=== PATIENT | female | born 1945 | race Caucasian/White ===

== ENCOUNTER → 2018-01-04 11:14 | Outpatient (CLI) | payer MEDICARE, SELFPAY | PROVIDERS: PCP Internal Medicine; Visit Provider Family Medicine | DX: N89.8 Other specified noninflammatory disorders of vagina (principal) | CPT/HCPCS: 87070; 87077; 87086; 87186; 87205 ==

== ENCOUNTER → 2018-03-28 10:18 | Outpatient (CLI) | payer MEDICARE, SELFPAY ==
--- NOTE | 2018-03-28 | DI.MRI.S_ITS ---
PROCEDURE: MR KNEE RT WO CON INDICATIONS: PRIMARY OSTEOARTHRITIS OF RIGHT KNEE TECHNIQUE: Noncontrast sagittal PD fast spin echo and T2 fast spin echo with fat saturation, sagittal 3-D FLASH with fat saturation; coronal T1 spin echo and PD fast spin echo with fat saturation, and axial PD fast spin echo with fat saturation through the knee. COMPARISON: [facility], MR, KNEE WITHOUT CONTRAST, 02/26/2015, 8:23. [facility], MR, KNEE WITHOUT CONTRAST, 02/26/2015, 8:51. [facility], CR, XR KNEE ARTHRITIC SERIES BI, 02/27/2018, 13:05. FINDINGS: Image quality: Excellent. Menisci: There is linear and amorphous high signal intensity within the posterior horn and body of the medial meniscus without definite articular surface extension. Previously seen radial tear of the posterior horn medial meniscus at the meniscal root ligament insertion site is not seen on the current examination. Lateral extrusion of the lateral meniscus is present, as before. Severe degenerative tearing of the anterior and posterior horns lateral meniscus and lateral meniscal body is not significantly changed. Cruciate ligaments: The anterior and posterior cruciate ligaments appear intact. Medial structures: The medial collateral ligament appears intact. Moderate T2 signal elevation at the tibial insertion of the semimembranosus is present. Visualized portions of the pes anserinus tendons appear normal. Small amount of medial bursal fluid. Lateral structures: The lateral collateral ligament, long and short heads of the biceps femoris tendon appear intact. The popliteus tendon appears normal. Iliotibial band appears normal. Anterior structures: The quadriceps and patellar tendons appear intact. Patellar alignment is normal. No femoral trochlear dysplasia or ventral trochlear prominence. No edema in the infrapatellar fat pad. Bones and cartilage: No bone marrow contusions or fractures. Moderate tricompartmental periarticular osteophyte formation is present. Moderate articular cartilage loss overlying the weightbearing aspect of the medial femoral condyle measuring roughly 8 mm anteroposterior is unchanged. Severe articular cartilage loss overlies the weightbearing aspect of the lateral tibial plateau, as before. Moderate severe cartilage loss overlies the medial aspect of the medial patellar facet. Joint space: There is a small knee joint effusion and a small Galan's cyst. Small ganglion cyst adjacent to the popliteus. Normal appearing synovial plicae are incidentally noted. IMPRESSION: 1. Status post presumed repair of the previously seen posterior or medial meniscal tear. 2. No change in severe degenerative tearing of the lateral meniscus. 3. Tricompartmental articular cartilage loss. 4. Medial bursitis. 5. Insertional tendinitis of the semimembranosus. 6. Partial thickness anterior cruciate ligament tear. 7. Small knee joint effusion and Galan's cyst. Small ganglion cyst along the popliteus. Dictated by: Humble Londono M.D. on 03/28/2018 at 13:39 Approved by: Humble Londono M.D. on 03/28/2018 at 13:46
== END ==
PROVIDERS: PCP Internal Medicine; Visit Provider Orthopaedic Surgery
DX: M17.11 Unilateral primary osteoarthritis, right knee (principal); M23.241 Derangement of anterior horn of lateral meniscus due to old tear or injury, right knee; M23.251 Derangement of posterior horn of lateral meniscus due to old tear or injury, right knee; M70.51 Other bursitis of knee, right knee; M76.891 Other specified enthesopathies of right lower limb, excluding foot; M25.461 Effusion, right knee; M71.21 Synovial cyst of popliteal space [Baker], right knee; M67.461 Ganglion, right knee
CPT/HCPCS: 73721

== ENCOUNTER → 2018-05-22 08:11 | Outpatient (CLI) | payer MEDICARE, SELFPAY ==
[2018-05-22 09:16] LABS: Add Manual Diff / Slide Review NO; Eosinophils Percent Auto 3.1 % (2-4); Hematocrit 39.7 % (36-46); Hemoglobin 13.5 g/dL (12.0-16.0); Lymphocytes Percent Auto 25.2 % (25-40); Mean Corpuscular HGB Conc 33.9 % (30-36); Mean Corpuscular Hemoglobin 30.8 PG (26-34); Mean Corpuscular Volume 90.8 fL (80-100); Monocytes Percent Auto 10.4 % (3-14); Neutrophils Absolute Auto 2700 /uL (3000-5900); Neutrophils Percent Auto 60.3 % (50-75); Platelet Count 350 X10^3/uL (150-400); Red Blood Cell Count 4.37 X10^6/uL (4.0-5.2); Red Cell Distribution Width 15.2 % (11.6-14.8); White Blood Cell Count 4.5 X10^3/uL (4.5-11.0)
[2018-05-22 09:20] LABS: Carbon Dioxide 28 mmol/L (22-32); Chloride 103 mmol/L (98-107); HEMOLYSIS < 15 (0-50); Potassium 4.3 mmol/L (3.4-5.1); Sodium 142 mmol/L (137-145)
== END ==
PROVIDERS: Family Provider Family Medicine; PCP Family Medicine; Visit Provider Orthopaedic Surgery
DX: Z01.812 Encounter for preprocedural laboratory examination (principal); Z01.818 Encounter for other preprocedural examination
CPT/HCPCS: 36415; 80051; 85025; 93005

== ENCOUNTER 2018-06-22 15:19 | Inpatient (IN) | payer MEDICARE, SELFPAY ==
[2018-06-12 09:45] VITALS: BMI 27.3
[2018-06-21] VITALS (14 sets, daily range): BP systolic 83–151; BP diastolic 31–90; PULSE 53–71; RESP 12–18; TEMP 35.6–36.8; O2SAT 95–100; BMI 27.3
--- NOTE | 2018-06-21 06:30 | DI.RAD.S_ITS ---
PROCEDURE: XR KNEE RT 1TO2V INDICATIONS: TOTAL RIGHT KNEE TECHNIQUE: 2 view(s) of the knee acquired. COMPARISON: [facility] [place], CR, XR KNEE ARTHRITIC SERIES BI, 02/27/2018, 13:05. FINDINGS: Bones: Patient is status post knee joint arthroplasty. Hardware components are in expected positions. Visualized bony structures are intact. A small enthesophyte is evident overlying the medial femoral condyle, likely related to prior medial collateral ligament injury, unchanged since the prior radiograph. Soft tissues: Overlying postoperative changes are noted. There is soft tissue edema, air, and fluid are present. Skin fela are seen overlying the anterior margin of the knee. No unexpected radiopaque foreign bodies are identified. IMPRESSION: Expected postoperative changes related to a total right knee arthroplasty. Dictated by: Shayan Miller M.D. on 06/21/2018 at 9:04 Approved by: Shayan Miller M.D. on 06/21/2018 at 9:05
[2018-06-21] MEDS: CELECOXIB 200 MG CAPSULE PO (06:50)
[2018-06-21] MEDS: ACETAMINOPHEN 325 MG TABLET 975 MG PO (06:50)
[2018-06-21] MEDS: LACTATED RINGERS 1,000 ML 42 ML IV ×3 (06:50→11:07)
[2018-06-21] MEDS: PREGABALIN 75 MG CAPSULE PO (06:50)
--- NOTE | 2018-06-21 07:28 | PM.PREOP ---
Pre-operative Note Interval Note Pre-op Check: Yes History & Physical Reviewed by Physician and Yes Exam Performed Changes: No
--- NOTE | 2018-06-21 07:28 | PM.OP.1 ---
Operative Date/Time/Diagnoses Date of procedure: 06/21/18 Time of procedure: 09:18 Pre-op diagnosis: Right knee osteoarthritis Post-op diagnosis: same Procedure & Clinicians Procedure: Right total knee arthroplasty Same procedure as scheduled: Yes Indications: The patient presents today for total knee arthroplasty after failure of conservative treatment. The nature of the procedure including the risks and benefits, alternatives, postoperative course and expected outcome were discussed and all questions answered. Consent was obtained. Operative site confirmed and marked. Surgeon: Martín Noble Beauty Therapist: Vel Green Anesthesia Type: Spinal and Local Operative Notes Findings: Severe osteoarthritis with valgus alignment. Closure Type: primary Specimen(s): none sent Implants & Drains: [employer] BCS: 5 femoral component, 3 tibial component, 9 mm BCS polyethylene tray and 32 x 9 mm round patella Applied: implant(s) Estimated Blood Loss (mL): 50 Blood products transfused: none Tourniquet time (min): 18 Procedure in detail: The patient was taken to the operative suite and placed under spinal anesthesia. The patient was given prophylactic antibiotics prior to surgery. The patient was also given tranexamic acid, 1 g, just prior to surgery for postoperative hemostasis. The lateral knee was prepped and the joint injected with 20 mL of 1% Lidocaine with epinephrine. The knee was then prepped and draped in usual sterile fashion. The leg was exsanguinated with an Esmarch dressing and the tourniquet raised to 250 torr. A 15 cm anterior incision was made. Next a medial trivector arthrotomy was made. The extensor mechanism was marked to ensure accurate repair. Initial exposing dissection was carried out medially and laterally. The knee was then extended and the patellar thickness was measured and a cut made removing approximately 9 mm of bone with a goal of restoring normal patellar thickness. The patella was then sized and drilled. Some excess lateral bone was excised and the patellofemoral ligament released. The tourniquet was then released. The knee was then flexed and the [employer] femoral guide was placed. The anterior pins were placed and the distal rotation holes drilled. The distal cutting guide was placed and the templated distal femoral cut was made. The templating cutting block was then placed and the anterior, posterior and chamfer cuts made. The [employer] tibial guide was placed and the alignment checked along the axis of the proximal tibial with a radha. The proximal tibial cut was then made with an oscillating saw. All meniscus and bony debris was then removed. Flexion extension gaps were checked. The knee was somewhat tight laterally in extension as expected from her preoperative deformity. Medial lateral balance was corrected by releasing the lateral capsule with a 15 blade using a pie crust type technique. Flexion extension spaces were well balanced. The soft tissues were then injected with a combination of 20 mL of half percent Marcaine with epinephrine and 20 mL of Exparel. The trial components were then placed. The knee went into full extension and flexion beyond 120?. There was excellent medial- lateral balance throughout motion. Patellar tracking was excellent. The trial components were removed and size is confirmed for the final implants. The knee was then exsanguinated with an Esmarch dressing and the tourniquet reapplied for cementing. The knee was cleansed with Pulsavac irrigation and dried. The final components were cemented in with high viscosity vacuum mixed bone cement with antibiotics. The knee was held in extension and the patellar clamp until the cement had adequately cured. The knee was then irrigated with dilute Betadine solution. The extensor mechanism was closed with 5 interrupted #1 Vicryl sutures in 90 degrees of flexion. The joint was then injected with a combination of 1 g of tranexamic acid and 20 mL of quarter percent Marcaine with epinephrine. The subcutaneous tissue was closed with 2-0 Vicryl. The skin was closed with fela and surgical adhesive. An Aquacell dressing and Tom wrap were then applied. Complications: none Condition: stable Disposition: PACU Plan for aftercare: David
[2018-06-21] MEDS: CEFAZOLIN 2 GM/100 ML FROZ.PIGGY IV (07:50)
--- NOTE | 2018-06-21 08:26 | SUR.OPER ---
Supine on padded OR bed. Pillow under head, arms secured on padded armboards <90 degree abduction. Safety belt across torso. Non-operative leg secured with tape over blanket over lower leg. Operative leg secured in DeMayo/Arsen positioner. Foam padded brace at thigh of operative leg.
[2018-06-21] MEDS: BUPIVACAINE 0.5% W/ EPI (PF) 20 ML, BUPIVACAINE LIPOSOME 266 MG, SODIUM CHLORIDE 0.9% 2... INJ (08:33)
[2018-06-21] MEDS: TRANEXAMIC ACID 1,000 MG VIAL 1000 MG INJ (08:36)
[2018-06-21] MEDS: BUPIVACAINE 0.5% W/ EPI (PF) 10 ML, TRANEXAMIC ACID 1,000 MG, SODIUM CHLORIDE 0.9% 20 ML INJ (08:36)
[2018-06-21] MEDS: POVIDONE-IODINE 15 ML, SODIUM CHLORIDE 0.9% 250 ML TOP (08:41)
[2018-06-21] MEDS: LIDOCAINE 1% W/EPI INJ 20 ML INJ (08:42)
--- NOTE | 2018-06-21 13:11 | CM.IDA ---
Discharge Planning/Care Management CM Discharge Assessment Start: 06/21/18 12:49 Freq: Status: Active Protocol: Document 06/21/18 12:49 ASHWINI (Rec: 06/21/18 13:11 ASHWINI [id number]) Discharge Planning Assessment Assigned Hvac Maintenance Technician ADRI Aleman DPOA/Assigned Designee Name Dereck Crocker Contact Information [phone] H; [phone] C Advance Directives? Yes Advance Directives on File No: Will bring DOS History Provided By Patient Prior Living Arrangements House Household Members spouse Type of transporation used prior to Drives own vehicle admit Comment No substantial information on the chart yet. Pt off the floor, in the OR when this ADMISSIONS CONSULTANT attempted brief assessment No PT note yet. Will plan to complete full DCP assessment tomorrow. Review Status In Process Pre
--- NOTE | 2018-06-21 15:51 | PC.NURSE ---
Addendum entered by Mary Carmen Banerjee 06/21/18 18:13: 1800: Pain meds are relieving her pain, now at a 3 when not moving and a 6 when moving her right leg/knee. [address] laterally aside her right knee, patient ate dinner well, in good spirits. Using incentive spirometer, great lung capacity and clear on auscultation. Original Note: 1530: Applied new ice pack to right knee (operative site). Retrieved incentive spirometer from patient's bag, and provided patient teaching. Pain 01/31, waiting on pain meds order.
--- NOTE | 2018-06-21 15:52 | PC.NURSE ---
Addendum entered by Kasey Flynn R.N. 06/22/18 00:45: Pt reports feels as though pain medications are helping to manage pain. Up to commode with assist x 1. Ice to right knee. RLE supported on single lengthwise pillow. Positive sensation with palpable pedal pulses x 2. Denies nausea. Reports is able to sleep for short periods. Original Note: Addendum entered by Kasey Flynn R.N. 06/21/18 21:41: Full sensation with intact CMS to BL LE's. Ice to right knee and pain meds prn. Rates pain 6-7/10 with activity/movement and as low as 3/10 at rest. BL calf scd's in place. [place] patient using own I.S. independently. Original Note: Addendum entered by Kasey Flynn R.N. 06/21/18 16:14: Discussed with FIOR Duron pt's excellent po intake. Orders to discontinue iv fluids and this was done. Administered 10 mg oxycodone for right knee pain 7.5/10. Will continue to monitor for relief. Instructed pt in prn nature of pain med administration. Original Note: Pt awake and alert in bed and has used commode with assist x 2. Able to void. Denies nausea and taking full liquid diet and solid foods well. Admits to sudden onset pain 7/10 to right knee. No pain med orders per emar. Attempted to contact Dr. Noble via fax in surgery. Discussed need with CHAIRMAN & CHIEF EXECUTIVE OFFICERSoraya. FIOR Duron now up on floor and need for pain med orders addressed. Ice to pt's right knee and pt was informed.
[2018-06-21] MEDS: OXYCODONE IR 10 MG TABLET PO ×2 (16:04→20:07)
[2018-06-21] MEDS: hydrOXYzine pamoate 25 MG CAPSULE PO ×2 (16:51→21:05)
[2018-06-21] MEDS: SODIUM CHLORIDE 0.9% FLUSH 10 ML IV ×2 (16:53→20:07)
[2018-06-21] MEDS: ACETAMINOPHEN 325 MG TABLET 650 MG PO ×2 (16:53→23:08)
[2018-06-21] MEDS: ASPIRIN EC 81 MG TABLET PO (20:07)
[2018-06-22] VITALS: BP 141/79; PULSE 71; RESP 16; TEMP 36.9; O2SAT 100
[2018-06-22] MEDS: OXYCODONE IR 10 MG TABLET PO ×6 (00:07→20:53)
[2018-06-22] MEDS: hydrOXYzine pamoate 25 MG CAPSULE PO ×5 (01:38→20:54)
[2018-06-22 04:53] VITALS: BP 133/63; PULSE 74; RESP 16; TEMP 37.1; O2SAT 97
--- NOTE | 2018-06-22 05:08 | PC.NURSE ---
Pt c/o nausea, no emesis, given 25mg vistaril and gingerale as requested.
[2018-06-22 07:55] VITALS: BP 140/68; PULSE 77; RESP 18; TEMP 37.5; O2SAT 98
[2018-06-22] MEDS: ASPIRIN EC 81 MG TABLET PO ×2 (08:24→20:54)
[2018-06-22] MEDS: ACETAMINOPHEN 325 MG TABLET 650 MG PO ×3 (08:24→21:54)
[2018-06-22] MEDS: MELOXICAM 7.5 MG TABLET 15 MG PO (08:24)
--- NOTE | 2018-06-22 10:06 | P.PN_ITS ---
Subjective Date Patient Seen: 06/22/18 Time Patient Seen: 10:03 Interval history: Hospital day 2, postop day 1 following right total knee arthroplasty by Dr. Noble. Patient is remained stable overnight. Has had some nausea. Given Vistaril which was not as helpful. Pain controlled with oxycodone 10 mg. Lab today notes H&H 13.5/39.7. Patient did work with physical therapy some yesterday but having increasing pain today. She does not feel that she is ready to be discharged home at this time. Exam Vital Signs (past 8 hours): - 06/22/18 04:53 06/22/18 07:55 Temperature 98.8 F 99.5 F Pulse Rate 74 77 Respiratory Rate 16 18 Blood Pressure 133/63 140/68 Pulse Oximetry 97 98 Oxygen Delivery Method Room Air Oxygen Flow Rate 0 Narrative Exam Narrative: Alert, oriented in no acute distress lying in bed. Legs. Tom wrap an Aquacel dressing to right knee is dry without drainage or inflammation. No calf pain or swelling. Pulses symmetrical. Patient having difficulty firing her quad. Assessment & Plan Post-op Postoperative Procedures Operation Date: 06/21/18 07:45 Actual Procedures Side Surgeon p Total Knee Arthroplasty Right Martín Noble MD Plan: Patient will work with physical therapy today. Given prescriptions for Zofran, docusate, senna today. Anticipate discharge home tomorrow if she is stable. She is scheduled to go to [facility] in accordance. Quality VTE Deep Vein Thrombosis/Pulmonary Embolism Present on Admission: No
[2018-06-22 11:25] VITALS: BP 146/55; PULSE 76; RESP 16; TEMP 37.2; O2SAT 93
[2018-06-22] MEDS: DOCUSATE 100 MG CAPSULE PO ×2 (11:32→20:54)
[2018-06-22] MEDS: SODIUM CHLORIDE 0.9% FLUSH 10 ML IV ×2 (11:32→20:55)
--- NOTE | 2018-06-22 12:46 | PC.NURSE ---
Addendum entered by Talya Shankar R.N. 06/22/18 14:59: ADDENUM - the cardiac note was entered on the wrong pt and has been updated to correct pt. Original Note: Addendum entered by Talya Shankar R.N. 06/22/18 14:29: CARDIAC/MS - standby assist up oob w/fww, ambul into hallway, icu notified and pt hr did elev 120's to approx 135 during mobilization with some incr sob, ret to chair and hr down to low 100-102/ Original Note: Addendum entered by Talya Shankar R.N. 06/22/18 14:16: PAIN/MS/GI - phys therapy in and pt stood at bedside, states pain incr to 9/10 and could not bear wt and ambul, onset dizziness and nausea and ret to bed, given 4mg sl zofran, enc fluids. bp 140's/60's Original Note: AM NOTE - alert, states pain 8 on scale 0/10, denies nausea this am, mikey gen breakfast, nausea resolved after earlier vistaril, given 10mg oxycodone and 650mg po tylenol w/breakfast, davida wrap over aquacell cdi, ra 99%, bp 140/68, spoke to Daphne HCILDRESS this am as no PT ordered, new order rec'd and discussed mobilization with phys therapy, after lunch mikey, pt req pain medication and vistaril for discomfort 7 on scale 0/10, given 10mg oxycodone and 25mg po vistaril.
--- NOTE | 2018-06-22 13:30 | PT.IIE ---
Current Diagnoses Bilateral primary osteoarthritis of knee (06/21/18) Surgery Performed Operation Date: 06/21/18 07:45 Actual Procedures p Total Knee Arthroplasty(Right) - Martín Noble MD Surgical History (Last Updated 06/12/18 @ 10:25 by Domonique Mallory, RN) H/O right knee surgery (Acute) History of colonoscopy (Acute) History of eye surgery (Acute) History of left oophorectomy (Acute) History of right oophorectomy (Acute) Anesthesia complication (Resolved) History of cataract removal with insertion of prosthetic lens (Resolved 2014) History of cataract removal with insertion of prosthetic lens (Resolved 2014) History of dacryocystorhinostomy (Resolved 2013) History of eye surgery (Resolved 1954) History of non-cataract eye surgery (Resolved 2015) History of non-cataract eye surgery (Resolved 2016) History of non-cataract eye surgery (Resolved 2016) History of non-cataract eye surgery (Resolved 2015) History of oophorectomy, unilateral (Resolved 1967) History of oophorectomy, unilateral (Resolved 2005) Status post arthroscopy (Resolved 2014) Status post breast biopsy (Resolved 1989) Status post hysterectomy (Resolved 1979) Status post partial mastectomy (Resolved 2011) Status post tubal ligation (Resolved 1974) Medical History (Last Updated 06/12/18 @ 10:26 by Domonique Mallory, RN) Benign paroxysmal vertigo (Acute) Chronic kidney disease (Acute) Concussion (Acute ~05/2017) Degenerative arthritis of right knee (Acute) History of hysterectomy (Acute) Hyperlipidemia (Acute) Infection, Pseudomonas (Acute) Insomnia (Acute) Primary osteoarthritis of both knees (Acute) Surgical menopause (Acute) Hypertension (Chronic 2007) Kidney disease (Chronic 2009) Migraines (Chronic 1984) Osteoarthritis (Chronic 2011) Osteopenia (Chronic 2009) Vertigo (Chronic 2014) Breast cancer (Resolved 2011) Cataracts, bilateral (Resolved 2011) Chicken pox (Resolved 1954) Fracture (Resolved 1959) History of heavy periods (Resolved 1974) Infertility (Resolved 1967) Measles (Resolved 1954) Ovarian cyst (Resolved 1967) Stroke (Resolved Unknown) Physical Therapy Inpatient Evaluation/Re-Eval M1 PT/OT-IP Prior Functional Status Start: 06/22/18 14:21 Freq: NEEDED Status: Active Protocol: Document 06/22/18 13:30 AB (Rec: 06/22/18 16:54 AB [id number]) Medical Review Prior Functional Status Medical History Reviewed Yes Communication able to make needs known Mobility and Gait pt stated that she is independent with all mobilities and ambulaion without AD Social History Household Members spouse Living Arrangements House Number of Floors (Floors) One Floor Number of Stairs To Enter/Railing? 1 step to enter Home Environment High Toilet Walk in Shower Home Equipment Four Wheel Walker Hand Held Shower Employment Status Retired Additional Social History Comment pt has a safety frame rail in the toilet pt has a hurrycane M2 PT-IP Current Condition Start: 06/22/18 14:21 Freq: NEEDED Status: Active Protocol: Document 06/22/18 13:30 AB (Rec: 06/22/18 16:54 AB [email or web address]) Physical Therapy Current Condition Current Condition Evaluation Date 06/22/18 Treatment Diagnosis s/p R TKA; difficulty in walking Onset Date 06/21/18 Weight Bearing Status Weight Bearing Status Weight Bear as Tolerated M3 PT-IP Subjective Start: 06/22/18 14:21 Freq: NEEDED Status: Active Protocol: Document 06/22/18 13:30 AB (Rec: 06/22/18 16:54 AB [email or web address]) Subjective Physical Therapy Visit Type Type Initial Evaluation Visit Start Time 13:30 Visit Stop Time 14:15 Total Visit Minutes 45 Number of HUMAN RESOURCES TALENT MANAGER Visits 0 Physical Therapy Visit Comments Patient Comments pt c/o increase R knee pain but willing to do PT Therapy Pain Assessment Pain When Pain Assessed At Rest Pain Present Pain Present Pain Reported Location Right Knee Intensity 8 Scale Used increased to 9/10 with mobility Pain Behaviors Guarding Pain Management Techniques Apply Cold Re-positioning Timing of Activity with Medications M4 PT-IP Mobility and Gait Start: 06/22/18 14:21 Freq: NEEDED Status: Active Protocol: Document 06/22/18 13:30 AB (Rec: 06/22/18 16:54 AB [email or web address]) PT-Bed Mobility Assessment Supine to Sit Supine to Sit Maximum Assistance 1 Person Assistance Sit to Supine Sit to Supine Maximum Assistance 1 Person Assistance Scooting Scooting to Edge of Bed Maximum Assistance PT-Transfer Assessment Sit to and From Stand Sit to and from Stand Maximum Assistance 1 Person Assistance Use of Upper Extremities Equipment Transfer Assistive Device Gait Belt Front Wheeled Walker Orthotic/Prosthetic Devices or Brace: No Comments Mobility Comments pt requested to go back to bed after ambulation with c/o increase R knee pain. a Gait Assessment Gait Gait Assistance Required: Maximum Assistance Distance (Feet) 3 Assistive Devices Assistive Device Gait Belt Front Wheeled Walker Orthotic/Prosthetic Devices or Brace: No Gait Deviations General Gait Pattern Antalgic Decreased Stride Length Decreased Feet Clearance Step-to Gait Factors Limiting Gait Function Factors Limiting Gait Function Decreased Activity Tolerance Decreased Strength Limited Range of Motion Pain Poor Balance Poor Safety Awareness Comments Gait Comments pt requiring max A and max cues with sit to stand and ambulation using FWW. unable to tolerate much activity due to c/o pain. pt unable to put much weight on RLE and required max A to stabilize with (+) R knee buckling. pt c /o nausea with mobility. BP in supine prior to mobility: 137/78 after standing/ ambulation: 124/76. PT-Balance Assessment Sitting Balance and Reactions Static Sitting Balance Ability Good Dynamic Sitting Balance Ability Good Standing Balance and Reactions Static Standing Balance Ability Poor Dynamic Standing Balance Ability Poor Device Used FWW M5 PT-IP Objective Assessments Start: 06/22/18 14:21 Freq: NEEDED Status: Active Protocol: Document 06/22/18 13:30 AB (Rec: 06/22/18 16:54 AB [email or web address]) Orientation Orientation/Cognition Level of Alertness Alert Orientation Name Place Situation Language Function Ability Hard of Hearing Safety Awareness Decreased Safety Awareness Gross Range of Motion Lower Extremity ROM Assessment Right Impaired Strength Lower Extremity Strength Assessment Bilaterally Impaired Comments Strength Comments LLE: 4-/5 RLE 3-/5 Sensation Assessment Sensation Gross Sensation WNL M6 PT-IP Treatment Start: 06/22/18 14:21 Freq: NEEDED Status: Active Protocol: Document 06/22/18 13:30 AB (Rec: 06/22/18 16:54 AB [email or web address]) Physical Therapy Treatment Exercises Exercises Ankle Pumps Quad Sets Heel Slides Education Education Provided Precautions Weight Bearing Status Post-Op Packet Safety Other Treatments Other Treatment Performed pt educated on d/c plan recommendation to snf at this time and pt agreed. M7 PT-IP Assessment and Plan Start: 06/22/18 14:21 Freq: NEEDED Status: Active Protocol: Document 06/22/18 13:30 AB (Rec: 06/22/18 16:54 AB [email or web address]) PT Summary Assessment and Plan Potential Rehabilitation Potential Fair Status of Condition at Evaluation Evolving Summary Impairments Pain ROM Strength Balance Coordination Sensation Tone Cognition Bed Mobility Transfers Gait Activity Tolerance Assessment Summary pt requiring max A with mobility and unable to tolerate much due to c/o increase pain affecting function. pt will require SNF rehab at this time to improve strength and function prior to d/c home. Goals Bed Mobility Goal Standby Assistance Transfer Goal Standby Assistance Front Wheeled Walker Gait Goal Standby Assistance Front Wheel Walker Gait Distance 50 Other Goals up/down 1 step using fWW CGA Days to Meet Goals 5 Frequency of Treatment Frequency Of Treatment Twice a Day Treatment Plan Physical Therapy Treatment Plan Bed Mobility Training Transfer Training Gait Training Therapeutic Exercise Balance Retraining Post Op Education Discharge Planning Hot or Cold Pack Neuromuscular Re-ed Coordination Retraining Manual Therapy Other Recommendations and Next Treatment ambulation, LE strengthening Focus Recommendations To Nursing Amount of Assist Needed 1 Person Assist Discharge Recommendations PT Discharge Recommendations SNF Rehab
[2018-06-22] MEDS: ONDANSETRON 4 MG ODT PO (14:11)
--- NOTE | 2018-06-22 15:44 | CM.DPC ---
Addendum entered by ADRI Partida 06/22/18 16:19: Pt changed to inpt status as of 06.22.18. This MARINE CHRONOMETER ASSEMBLER will update patient. CM team will plan to fax referral to [facility]. Pt Medicare eligible for SNF 06.25.18 ASHWINI Original Note: DCP Cont: Met w/pt this afternoon, explained SW role. Pt is mostly indp at baseline, lives w/spouse. PT recommending SNF stay prior to return home and pt agrees this is a good idea and first choice is [facility]. Explained that pt's status is being reviewed and this will effect Medicare coverage for SNF. Pt very pleasant; this MARINE CHRONOMETER ASSEMBLER explained an attempt would be made today before 1600 to update on inpt vs obs vs SDC status. Following closely. ASHWINI
[2018-06-22 16:05] VITALS: BP 147/66; PULSE 70; RESP 18; TEMP 37.1; O2SAT 95
--- NOTE | 2018-06-22 18:05 | PC.NURSE ---
Pt eager to participate in mobilization s/p right TKA. Up to chair for dinner per pt request. Pt calmly reports pain to right knee 01/31. Ice to knee. Full sensation to BL LE's. Encouraged ankle waving and calf pumping while scd's are off. Pt provides return demonstration. Denies nausea. Taking oral fluids and foods well. Tylenol, vistaril and oxycodone as ordered.
[2018-06-22 19:30] VITALS: BP 137/55; PULSE 70; RESP 18; TEMP 36.8
[2018-06-22] MEDS: SENNOSIDES 8.6 MG TABLET PO (20:54)
[2018-06-23] VITALS (7 sets, daily range): BP systolic 131–149; BP diastolic 54–71; PULSE 63–85; RESP 14–18; TEMP 36.7–37.2; O2SAT 92–97
[2018-06-23] MEDS: OXYCODONE IR 10 MG TABLET PO ×6 (01:17→23:57)
[2018-06-23] MEDS: hydrOXYzine pamoate 25 MG CAPSULE PO ×6 (01:18→23:57)
[2018-06-23] MEDS: ACETAMINOPHEN 325 MG TABLET 650 MG PO ×2 (04:09→10:01)
[2018-06-23] MEDS: MELOXICAM 7.5 MG TABLET 15 MG PO (08:59)
[2018-06-23] MEDS: SENNOSIDES 8.6 MG TABLET PO ×2 (08:59→20:24)
[2018-06-23] MEDS: DOCUSATE 100 MG CAPSULE PO ×2 (08:59→20:24)
[2018-06-23] MEDS: ASPIRIN EC 81 MG TABLET PO ×2 (08:59→20:24)
[2018-06-23] MEDS: SODIUM CHLORIDE 0.9% FLUSH 10 ML IV ×2 (09:24→21:45)
--- NOTE | 2018-06-23 11:00 | PT.IPTN ---
Current Diagnoses Bilateral primary osteoarthritis of knee (06/21/18) Surgery Performed Operation Date: 06/21/18 07:45 Actual Procedures p Total Knee Arthroplasty(Right) - Martín Noble MD Physical Therapy Treatment Note M2 PT-IP Current Condition Start: 06/22/18 14:21 Freq: NEEDED Status: Active Protocol: Document 06/22/18 13:30 AB (Rec: 06/22/18 16:54 AB [email or web address]) Physical Therapy Current Condition Current Condition Evaluation Date 06/22/18 Treatment Diagnosis s/p R TKA; difficulty in walking Onset Date 06/21/18 Weight Bearing Status Weight Bearing Status Weight Bear as Tolerated M3 PT-IP Subjective Start: 06/22/18 14:21 Freq: NEEDED Status: Active Protocol: Document 06/23/18 11:00 GGD (Rec: 06/23/18 12:46 GGD [id number]) Subjective Physical Therapy Visit Type Type Treatment Note Visit Start Time 10:35 Visit Stop Time 11:00 Total Visit Minutes 25 Number of POT PRESS OPERATOR Visits 1 Physical Therapy Visit Comments Patient Comments Pt states she having pain when standing. Therapy Pain Assessment Pain When Pain Assessed At Rest Pain Present Pain Present Pain Reported Location Right Knee Intensity 7 Scale Used Numeric (1 - 10) Pain Management Techniques Apply Cold Re-positioning Timing of Activity with Medications M4 PT-IP Mobility and Gait Start: 06/22/18 14:21 Freq: NEEDED Status: Active Protocol: Document 06/23/18 11:00 GGD (Rec: 06/23/18 12:46 GGD [id number]) PT-Bed Mobility Assessment Supine to Sit Supine to Sit Minimal Assistance Scooting Scooting to Edge of Bed Standby Assistance PT-Transfer Assessment Sit to and From Stand Sit to and from Stand Minimal Assistance 1 Person Assistance Use of Upper Extremities Equipment Transfer Assistive Device Gait Belt Front Wheeled Walker Orthotic/Prosthetic Devices or Brace: No Transfers Transfer Destination Chair Transfer Ability Level of Assist Minimal Assistance 1 Person Assistance Use of Upper Extremities Gait Assessment Gait Gait Assistance Required: Minimum Assistance 1 Person Assist Distance (Feet) 4 Able to Maintain Weight Bearing Status Yes During Gait Assistive Devices Assistive Device Gait Belt Front Wheeled Walker Orthotic/Prosthetic Devices or Brace: No Gait Deviations General Gait Pattern Antalgic Decreased Stride Length Decreased Feet Clearance Step-to Gait Factors Limiting Gait Function Factors Limiting Gait Function Decreased Activity Tolerance Decreased Strength Limited Range of Motion Pain Poor Balance Poor Safety Awareness M5 PT-IP Objective Assessments Start: 06/22/18 14:21 Freq: NEEDED Status: Active Protocol: Document 06/22/18 13:30 AB (Rec: 06/22/18 16:54 AB [email or web address]) Orientation Orientation/Cognition Level of Alertness Alert Orientation Name Place Situation Language Function Ability Hard of Hearing Safety Awareness Decreased Safety Awareness Gross Range of Motion Lower Extremity ROM Assessment Right Impaired Strength Lower Extremity Strength Assessment Bilaterally Impaired Comments Strength Comments LLE: 4-/5 RLE 3-/5 Sensation Assessment Sensation Gross Sensation WNL M6 PT-IP Treatment Start: 06/22/18 14:21 Freq: NEEDED Status: Active Protocol: Document 06/23/18 11:00 GGD (Rec: 06/23/18 12:46 GGD [id number]) Physical Therapy Treatment Exercises Exercises Ankle Pumps Quad Sets Heel Slides Seated Knee Flexion/Extension Education Education Provided Weight Bearing Status Safety M7 PT-IP Assessment and Plan Start: 06/22/18 14:21 Freq: NEEDED Status: Active Protocol: Document 06/23/18 11:00 GGD (Rec: 06/23/18 12:46 GGD [id number]) PT Summary Assessment and Plan Summary Assessment Summary Pt improving with mobility. She need min A for mobility. She did need mod cues for gait pattern, weight shift and use of UE. She had difficulty unloading left LE for functional all steps. Frequency of Treatment Frequency Of Treatment Twice a Day Treatment Plan Other Recommendations and Next Treatment ambulation, LE strengthening Focus Recommendations To Nursing Amount of Assist Needed 1 Person Assist Discharge Recommendations PT Discharge Recommendations SNF Rehab
--- NOTE | 2018-06-23 12:13 | PC.NURSE ---
Addendum entered by Talya Shankar R.N. 06/23/18 14:11: PAINGI- seated chair after lunch, pain 4-6 now at rest, given 10mg po oxycodone and 25mg po vistaril for afternoon phys therapy. Discussed constipation and narcotics, doesn't really like prune juice but is willing to try some in the am in addition to the ordered laxatives. Original Note: AM NOTE - pt is alert, mikey gen diet this am, no nausea, + bt and flatus, states pain at rest 6-7 on scale 0/10, + cms rle, davida wrap over aquacell w/small spot old serosang within margins at distal end, hr 84, ra 97%, later given oxycodone 10mg with 25mg po vistaril and tylenol and pt able stand w/fww and tsf to chair with phys therapy, states pain better managed this am than yesterday.
--- NOTE | 2018-06-23 15:08 | PM.PNPO.1 ---
Subjective Date Patient Seen: 06/23/18 Time Patient Seen: 06:39 Interval history: POD #2 s/p total knee arthroplasty with Dr. Noble. Patient has been very slow to ambulate. Pain was not well controlled yesterday. She is eating and voiding without difficulty or assistance. Exam Vital Signs (past 8 hours): - 06/23/18 07:55 06/23/18 11:35 Temperature 98.2 F 98.5 F Pulse Rate 63 69 Respiratory Rate 16 14 Blood Pressure 136/59 L 144/54 H Pulse Oximetry 95 97 Oxygen Delivery Method Room Air Oxygen Flow Rate 0 Narrative Exam Narrative: Patient lying in bed in no acute distress. She is alert and oriented x3. Dressing on knee is CDI. Calves are soft, compressible, nontender bilaterally. Sensation intact light touch throughout bilateral lower extremities. Pulses are symmetrical. Assessment & Plan Post-op (1) S/P total knee arthroplasty: Current Visit: Yes Status: Acute Postoperative Procedures Operation Date: 06/21/18 07:45 Actual Procedures Side Surgeon p Total Knee Arthroplasty Right Martín Noble MD patient will continue to mobilize with physical therapy. She has been very slow to get out of bed and will likely need a [facility] facility for continued rehab. Continue current pain management. She will likely discharge in the next 2-3 days to [facility] facility. Quality VTE Deep Vein Thrombosis/Pulmonary Embolism Present on Admission: No
--- NOTE | 2018-06-23 15:13 | P.PN_ITS ---
Subjective Date Patient Seen: 06/23/18 Time Patient Seen: 06:39 Interval history: POD #2 s/p total knee arthroplasty with Dr. Noble. Patient has been very slow to ambulate. Pain was not well controlled yesterday. She is eating and voiding without difficulty or assistance. Exam Vital Signs (past 8 hours): - 06/23/18 07:55 06/23/18 11:35 Temperature 98.2 F 98.5 F Pulse Rate 63 69 Respiratory Rate 16 14 Blood Pressure 136/59 L 144/54 H Pulse Oximetry 95 97 Oxygen Delivery Method Room Air Oxygen Flow Rate 0 Narrative Exam Narrative: Patient lying in bed in no acute distress. She is alert and oriented x3. Dressing on knee is CDI. Calves are soft, compressible, nontender bilaterally. Sensation intact light touch throughout bilateral lower extremities. Pulses are symmetrical. Assessment & Plan Post-op (1) S/P total knee arthroplasty: Current Visit: Yes Status: Acute Postoperative Procedures Operation Date: 06/21/18 07:45 Actual Procedures Side Surgeon p Total Knee Arthroplasty Right Martín Noble MD patient will continue to mobilize with physical therapy. She has been very slow to get out of bed and will likely need a [facility] for [facility]. Continue current pain management. She will likely discharge in the next 2-3 days to [facility] facility. Quality VTE Deep Vein Thrombosis/Pulmonary Embolism Present on Admission: No
--- NOTE | 2018-06-23 15:15 | PT.IPTN ---
Current Diagnoses Bilateral primary osteoarthritis of knee (06/21/18) Presence of unspecified artificial knee joint (06/21/18) Surgery Performed Operation Date: 06/21/18 07:45 Actual Procedures p Total Knee Arthroplasty(Right) - Martín Noble MD Physical Therapy Treatment Note M2 PT-IP Current Condition Start: 06/22/18 14:21 Freq: NEEDED Status: Active Protocol: Document 06/22/18 13:30 AB (Rec: 06/22/18 16:54 AB [email or web address]) Physical Therapy Current Condition Current Condition Evaluation Date 06/22/18 Treatment Diagnosis s/p R TKA; difficulty in walking Onset Date 06/21/18 Weight Bearing Status Weight Bearing Status Weight Bear as Tolerated M3 PT-IP Subjective Start: 06/22/18 14:21 Freq: NEEDED Status: Active Protocol: Document 06/23/18 15:15 GGD (Rec: 06/23/18 15:27 GGD [email or web address]) Subjective Physical Therapy Visit Type Type Treatment Note Visit Start Time 14:50 Visit Stop Time 15:15 Total Visit Minutes 25 Number of STRAW BALER Visits 2 Physical Therapy Visit Comments Patient Comments pt states she ready to go back to bed. Therapy Pain Assessment Pain When Pain Assessed At Rest Pain Present Pain Present Pain Reported Location Right Knee Intensity 7 Scale Used Numeric (1 - 10) Pain Management Techniques Apply Cold Re-positioning Timing of Activity with Medications M4 PT-IP Mobility and Gait Start: 06/22/18 14:21 Freq: NEEDED Status: Active Protocol: Document 06/23/18 15:15 GGD (Rec: 06/23/18 15:27 GGD [email or web address]) PT-Transfer Assessment Sit to and From Stand Sit to and from Stand Contact Guard Assistance 1 Person Assistance Use of Upper Extremities Equipment Transfer Assistive Device Gait Belt Front Wheeled Walker Orthotic/Prosthetic Devices or Brace: No Transfers Transfer Destination Bed Bedside Commode Transfer Ability Level of Assist Minimal Assistance 1 Person Assistance Use of Upper Extremities Comments Mobility Comments Pt transfer to bed and then BSC. RN in formed pt on BSC with call light in reach. Gait Assessment Gait Gait Assistance Required: Contact Guard Assist 1 Person Assist Distance (Feet) 10 Able to Maintain Weight Bearing Status Yes During Gait Assistive Devices Assistive Device Gait Belt Front Wheeled Walker Orthotic/Prosthetic Devices or Brace: No Gait Deviations General Gait Pattern Antalgic Decreased Stride Length Decreased Feet Clearance Step-to Gait Factors Limiting Gait Function Factors Limiting Gait Function Decreased Activity Tolerance Decreased Strength Limited Range of Motion Pain Poor Balance Poor Safety Awareness M5 PT-IP Objective Assessments Start: 06/22/18 14:21 Freq: NEEDED Status: Active Protocol: Document 06/22/18 13:30 AB (Rec: 06/22/18 16:54 AB [email or web address]) Orientation Orientation/Cognition Level of Alertness Alert Orientation Name Place Situation Language Function Ability Hard of Hearing Safety Awareness Decreased Safety Awareness Gross Range of Motion Lower Extremity ROM Assessment Right Impaired Strength Lower Extremity Strength Assessment Bilaterally Impaired Comments Strength Comments LLE: 4-/5 RLE 3-/5 Sensation Assessment Sensation Gross Sensation WNL M6 PT-IP Treatment Start: 06/22/18 14:21 Freq: NEEDED Status: Active Protocol: Document 06/23/18 15:15 GGD (Rec: 06/23/18 15:27 GGD [email or web address]) Physical Therapy Treatment Exercises Exercises Ankle Pumps Quad Sets Heel Slides Seated Knee Flexion/Extension Education Education Provided Weight Bearing Status Safety M7 PT-IP Assessment and Plan Start: 06/22/18 14:21 Freq: NEEDED Status: Active Protocol: Document 06/23/18 15:15 GGD (Rec: 06/23/18 15:27 GGD [email or web address]) PT Summary Assessment and Plan Summary Assessment Summary Pt progressing with mobility. She needed less assist with sit to stand and gait. She was able to progress gait distance. She did need cues for mobility. She improving with knee ROM. Frequency of Treatment Frequency Of Treatment Twice a Day Treatment Plan Other Recommendations and Next Treatment ambulation, LE strengthening Focus Recommendations To Nursing Amount of Assist Needed 1 Person Assist Discharge Recommendations PT Discharge Recommendations SNF Rehab
--- NOTE | 2018-06-23 15:48 | CM.DPC ---
DCP/SNF SNF/[facility] able to accept patient. Patient medicare eligible on Monday 06/25. Met with patient: patient remains agreeable to SNF/[facility]. Plan: [facility] when medically stable.
[2018-06-23] MEDS: SIMVASTATIN 40 MG TABLET PO (20:24)
[2018-06-24] VITALS (7 sets, daily range): BP systolic 135–161; BP diastolic 54–88; PULSE 75–93; RESP 13–28; TEMP 36.5–37.2; O2SAT 94–98
[2018-06-24] MEDS: OXYCODONE IR 10 MG TABLET PO ×3 (05:04→19:07)
[2018-06-24] MEDS: hydrOXYzine pamoate 25 MG CAPSULE PO ×2 (05:05→19:07)
--- NOTE | 2018-06-24 05:47 | PC.NURSE ---
RLE dressing cdi. +2 edema. cms+. able to ambulate slowly to the BSC. pain level is around 5-6/10. medicated pt w/oxycodone and vistaril. pt's last BM was last tuesday, i gave her some prune juice. call light in reach. bed alarm active.
[2018-06-24] MEDS: ALENDRONATE 70 MG TABLET PO (06:20)
[2018-06-24] MEDS: SODIUM CHLORIDE 0.9% FLUSH 10 ML IV ×2 (09:00→19:08)
[2018-06-24] MEDS: MELOXICAM 7.5 MG TABLET 15 MG PO (09:01)
[2018-06-24] MEDS: ASPIRIN EC 81 MG TABLET PO ×2 (09:02→19:07)
[2018-06-24] MEDS: FENOFIBRATE 160 MG TABLET PO (09:03)
--- NOTE | 2018-06-24 10:02 | PM.PNPO.1 ---
Subjective Date Patient Seen: 06/24/18 Time Patient Seen: 10:02 Interval history: Hospital day 4, postop day 3 following right total knee arthroplasty by Dr. Noble. Patient progressing slowly with ambulation and physical therapy. Needing and continue to assist. As recommended by PT patient had further therapy before going home. Has been taking oxycodone 10 mg and Tylenol for pain. Has had bowel movement but is loose. She is on docusate. She also was noted to have a rash to her lower back this morning. No itching noted. No other areas of rash noted. Exam Vital Signs (past 8 hours): - 06/24/18 05:15 06/24/18 07:45 Temperature 98.5 F 97.7 F Pulse Rate 86 85 Respiratory Rate 18 16 Blood Pressure 151/54 H 152/62 H Pulse Oximetry 95 96 Oxygen Delivery Method Room Air Oxygen Flow Rate 0 Narrative Exam Narrative: Alert, oriented no acute distress sitting in chair having breakfast. Back. There is a mildly erythematous macular rash to lumbar area only with blanching. Legs. Right knee Tom wrap removed. Aquacel dressing in place without drainage or inflammation. No calf pain but does have moderate swelling. Good pulses distally. Limited knee motion and weak quad strength. Assessment & Plan Post-op (1) Contact dermatitis: Current Visit: Yes Status: Acute Postoperative Procedures Operation Date: 06/21/18 07:45 Actual Procedures Side Surgeon p Total Knee Arthroplasty Right Martín Noble MD Plan: Patient will continue working with physical therapy today. She is scheduled to go to [facility] tomorrow. Will hold stool softener today. Will use cortisone cream for her rash as needed. Quality VTE Deep Vein Thrombosis/Pulmonary Embolism Present on Admission: No
--- NOTE | 2018-06-24 10:12 | PM.DS.1 ---
History of Present Illness Date Patient Seen: 06/24/18 Time Patient Seen: 10:12 Chief complaint: total knee arthroplasty [id number] Narrative: Hospital day 4, postop day 3 following left total knee arthroplasty by Dr. Noble. Patient has progressed with physical therapy. Still having noticeable pain to the left knee. Has been taking ibuprofen 600 mg and oxycodone 5 mg for pain. Patient is experiencing some worrying and anxiety regarding his healing. He does have history of prostate cancer with radical prostatectomy and is on hormone therapy for testosterone. Between his pain and increased sleep this is causing some emotional upset but he is improving. Patient is desiring to go home today. He does have physical therapy at [facility] starting next week. Has been able to void. Discharge Providers Date of admission: 06/21/18 06:13 Primary care physician: Fidelia Castro MD Consults: 06/21/18 06:30 Consult to Anesthesiology Routine Comment: Consulting Provider: Anesthesiologist Reason for consultation: Regional block for post operative pain control 06/22/18 11:13 Consult to Physical Therapy Evaluate & Treat Comment: Physician Instructions: Evaluate and Treat Discharge provider: Dwayne Schwartz PA-C Discharge Date: 06/24/18 Summary Discharge Diagnosis: Status post left total knee arthroplasty Hospital Course: Patient brought to hospital [facility] for above-noted surgery. Remained stable postoperatively. Progressed slowly with physical therapy and pain control. Ready for discharge home on postop day 3. Status at Discharge Cognitive/behavioral status at discharge: Alert in no acute distress. Functional status at discharge: uses cane/walker Overall status at discharge: patient is progressing back to baseline Time Spent with Patient Less than 30 minutes Exam Vital Signs (past 8 hours): - 06/24/18 05:15 06/24/18 07:45 Temperature 98.5 F 97.7 F Pulse Rate 86 85 Respiratory Rate 18 16 Blood Pressure 151/54 H 152/62 H Pulse Oximetry 95 96 Oxygen Delivery Method Room Air Oxygen Flow Rate 0 Narrative Exam Narrative: Left leg Aquacel dressing to left knee is dry without drainage or inflammation. Mild swelling of the knee and lower leg. Calf is nontender. Good pulses distally. Patient is able to fire his quad. Discharge Plan Discharge Plan Patient Disposition: Home Discharge comment: Patient will be discharged home after cleared by physical therapy. He is a [facility] patient and has pain medications at home. Discharge Med Rec/Prescriptions Prescriptions: Continue FOLIC ACID/VIT A/VIT B1/VIT (#MULTIVITAMIN) 1 tab PO QDAY Qty: 0 RF: 0 Ca-D3-mag [id number]-jaun-bor [Calcium 600-D3 Plus] 600 mg calcium- 800 unit-50 mg Tablet 1 tab PO BID Qty: 0 RF: 0 melatonin 5 MG tablet 5 mg PO HS Qty: 0 RF: 0 simvastatin 40 MG tablet 40 mg PO QPM Qty: 0 RF: 0 fenofibrate 160 MG tablet 160 mg PO QDAY Qty: 0 RF: 0 trazodone 50 mg tablet 50 mg PO DAILY 90 Days Qty: 90 RF: 0 alendronate 70 mg tablet 70 mg PO QWEEK 90 Days Qty: 12 RF: 0 multivitamin Tablet 1 tab PO DAILY RF: 0 aspirin 81 mg Tablet,Delayed Release (Dr/Ec) 81 mg PO DAILY RF: 0 varicella-zoster [id number] (PF) [Shingrix (PF)] 50 MCG/0.5 ML suspension for reconstitution 1 dose IM Q2MO RF: 0 Follow up/Referrals: Fidelia Castro MD [Primary Care Provider] - Provider Discharge Instructions Diet: Diet as Tolerated Activity: Move of left knee as much as possible. Cold/Heat Therapy: Lenny to left knee as needed. Skin/Wound/Dressing Care Report to your healthcare provider any signs of infection, such as:: chills, fever, night sweats, increased pain, unusual drainage and unusual redness Dressing: Keep Aquacel dressing in place until postop visit. Visit Report/Discharge Packet Instructions: DI for Knee Replacement, Oxycodone, Hydroxyzine Discharge Data Primary Care Provider: Fidelia Castro Attending Provider: Martín Noble Admit Date/Time: 06/21/18 06:13 Quality VTE Deep Vein Thrombosis/Pulmonary Embolism Present on Admission: No
--- NOTE | 2018-06-24 10:17 | P.DS_ITS ---
History of Present Illness Date Patient Seen: 06/24/18 Time Patient Seen: 10:12 Chief complaint: total knee arthroplasty [id number] Narrative: Hospital day 4, postop day 3 following left total knee arthroplasty by Dr. Noble. Patient has progressed with physical therapy. Still having noticeable pain to the left knee. Has been taking ibuprofen 600 mg and oxycodone 5 mg for pain. Patient is experiencing some worrying and anxiety regarding his healing. He does have history of prostate cancer with radical prostatectomy and is on hormone therapy for testosterone. Between his pain and increased sleep this is causing some emotional upset but he is improving. Patient is desiring to go home today. He does have physical therapy at [facility] starting next week. Has been able to void. Discharge Providers Date of admission: 06/21/18 06:13 Primary care physician: Fidelia Castro MD Consults: 06/21/18 06:30 Consult to Anesthesiology Routine Comment: Consulting Provider: Anesthesiologist Reason for consultation: Regional block for post operative pain control 06/22/18 11:13 Consult to Physical Therapy Evaluate & Treat Comment: Physician Instructions: Evaluate and Treat Discharge provider: Dwayne Schwartz PA-C Discharge Date: 06/24/18 Summary Discharge Diagnosis: Status post left total knee arthroplasty Hospital Course: Patient brought to hospital [facility] for above-noted surgery. Remained stable postoperatively. Progressed slowly with physical therapy and pain control. Ready for discharge home on postop day 3. Status at Discharge Cognitive/behavioral status at discharge: Alert in no acute distress. Functional status at discharge: uses cane/walker Overall status at discharge: patient is progressing back to baseline Time Spent with Patient Less than 30 minutes Exam Vital Signs (past 8 hours): - 06/24/18 05:15 06/24/18 07:45 Temperature 98.5 F 97.7 F Pulse Rate 86 85 Respiratory Rate 18 16 Blood Pressure 151/54 H 152/62 H Pulse Oximetry 95 96 Oxygen Delivery Method Room Air Oxygen Flow Rate 0 Narrative Exam Narrative: Left leg Aquacel dressing to left knee is dry without drainage or inflammation. Mild swelling of the knee and lower leg. Calf is nontender. Good pulses distally. Patient is able to fire his quad. Discharge Plan Discharge Plan Patient Disposition: Home Discharge comment: Patient will be discharged home after cleared by physical therapy. He is a [facility] patient and has pain medications at home. Discharge Med Rec/Prescriptions Prescriptions: Continue FOLIC ACID/VIT A/VIT B1/VIT (#MULTIVITAMIN) 1 tab PO QDAY Qty: 0 RF: 0 Ca-D3-mag cn-dotd-dwy-jaun-bor [Calcium 600-D3 Plus] 600 mg calcium- 800 unit- 50 mg Tablet 1 tab PO BID Qty: 0 RF: 0 melatonin 5 MG tablet 5 mg PO HS Qty: 0 RF: 0 simvastatin 40 MG tablet 40 mg PO QPM Qty: 0 RF: 0 fenofibrate 160 MG tablet 160 mg PO QDAY Qty: 0 RF: 0 trazodone 50 mg tablet 50 mg PO DAILY 90 Days Qty: 90 RF: 0 alendronate 70 mg tablet 70 mg PO QWEEK 90 Days Qty: 12 RF: 0 multivitamin Tablet 1 tab PO DAILY RF: 0 aspirin 81 mg Tablet,Delayed Release (Dr/Ec) 81 mg PO DAILY RF: 0 varicella-zoster [id number] (PF) [Shingrix (PF)] 50 MCG/0.5 ML suspension for reconstitution 1 dose IM Q2MO RF: 0 Follow up/Referrals: Fidelia Castro MD [Primary Care Provider] - Provider Discharge Instructions Diet: Diet as Tolerated Activity: Move of left knee as much as possible. Cold/Heat Therapy: Lenny to left knee as needed. Skin/Wound/Dressing Care Report to your healthcare provider any signs of infection, such as:: chills, fever, night sweats, increased pain, unusual drainage and unusual redness Dressing: Keep Aquacel dressing in place until postop visit. Visit Report/Discharge Packet Instructions: DI for Knee Replacement, Oxycodone, Hydroxyzine Discharge Data Primary Care Provider: Fidelia Castro Attending Provider: Martín Noble Admit Date/Time: 06/21/18 06:13 Quality VTE Deep Vein Thrombosis/Pulmonary Embolism Present on Admission: No
--- NOTE | 2018-06-24 10:30 | PT.IPTN ---
Current Diagnoses Unspecified contact dermatitis, unspecified cause (06/21/18) Bilateral primary osteoarthritis of knee (06/21/18) Presence of unspecified artificial knee joint (06/21/18) Surgery Performed Operation Date: 06/21/18 07:45 Actual Procedures p Total Knee Arthroplasty(Right) - Martín Noble MD Physical Therapy Treatment Note M2 PT-IP Current Condition Start: 06/22/18 14:21 Freq: NEEDED Status: Active Protocol: Document 06/22/18 13:30 AB (Rec: 06/22/18 16:54 AB [email or web address]) Physical Therapy Current Condition Current Condition Evaluation Date 06/22/18 Treatment Diagnosis s/p R TKA; difficulty in walking Onset Date 06/21/18 Weight Bearing Status Weight Bearing Status Weight Bear as Tolerated M3 PT-IP Subjective Start: 06/22/18 14:21 Freq: NEEDED Status: Active Protocol: Document 06/24/18 10:30 GGD (Rec: 06/24/18 12:14 GGD [id number]) Subjective Physical Therapy Visit Type Type Treatment Note Visit Start Time 10:05 Visit Stop Time 10:30 Total Visit Minutes 25 Number of WELL LOGGING MUD ANALYSIS CAPTAIN Visits 3 Physical Therapy Visit Comments Patient Comments Pt states she feeling better. Therapy Pain Assessment Pain When Pain Assessed At Rest Pain Present Pain Present Pain Reported Location Right Knee Intensity 1 Scale Used Numeric (1 - 10) M4 PT-IP Mobility and Gait Start: 06/22/18 14:21 Freq: NEEDED Status: Active Protocol: Document 06/24/18 10:30 GGD (Rec: 06/24/18 12:14 GGD [id number]) PT-Transfer Assessment Sit to and From Stand Sit to and from Stand Contact Guard Assistance 1 Person Assistance Use of Upper Extremities Equipment Transfer Assistive Device Gait Belt Front Wheeled Walker Orthotic/Prosthetic Devices or Brace: No Transfers Transfer Destination Bed Bedside Commode Transfer Ability Level of Assist Minimal Assistance 1 Person Assistance Use of Upper Extremities Gait Assessment Gait Gait Assistance Required: Contact Guard Assist 1 Person Assist Distance (Feet) 30 Able to Maintain Weight Bearing Status Yes During Gait Assistive Devices Assistive Device Gait Belt Front Wheeled Walker Orthotic/Prosthetic Devices or Brace: No Gait Deviations General Gait Pattern Antalgic Decreased Stride Length Decreased Feet Clearance Step-to Gait Factors Limiting Gait Function Factors Limiting Gait Function Decreased Activity Tolerance Decreased Strength Limited Range of Motion Pain Poor Balance Poor Safety Awareness Comments Gait Comments Pt need cues for gait pattern and FWW management. M5 PT-IP Objective Assessments Start: 06/22/18 14:21 Freq: NEEDED Status: Active Protocol: Document 06/22/18 13:30 AB (Rec: 06/22/18 16:54 AB [email or web address]) Orientation Orientation/Cognition Level of Alertness Alert Orientation Name Place Situation Language Function Ability Hard of Hearing Safety Awareness Decreased Safety Awareness Gross Range of Motion Lower Extremity ROM Assessment Right Impaired Strength Lower Extremity Strength Assessment Bilaterally Impaired Comments Strength Comments LLE: 4-/5 RLE 3-/5 Sensation Assessment Sensation Gross Sensation WNL M6 PT-IP Treatment Start: 06/22/18 14:21 Freq: NEEDED Status: Active Protocol: Document 06/24/18 10:30 GGD (Rec: 06/24/18 12:14 GGD [id number]) Physical Therapy Treatment Exercises Exercises Ankle Pumps Quad Sets Heel Slides Seated Knee Flexion/Extension M7 PT-IP Assessment and Plan Start: 06/22/18 14:21 Freq: NEEDED Status: Active Protocol: Document 06/24/18 10:30 GGD (Rec: 06/24/18 12:14 GGD [id number]) PT Summary Assessment and Plan Summary Assessment Summary Pt able to progress gait. She has low tolerance to weight bearing and decrease foot clearance and step length. She would benefit from SNF rehab before return to home for improved mobility and gait. Frequency of Treatment Frequency Of Treatment Twice a Day Treatment Plan Other Recommendations and Next Treatment ambulation, LE strengthening Focus Recommendations To Nursing Amount of Assist Needed 1 Person Assist Discharge Recommendations PT Discharge Recommendations SNF Rehab
[2018-06-24] MEDS: OXYCODONE IR 5 MG TABLET PO (13:05)
[2018-06-24] MEDS: ACETAMINOPHEN 325 MG TABLET 650 MG PO (13:05)
--- NOTE | 2018-06-24 14:45 | PT.IPTN ---
Current Diagnoses Unspecified contact dermatitis, unspecified cause (06/21/18) Bilateral primary osteoarthritis of knee (06/21/18) Presence of unspecified artificial knee joint (06/21/18) Surgery Performed Operation Date: 06/21/18 07:45 Actual Procedures p Total Knee Arthroplasty(Right) - Martín Noble MD Physical Therapy Treatment Note M2 PT-IP Current Condition Start: 06/22/18 14:21 Freq: NEEDED Status: Active Protocol: Document 06/22/18 13:30 AB (Rec: 06/22/18 16:54 AB [email or web address]) Physical Therapy Current Condition Current Condition Evaluation Date 06/22/18 Treatment Diagnosis s/p R TKA; difficulty in walking Onset Date 06/21/18 Weight Bearing Status Weight Bearing Status Weight Bear as Tolerated M3 PT-IP Subjective Start: 06/22/18 14:21 Freq: NEEDED Status: Active Protocol: Document 06/24/18 14:46 GGD (Rec: 06/24/18 14:54 GGD [email or web address]) Subjective Physical Therapy Visit Type Type Treatment Note Visit Start Time 14:20 Visit Stop Time 14:45 Total Visit Minutes 25 Number of [place] AUDITOR Visits 4 Physical Therapy Visit Comments Patient Comments Pt states she taking less pain meds. Therapy Pain Assessment Pain When Pain Assessed At Rest Pain Present Pain Present Pain Reported Location Right Knee Intensity 3 Scale Used Numeric (1 - 10) M4 PT-IP Mobility and Gait Start: 06/22/18 14:21 Freq: NEEDED Status: Active Protocol: Document 06/24/18 14:46 GGD (Rec: 06/24/18 14:54 GGD [email or web address]) PT-Bed Mobility Assessment Supine to Sit Supine to Sit Contact Guard Assistance Sit to Supine Sit to Supine Minimal Assistance Scooting Scooting to Edge of Bed Standby Assistance Scooting Up and Down in Bed Standby Assistance PT-Transfer Assessment Sit to and From Stand Sit to and from Stand Contact Guard Assistance 1 Person Assistance Use of Upper Extremities Equipment Transfer Assistive Device Gait Belt Front Wheeled Walker Orthotic/Prosthetic Devices or Brace: No Transfers Transfer Destination Bed Toilet Transfer Ability Level of Assist Contact Guard Assistance Use of Upper Extremities Gait Assessment Gait Gait Assistance Required: Contact Guard Assist 1 Person Assist Distance (Feet) 50 Able to Maintain Weight Bearing Status Yes During Gait Assistive Devices Assistive Device Gait Belt Front Wheeled Walker Orthotic/Prosthetic Devices or Brace: No Gait Deviations General Gait Pattern Antalgic Decreased Stride Length Decreased Feet Clearance Step-to Gait Factors Limiting Gait Function Factors Limiting Gait Function Decreased Activity Tolerance Decreased Strength Limited Range of Motion Pain Poor Balance Poor Safety Awareness Comments Gait Comments Pt need cues for gait pattern. M5 PT-IP Objective Assessments Start: 06/22/18 14:21 Freq: NEEDED Status: Active Protocol: Document 06/22/18 13:30 AB (Rec: 06/22/18 16:54 AB [email or web address]) Orientation Orientation/Cognition Level of Alertness Alert Orientation Name Place Situation Language Function Ability Hard of Hearing Safety Awareness Decreased Safety Awareness Gross Range of Motion Lower Extremity ROM Assessment Right Impaired Strength Lower Extremity Strength Assessment Bilaterally Impaired Comments Strength Comments LLE: 4-/5 RLE 3-/5 Sensation Assessment Sensation Gross Sensation WNL M6 PT-IP Treatment Start: 06/22/18 14:21 Freq: NEEDED Status: Active Protocol: Document 06/24/18 14:46 GGD (Rec: 06/24/18 14:54 GGD [email or web address]) Physical Therapy Treatment Exercises Exercises Ankle Pumps Quad Sets Heel Slides Seated Knee Flexion/Extension M7 PT-IP Assessment and Plan Start: 06/22/18 14:21 Freq: NEEDED Status: Active Protocol: Document 06/24/18 14:46 GGD (Rec: 06/24/18 14:54 GGD [email or web address]) PT Summary Assessment and Plan Summary Assessment Summary Pt improved with gait pattern with flat foot. She did need cues to stay within FWW. SHe need assist with right LE for bed mobility. Frequency of Treatment Frequency Of Treatment Twice a Day Treatment Plan Other Recommendations and Next Treatment ambulation, LE strengthening Focus Recommendations To Nursing Amount of Assist Needed 1 Person Assist Discharge Recommendations PT Discharge Recommendations SNF Rehab
[2018-06-24] MEDS: HYDROCORTISONE 1% CREAM 28 GM 1 APPLIC TOP (16:50)
[2018-06-24] MEDS: SIMVASTATIN 40 MG TABLET PO (19:07)
[2018-06-25] MEDS: OXYCODONE IR 10 MG TABLET PO ×4 (00:18→13:30)
[2018-06-25] MEDS: hydrOXYzine pamoate 25 MG CAPSULE PO (00:19)
[2018-06-25 05:00] VITALS: BP 148/65; PULSE 74; RESP 18; TEMP 36.7; O2SAT 95
[2018-06-25 07:40] VITALS: BP 145/66; PULSE 76; RESP 18; TEMP 36.8; O2SAT 97
[2018-06-25] MEDS: FENOFIBRATE 160 MG TABLET PO (08:39)
[2018-06-25] MEDS: SODIUM CHLORIDE 0.9% FLUSH 10 ML IV (08:39)
[2018-06-25] MEDS: MELOXICAM 7.5 MG TABLET 15 MG PO (08:39)
[2018-06-25] MEDS: ASPIRIN EC 81 MG TABLET PO (08:39)
--- NOTE | 2018-06-25 10:15 | PC.NURSE ---
Talya states her pain is Much lower level than before. Able to get up and perform with PT, and pre-med by taking Oxycodone 10 mg tab. Declined to take her morning bowel meds as she had blow-out diarrhea yesterday AM. VSS. RLE sl. edema compared to Elissa Arnold drsg. clean/dry, few very tiny spots old blood midline. CMS intact RLE. Anticipate D/C to SNF this PM.
--- NOTE | 2018-06-25 10:25 | PM.DS.1 ---
History of Present Illness Date Patient Seen: 06/25/18 Time Patient Seen: 10:25 Chief complaint: total knee arthroplasty [id number] Narrative: Talya is 72-year-old female postop day 4 status post left total knee arthroplasty with Dr. Noble. Patient is doing well. She has had a routine postoperative course. Her pain is controlled. She has been up with physical therapy. She is scheduled to discharged to snf today. She has tolerated a p.o. diet. She was noted to have a lumbar dermatitis and may use cortisone cream as needed to this. She states it does not hurt and does not itch. Discharge Providers Date of admission: 06/21/18 06:13 Primary care physician: Fidelia Castro MD Consults: 06/21/18 06:30 Consult to Anesthesiology Routine Comment: Consulting Provider: Anesthesiologist Reason for consultation: Regional block for post operative pain control 06/22/18 11:13 Consult to Physical Therapy Evaluate & Treat Comment: Physician Instructions: Evaluate and Treat Discharge provider: Vania Alberto MD Discharge Date: 06/25/18 Summary Discharge Diagnosis: Left knee arthritis status post total knee arthroplasty Hospital Course: Patient was admitted to the floor postoperatively from her left total knee arthroplasty. Patient had a routine postoperative course including physical therapy occupational therapy. The patient tolerated p.o. diet was cleared for discharge to snf facility on the date of discharge. She has DVT prophylaxis with 81 mg of aspirin b.i.d.. Pain has been controlled on oxycodone and Vistaril. Vital signs are stable. Status at Discharge Cognitive/behavioral status at discharge: Stable Functional status at discharge: uses cane/walker Overall status at discharge: patient is progressing back to baseline Time Spent with Patient Less than 30 minutes Exam Vital Signs (past 8 hours): - 06/25/18 05:00 06/25/18 07:40 Temperature 98.1 F 98.2 F Pulse Rate 74 76 Respiratory Rate 18 18 Blood Pressure 148/65 H 145/66 H Pulse Oximetry 95 97 Oxygen Delivery Method Room Air Oxygen Flow Rate 0 Narrative Exam Narrative: Patient is alert and oriented female in no acute distress she is resting in the bedside chair. Lungs are clear to auscultation. Heart rate regular rhythm. Abdomen is soft nontender. Back lumbar skin is evaluated it seems to be a faint dermatitis in this area no raised lesions or erythema. No sores. Left knee with Aquacel dressing intact. Scant drainage. The patient demonstrates active knee flexion extension. Patient demonstrates dorsiflexion plantar flexion of the ankle. Sensation grossly intact to light touch. Calf is soft and nontender. Discharge Plan Discharge Plan Patient Disposition: SNF Transfer to: [facility] Discharge comment: Patient will be discharged after cleared by physical therapy. I certify the postop hospital snf care is medically necessary on a continuing basis for any conditions for which he/ she received care during this hospitalization.: Yes The receiving facility has agreed to accept transfer and provide medical treatment.: Yes Discharge Med Rec/Prescriptions Prescriptions: New aspirin 81 mg Tablet,Delayed Release (Dr/Ec) 81 mg PO BID Qty: 60 RF: 0 docusate sodium 100 mg Capsule 100 mg PO BID Qty: 30 RF: 1 oxycodone 5 mg Tablet 5 mg PO Q4HR PRN (Reason: Pain, Moderate (4-6)) Qty: 50 RF: 0 hydroxyzine pamoate 25 mg Capsule 25 mg PO Q4HR PRN (Reason: Nausea) Qty: 20 RF: 1 Continue FOLIC ACID/VIT A/VIT B1/VIT (#MULTIVITAMIN) 1 tab PO QDAY Qty: 0 RF: 0 Ca-D3-mag [id number]-pih-jaun-bor [Calcium 600-D3 Plus] 600 mg calcium- 800 unit-50 mg Tablet 1 tab PO BID Qty: 0 RF: 0 melatonin 5 MG tablet 5 mg PO HS Qty: 0 RF: 0 simvastatin 40 MG tablet 40 mg PO QPM Qty: 0 RF: 0 fenofibrate 160 MG tablet 160 mg PO QDAY Qty: 0 RF: 0 trazodone 50 mg tablet 50 mg PO DAILY 90 Days Qty: 90 RF: 0 alendronate 70 mg tablet 70 mg PO QWEEK 90 Days Qty: 12 RF: 0 multivitamin Tablet 1 tab PO DAILY RF: 0 varicella-zoster gE-AS01B (PF) [Shingrix (PF)] 50 MCG/0.5 ML suspension for reconstitution 1 dose IM Q2MO RF: 0 Discontinued aspirin 81 mg Tablet,Delayed Release (Dr/Ec) 81 mg PO DAILY RF: 0 Follow up/Referrals: Martín Noble MD [Physician] - (Follow-up [facility] as scheduled for postoperative appointment) Fidelia Castro MD [Primary Care Provider] - Provider Discharge Instructions Diet: Diet as Tolerated Food texture: Regular Activity: Move of left knee as much as possible. Weightbear as tolerated, assistive devices as needed Cold/Heat Therapy: Ice to left knee as needed. Skin/Wound/Dressing Care Report to your healthcare provider any signs of infection, such as:: chills, fever, night sweats, increased pain, unusual drainage and unusual redness Dressing: Keep Aquacel dressing in place until postop visit. Special Rehabilitation Services Reason for rehabilitation: Post-operative therapy Rehab type: Physical therapy Restrictions to mobility: Weight bear as tolerated. Moved knee as much as possible Visit Report/Discharge Packet Instructions: DI for Knee Replacement, Oxycodone, Hydroxyzine Visit Report Forms: Stroke Signs & Symptoms Discharge Data Primary Care Provider: Fidelia Castro Attending Provider: Martín Noble Admit Date/Time: 06/21/18 06:13 Quality VTE Deep Vein Thrombosis/Pulmonary Embolism Present on Admission: No
[2018-06-25] MEDS: HYDROCORTISONE 1% CREAM 28 GM 1 APPLIC TOP (10:29)
--- NOTE | 2018-06-25 10:29 | P.DS_ITS ---
History of Present Illness Date Patient Seen: 06/25/18 Time Patient Seen: 10:25 Chief complaint: total knee arthroplasty [id number] Narrative: Talya is 72-year-old female postop day 4 status post left total knee arthroplasty with Dr. Noble. Patient is doing well. She has had a routine postoperative course. Her pain is controlled. She has been up with physical therapy. She is scheduled to discharged to intermediate today. She has tolerated a p.o. diet. She was noted to have a lumbar dermatitis and may use cortisone cream as needed to this. She states it does not hurt and does not itch. Discharge Providers Date of admission: 06/21/18 06:13 Primary care physician: Fidelia Castro MD Consults: 06/21/18 06:30 Consult to Anesthesiology Routine Comment: Consulting Provider: Anesthesiologist Reason for consultation: Regional block for post operative pain control 06/22/18 11:13 Consult to Physical Therapy Evaluate & Treat Comment: Physician Instructions: Evaluate and Treat Discharge provider: Vania Alberto MD Discharge Date: 06/25/18 Summary Discharge Diagnosis: Left knee arthritis status post total knee arthroplasty Hospital Course: Patient was admitted to the floor postoperatively from her left total knee arthroplasty. Patient had a routine postoperative course including physical therapy occupational therapy. The patient tolerated p.o. diet was cleared for discharge to intermediate facility on the date of discharge. She has DVT prophylaxis with 81 mg of aspirin b.i.d.. Pain has been controlled on oxycodone and Vistaril. Vital signs are stable. Status at Discharge Cognitive/behavioral status at discharge: Stable Functional status at discharge: uses cane/walker Overall status at discharge: patient is progressing back to baseline Time Spent with Patient Less than 30 minutes Exam Vital Signs (past 8 hours): - 06/25/18 05:00 06/25/18 07:40 Temperature 98.1 F 98.2 F Pulse Rate 74 76 Respiratory Rate 18 18 Blood Pressure 148/65 H 145/66 H Pulse Oximetry 95 97 Oxygen Delivery Method Room Air Oxygen Flow Rate 0 Narrative Exam Narrative: Patient is alert and oriented female in no acute distress she is resting in the bedside chair. Lungs are clear to auscultation. Heart rate regular rhythm. Abdomen is soft nontender. Back lumbar skin is evaluated it seems to be a faint dermatitis in this area no raised lesions or erythema. No sores. Left knee with Aquacel dressing intact. Scant drainage. The patient demonstrates active knee flexion extension. Patient demonstrates dorsiflexion plantar flexion of the ankle. Sensation grossly intact to light touch. Calf is soft and nontender. Discharge Plan Discharge Plan Patient Disposition: SNF Transfer to: [facility] Discharge comment: Patient will be discharged after cleared by physical therapy. I certify the postop hospital intermediate care is medically necessary on a continuing basis for any conditions for which he/ she received care during this hospitalization.: Yes The receiving facility has agreed to accept transfer and provide medical treatment.: Yes Discharge Med Rec/Prescriptions Prescriptions: New aspirin 81 mg Tablet,Delayed Release (Dr/Ec) 81 mg PO BID Qty: 60 RF: 0 docusate sodium 100 mg Capsule 100 mg PO BID Qty: 30 RF: 1 oxycodone 5 mg Tablet 5 mg PO Q4HR PRN (Reason: Pain, Moderate (4-6)) Qty: 50 RF: 0 hydroxyzine pamoate 25 mg Capsule 25 mg PO Q4HR PRN (Reason: Nausea) Qty: 20 RF: 1 Continue FOLIC ACID/VIT A/VIT B1/VIT (#MULTIVITAMIN) 1 tab PO QDAY Qty: 0 RF: 0 Ca-D3-mag [id number]-foq-jaun-bor [Calcium 600-D3 Plus] 600 mg calcium- 800 unit- 50 mg Tablet 1 tab PO BID Qty: 0 RF: 0 melatonin 5 MG tablet 5 mg PO HS Qty: 0 RF: 0 simvastatin 40 MG tablet 40 mg PO QPM Qty: 0 RF: 0 fenofibrate 160 MG tablet 160 mg PO QDAY Qty: 0 RF: 0 trazodone 50 mg tablet 50 mg PO DAILY 90 Days Qty: 90 RF: 0 alendronate 70 mg tablet 70 mg PO QWEEK 90 Days Qty: 12 RF: 0 multivitamin Tablet 1 tab PO DAILY RF: 0 varicella-zoster gE-AS01B (PF) [Shingrix (PF)] 50 MCG/0.5 ML suspension for reconstitution 1 dose IM Q2MO RF: 0 Discontinued aspirin 81 mg Tablet,Delayed Release (Dr/Ec) 81 mg PO DAILY RF: 0 Follow up/Referrals: Martín Noble MD [Physician] - (Follow-up [facility] as scheduled for postoperative appointment) Fidelia Castro MD [Primary Care Provider] - Provider Discharge Instructions Diet: Diet as Tolerated Food texture: Regular Activity: Move of left knee as much as possible. Weightbear as tolerated, assistive devices as needed Cold/Heat Therapy: Ice to left knee as needed. Skin/Wound/Dressing Care Report to your healthcare provider any signs of infection, such as:: chills, fever, night sweats, increased pain, unusual drainage and unusual redness Dressing: Keep Aquacel dressing in place until postop visit. Special Rehabilitation Services Reason for rehabilitation: Post-operative therapy Rehab type: Physical therapy Restrictions to mobility: Weight bear as tolerated. Moved knee as much as possible Visit Report/Discharge Packet Instructions: DI for Knee Replacement, Oxycodone, Hydroxyzine Visit Report Forms: Stroke Signs & Symptoms Discharge Data Primary Care Provider: Fidelia Castro Attending Provider: Martín Noble Admit Date/Time: 06/21/18 06:13 Quality VTE Deep Vein Thrombosis/Pulmonary Embolism Present on Admission: No
--- NOTE | 2018-06-25 10:52 | PT.IPTN ---
Current Diagnoses Unspecified contact dermatitis, unspecified cause (06/21/18) Bilateral primary osteoarthritis of knee (06/21/18) Presence of unspecified artificial knee joint (06/21/18) Surgery Performed Operation Date: 06/21/18 07:45 Actual Procedures p Total Knee Arthroplasty(Right) - Martín Noble MD Physical Therapy Treatment Note M2 PT-IP Current Condition Start: 06/22/18 14:21 Freq: NEEDED Status: Active Protocol: Document 06/22/18 13:30 AB (Rec: 06/22/18 16:54 AB [email or web address]) Physical Therapy Current Condition Current Condition Evaluation Date 06/22/18 Treatment Diagnosis s/p R TKA; difficulty in walking Onset Date 06/21/18 Weight Bearing Status Weight Bearing Status Weight Bear as Tolerated M3 PT-IP Subjective Start: 06/22/18 14:21 Freq: NEEDED Status: Active Protocol: Document 06/25/18 10:15 CLB (Rec: 06/25/18 10:52 CLB [id number]) Subjective Physical Therapy Visit Type Type Treatment Note Visit Start Time 10:15 Visit Stop Time 10:45 Total Visit Minutes 30 Number of CONTROL TOWER RADIO OPERATOR Visits 5 Physical Therapy Visit Comments Patient Comments Pt agreeable to PT. Therapy Pain Assessment Pain When Pain Assessed At Rest Pain Present Pain Present Pain Reported Location Right Knee Intensity 4 Scale Used Numeric (1 - 10) M4 PT-IP Mobility and Gait Start: 06/22/18 14:21 Freq: NEEDED Status: Active Protocol: Document 06/25/18 10:15 CLB (Rec: 06/25/18 10:52 CLB [id number]) PT-Transfer Assessment Sit to and From Stand Sit to and from Stand Contact Guard Assistance 1 Person Assistance Use of Upper Extremities Equipment Transfer Assistive Device Gait Belt Front Wheeled Walker Orthotic/Prosthetic Devices or Brace: No Transfers Transfer Destination Chair Transfer Ability Level of Assist Contact Guard Assistance Use of Upper Extremities Gait Assessment Gait Gait Assistance Required: Contact Guard Assist 1 Person Assist Distance (Feet) 80 Able to Maintain Weight Bearing Status Yes During Gait Assistive Devices Assistive Device Gait Belt Front Wheeled Walker Orthotic/Prosthetic Devices or Brace: No Gait Deviations General Gait Pattern Antalgic Decreased Stride Length Decreased Feet Clearance Step-to Gait Factors Limiting Gait Function Factors Limiting Gait Function Decreased Activity Tolerance Decreased Strength Limited Range of Motion Pain Poor Balance Poor Safety Awareness Comments Gait Comments Pt need cues for gait pattern. M5 PT-IP Objective Assessments Start: 06/22/18 14:21 Freq: NEEDED Status: Active Protocol: Document 06/22/18 13:30 AB (Rec: 06/22/18 16:54 AB [email or web address]) Orientation Orientation/Cognition Level of Alertness Alert Orientation Name Place Situation Language Function Ability Hard of Hearing Safety Awareness Decreased Safety Awareness Gross Range of Motion Lower Extremity ROM Assessment Right Impaired Strength Lower Extremity Strength Assessment Bilaterally Impaired Comments Strength Comments LLE: 4-/5 RLE 3-/5 Sensation Assessment Sensation Gross Sensation WNL M6 PT-IP Treatment Start: 06/22/18 14:21 Freq: NEEDED Status: Active Protocol: Document 06/25/18 10:15 CLB (Rec: 06/25/18 10:52 CLB [id number]) Physical Therapy Treatment Exercises Exercises Ankle Pumps Quad Sets Heel Slides Straight Leg Raises Short Arc Quads Education Education Provided Weight Bearing Status Safety M7 PT-IP Assessment and Plan Start: 06/22/18 14:21 Freq: NEEDED Status: Active Protocol: Document 06/25/18 10:15 CLB (Rec: 06/25/18 10:52 CLB [email or web address]) PT Summary Assessment and Plan Summary Assessment Summary Pt continues to improve with gait pattern remembering to stay inside walker and improving with safety awareness during sit<>stand. Frequency of Treatment Frequency Of Treatment Twice a Day Treatment Plan Other Recommendations and Next Treatment ambulation, LE strengthening Focus Recommendations To Nursing Amount of Assist Needed 1 Person Assist Discharge Recommendations PT Discharge Recommendations SNF Rehab
--- NOTE | 2018-06-25 11:18 | CM.DPC ---
DCP/SNF Patient medically stable to discharge to SNF today. Met with patient: patient remains agreeable to SNF/[facility]. [facility] and will [facility] picker at 1400. RN and patient notified. [facility] and discharge summary faxed to [facility]. Plan: Patient to discharge to [facility] today at 1400.
[2018-06-25 11:30] VITALS: BP 117/59; PULSE 71; RESP 18; TEMP 36.6; O2SAT 94
--- NOTE | 2018-06-25 14:37 | PC.NURSE ---
Talya was disch. in stable condition via wheelchair to care of [facility] staff at 1410. All paperwork given to [facility] staff. Report called prior to Nereyda STANLEY.
== END 2018-06-25 14:10 | DRG 470 ==
LOC: AC 06-25 10:24 → OR 06-26 06:38 → AC 06-26 06:42
PROVIDERS: Admitting Provider Orthopaedic Surgery; Family Provider Family Medicine; PCP Family Medicine; Visit Provider Orthopaedic Surgery
PROC: 0SRC0JZ Replacement of Right Knee Joint with Synthetic Substitute, Open Approach (ICD-10-PCS; CPT 27447; principal; 2018-06-21 07:45)
DX: M17.11 Unilateral primary osteoarthritis, right knee (principal); R21 Rash and other nonspecific skin eruption; I10 Essential (primary) hypertension; E78.5 Hyperlipidemia, unspecified; N18.3 Chronic kidney disease, stage 3 (moderate)
CPT/HCPCS: 73560; 94762; 97110; 97116; 97162; 97530; C1776; C9290; J0690; J2250; J2704; J3010

== ENCOUNTER → 2018-06-28 08:33 | Outpatient (REF) | payer MEDICARE, SELFPAY ==
[2018-06-21 10:04] VITALS: BMI 27.3
[2018-06-28 09:24] LABS: Add Manual Diff / Slide Review NO; Eosinophils Percent Auto 5.4 % (2-4); Hematocrit 35.1 % (36-46); Hemoglobin 11.8 g/dL (12.0-16.0); Mean Corpuscular HGB Conc 33.7 % (30-36); Mean Corpuscular Hemoglobin 30.9 PG (26-34); Mean Corpuscular Volume 91.8 fL (80-100); Neutrophils Absolute Auto 3900 /uL (3000-5900); Neutrophils Percent Auto 69.6 % (50-75); Platelet Count 346 X10^3/uL (150-400); Red Blood Cell Count 3.82 X10^6/uL (4.0-5.2); Red Cell Distribution Width 14.7 % (11.6-14.8); White Blood Cell Count 5.7 X10^3/uL (4.5-11.0)
[2018-06-28 10:03] LABS: Alanine Aminotransferase 31 IU/L (9-52); Albumin 4.1 g/dL (3.5-5.0); Albumin Globulin Ratio 1.5 (1.0-2.8); Alkaline Phosphatase 57 U/L (38-126); Aspartate Aminotransferase 34 IU/L (14-36); Bilirubin Total 0.6 mg/dL (0.2-1.3); Blood Urea Nitrogen 21 mg/dL (7-17); Calcium 9.7 mg/dL (8.4-10.2); Carbon Dioxide 31 mmol/L (22-32); Chloride 99 mmol/L (98-107); Estimated Glomerular Filt Rate 54.7 mL/min (>60); Globulin 2.7 g/dL (1.7-4.1); Glucose 86 mg/dL (80-110); HEMOLYSIS < 15 (0-50); Potassium 4.3 mmol/L (3.4-5.1); Sodium 140 mmol/L (137-145); Total Protein 6.8 g/dL (6.3-8.2)
== END ==
LOC: LAB 08:33
PROVIDERS: Family Provider Family Medicine; PCP Family Medicine; Visit Provider Hospitalist
DX: Z96.659 Presence of unspecified artificial knee joint (principal)
CPT/HCPCS: 36415; 80053; 85025

== ENCOUNTER → 2019-04-11 21:13 | Emergency (ER) | payer MEDICARE, SELFPAY ==
[2018-06-21 10:04] VITALS: BMI 27.3
[2019-04-11 21:20] VITALS: BP 169/68; PULSE 94; RESP 18; TEMP 36.6; O2SAT 96
--- NOTE | 2019-04-11 21:23 | DI.RAD.S_ITS ---
PROCEDURE: XR HIP W PEL IF DONE LT 2V INDICATIONS: fall with pain and swelling TECHNIQUE: AP pelvis with lateral view(s) of the left hip(s). COMPARISON: None. FINDINGS: Bones: No fractures or dislocations. Pelvic ring appears intact. No suspicious bony lesions. Age-appropriate bony degenerative changes are seen. Soft tissues: The visualized bowel gas pattern is normal. No suspicious soft tissue calcifications. IMPRESSION: No acute bony abnormality is seen. If there is point tenderness (or other clinical suspicion for a fracture not seen on these images) then a dedicated CT could be considered for further evaluation, as clinically appropriate. Dictated by: Carroll Brennan M.D. on 04/11/2019 at 21:56 Approved by: Carroll Brennan M.D. on 04/11/2019 at 21:57
--- NOTE | 2019-04-11 21:55 | PC.NURSE ---
Mother stated in triage that her son,along with being fussy,had a blank stareon his face today also.
--- NOTE | 2019-04-11 22:11 | ED_ITS ---
HPI - Extremity Injury (Lower) General Chief Complaint: Extremity Injury, Lower Stated Complaint: lt hip pain s/p fall Time Seen by Provider: 04/11/19 21:32 Source: patient Mode of arrival: ambulatory Limitations: no limitations History of Present Illness HPI Narrative: Patient is a 73-year-old female who presents with left hip pain. She was at a restaurant [employer] today she for out that there was a step or she w as sitting and she fell down all landing mostly on her left hip. She does take aspirin 81 mg daily as a preventative measure she has a very large contusion. She was ambulatory immediately afterwards. But is still having quite a bit of pain. She has no numbness or tingling. She denies any head injury or neck pain. Related Data Home Medications Medication Instructions Recorded Confirmed Ca-D3-mag va-dicy-wml-jaun-bor 1 tab PO BID #0 02/19/11 06/12/18 [Calcium 600-D3 Plus] FOLIC ACID/VIT A/VIT B1/VIT 1 tab PO QDAY #0 02/19/11 06/12/18 (#MULTIVITAMIN) melatonin 5 mg PO HS #0 10/21/12 06/21/18 fenofibrate 160 mg PO QDAY #0 04/04/17 06/21/18 simvastatin 40 mg PO QPM #0 04/04/17 06/21/18 alendronate 70 mg tablet 70 mg PO QWEEK 90 Days #12 tab 01/04/18 06/21/18 trazodone 50 mg tablet 50 mg PO DAILY 90 Days #90 tab 01/04/18 06/12/18 multivitamin 1 tab PO DAILY 06/12/18 06/12/18 varicella-zoster [id number] (PF) 1 dose IM Q2MO 06/22/18 06/22/18 [Shingrix (PF)] aspirin 81 mg tablet,delayed 81 mg PO DAILY tab 01/03/19 release Previous Rx's Medication Instructions Recorded oxycodone-acetaminophen [Percocet] 1 tab PO Q6HR PRN #10 tab 04/11/19 Allergies Allergy/AdvReac Type Severity Reaction Status Date / Time No Known Drug Allergies Allergy Verified 04/11/19 21:43 Review of Systems Review of Systems Narrative: GENERAL: Denies chills,fever HEENT: Denies throat pain RESPIRATORY: Denies dyspnea, cough, wheezing CARDIOVASCULAR: Denies chest pain, palpitations GASTROINTESTINAL: Denies nausea, vomiting MUSCULOSKELETAL: See HPI SKIN: No rash, no laceration, no pruritus NEUROLOGIC: Denies weakness, dizziness, headache, numbness 8 point review of systems is negative except for those stated above and HPI [facility] Medical History Benign paroxysmal vertigo (Acute) Breast cancer (Resolved 2011) Cataracts, bilateral (Resolved 2011) Chicken pox (Resolved 1954) Chronic kidney disease (Acute) Concussion (Acute ~05/2017) Degenerative arthritis of right knee (Acute) Fracture (Resolved 1959) History of heavy periods (Resolved 1974) History of hysterectomy (Acute) Hyperlipidemia (Acute) Hypertension (Chronic 2007) Infection, Pseudomonas (Acute) Infertility (Resolved 1967) Insomnia (Acute) Kidney disease (Chronic 2009) Measles (Resolved 1954) Migraines (Chronic 1984) Osteoarthritis (Chronic 2011) Osteopenia (Chronic 2009) Ovarian cyst (Resolved 1967) Primary osteoarthritis of both knees (Acute) Stroke (Resolved Unknown) Surgical menopause (Acute) Vertigo (Chronic 2014) Surgical History Anesthesia complication (Resolved) H/O right knee surgery (Acute) History of cataract removal with insertion of prosthetic lens (Resolved 2014) History of cataract removal with insertion of prosthetic lens (Resolved 2014) History of colonoscopy (Acute) History of dacryocystorhinostomy (Resolved 2013) History of eye surgery (Resolved 1954) History of eye surgery (Acute) History of left oophorectomy (Acute) History of non-cataract eye surgery (Resolved 2015) History of non-cataract eye surgery (Resolved 2016) History of non-cataract eye surgery (Resolved 2016) History of non-cataract eye surgery (Resolved 2015) History of oophorectomy, unilateral (Resolved 1967) History of oophorectomy, unilateral (Resolved 2005) History of right oophorectomy (Acute) Status post arthroscopy (Resolved 2014) Status post breast biopsy (Resolved 1989) Status post hysterectomy (Resolved 1979) Status post partial mastectomy (Resolved 2011) Status post tubal ligation (Resolved 1974) Family History Brother Age: 83 Heart disease Mental health problem Primary progressive aphasia Brother Age: 69 DVT (deep venous thrombosis) Diabetes mellitus Back problem Joint problem Father Cancer Hodgkin's disease Grandfather Heart disease Heart attack Grandmother Stroke Grandfather Cancer Grandmother Stroke Breast cancer Mother Ovarian cancer Sister Brain aneurysm Sister No problems noted. 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 special mindy needs: No travel history: recent (December 2017) leisure activities: exercise, reading and other other: traveling seatbelt use: always helmet use: Yes water heater temp set < 120 deg: Yes working smoke detector in home: Yes fire extinguisher in home: No carbon monox detector in home: No firearms in home: Yes firearms unloaded and locked: Yes do you feel safe at home: Yes Smoking Status: Never smoker second hand exposure: No alcohol intake: never substance use type: does not use during the past year weight has: remained stable well-balanced diet: about half the time daily servings fruits/ve-4 caffeine: Yes eating out: 1-3 times/week Type(s) of exercise: walking frequency: daily duration: 15-30 minutes/day Family History Brother Age: 83 Heart disease Mental health problem Primary progressive aphasia Brother Age: 69 DVT (deep venous thrombosis) Diabetes mellitus Back problem Joint problem Father Cancer Hodgkin's disease Grandfather Heart disease Heart attack Grandmother Stroke Grandfather Cancer Grandmother Stroke Breast cancer Mother Ovarian cancer Sister Brain aneurysm Sister No problems noted. 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 special mindy needs: No travel history: recent (December 2017) leisure activities: exercise, reading and other other: traveling seatbelt use: always helmet use: Yes water heater temp set < 120 deg: Yes working smoke detector in home: Yes fire extinguisher in home: No carbon monox detector in home: No firearms in home: Yes firearms unloaded and locked: Yes do you feel safe at home: Yes Smoking Status: Never smoker second hand exposure: No alcohol intake: never substance use type: does not use during the past year weight has: remained stable well-balanced diet: about half the time daily servings fruits/ve-4 caffeine: Yes eating out: 1-3 times/week Type(s) of exercise: walking frequency: daily duration: 15-30 minutes/day Exam Initial Vital Signs Initial Vital Signs: Vital Signs Temperature 97.8 F 04/11/19 21:20 Pulse Rate 94 H 04/11/19 21:20 Respiratory Rate 18 04/11/19 21:20 Blood Pressure 169/68 H 04/11/19 21:20 Pulse Oximetry 96 04/11/19 21:20 GENERAL: Well-appearing, well-nourished and in no acute distress. HEENT: Head atraumatic,EOMI, pupils reactive, face symmetric CARDIOVASCULAR: Regular rate and rhythm without murmurs, rubs or gallops. RESPIRATORY: Breath sounds equal bilaterally, no wheezes rales or rhonchi. ABDOMEN: Soft, nontender. Normoactive bowel sounds all 4 quadrants. No guarding or rebound. EXTREMITIES: Normal range of motion, no clubbing or edema. Neurovascularly intact. Distal pedal pulses intact pelvis stable no pain with internal or external rotation NEUROLOGICAL: Alert and oriented x4.Normal gait and speech. Cranial nerves II through XII grossly intact. SKIN: Large left lateral thigh contusion Course Orders Ordered: ED Orders 04/11/19 21:23 XR hip w pel if done LT 2V Stat 04/11/19 23:10 Complete Blood Count AUTO DIFF Stat Comprehensive Metabolic Panel Stat Troponin I Stat 04/11/19 23:14 EKG-12 Lead Stat Sodium Chloride (Normal Saline 0.9%) 1,000 mls @ 1,000 mls/hr IV CONT MICHAEL Discontinued Medications Oxycodone/Acetaminophen (Endocet 5/325 Prepack) 1 bottle MISC SEEINSTR ONE Stop: 04/11/19 22:11 Last Admin: 04/11/19 22:38 Dose: 1 bottle Documented by: ELIZ Vital Signs Vital signs: Vital Signs - 8 hr 04/11/19 21:20 Temperature 97.8 F Pulse Rate 94 H Respiratory Rate 18 Blood Pressure 169/68 H Pulse Oximetry 96 MDM - Extremity Injury (Lower) Lab Data Attestation: I reviewed the patient's lab results. Result diagrams: 04/11/19 23:10 04/11/19 23:10 Labs: Lab Results 04/11/19 04/11/19 Range/Units 23:10 23:10 WBC 11.0 (4.5-11.0) X10^3/uL RBC 3.97 L (4.0-5.2) X10^6/uL Hgb 12.2 (12.0-16.0) g/dL Hct 35.9 L (36-46) % MCV 90.4 (80-100) fL MCH 30.8 (26-34) PG MCHC 34.1 (30-36) % RDW 15.3 H (11.6-14.8) % Plt Count 328 (150-400) X10^3/uL Neut % (Auto) 82.7 H (50-75) % Lymph % (Auto) 9.6 L (25-40) % [place] % (Auto) 6.8 (3-14) % Eos % (Auto) 0.5 L (2-4) % Baso % (Auto) 0.4 (0-2) % Neut # (Auto) 9100 H (1071-9518) /uL Lymph # (Auto) 1100 (6979-4976) /uL [place] # (Auto) 700 (0-900) /uL Eos # (Auto) 100 (0-450) /uL Baso # (Auto) 0 (0-100) /uL Sodium 138 (137-145) mmol/L Potassium 4.1 (3.4-5.1) mmol/L Chloride 103 (98-107) mmol/L Carbon Dioxide 27 (22-32) mmol/L BUN 36 H (7-17) mg/dL Creatinine 1.00 (0.52-1.04) mg/dL Estimated GFR 54.5 L (>60) mL/min BUN/Creatinine Ratio 36.0 H (6-22) Glucose 124 H (80-110) mg/dL Calcium 10.0 (8.4-10.2) mg/dL Total Bilirubin 0.3 (0.2-1.3) mg/dL AST 39 H (14-36) IU/L ALT 20 (9-52) IU/L Alkaline Phosphatase 91 (38-126) U/L Troponin I 0.023 (0.01-0.034) ng/mL Total Protein 6.6 (6.3-8.2) g/dL Albumin 4.2 (3.5-5.0) g/dL Globulin 2.4 (1.7-4.1) g/dL Albumin/Globulin Ratio 1.8 (1.0-2.8) Imaging Data left hip: Radiologist's impression: PROCEDURE: XR HIP W PEL IF DONE LT 2V INDICATIONS: fall with pain and swelling TECHNIQUE: AP pelvis with lateral view(s) of the left hip(s). COMPARISON: None. FINDINGS: Bones: No fractures or dislocations. Pelvic ring appears intact. No suspicious bony lesions. Age-appropriate bony degenerative changes are seen. Soft tissues: The visualized bowel gas pattern is normal. No suspicious soft tissue calcifications. IMPRESSION: No acute bony abnormality is seen. If there is point tenderness (or other clinical suspicion for a fracture not seen on these images) then a dedicated CT could be considered for further evaluation, as clinically appropriate. Dictated by: Carroll Brennan M.D. on 04/11/2019 at 21:56 MDM Narrative Medical decision making narrative: Patient was discharged. She made out to the car but immediately felt lightheaded like she was going to pass out. She did not pass out. There is a another note regarding that visit. Blood work noted in this note is actually for the next visit immediately following this visit. Discharge Plan Departure Clinical Impression: Contusion of left thigh Qualifiers: Encounter type: initial encounter Qualified Code(s): S70.12XA - Contusion of left thigh, initial encounter Instructions: DI for Contusion Activity Restrictions/Additional Instructions: *You have been diagnosed with large left hip contusion *What to do: Elevate, ice 20 minutes on and 20 minutes off. Use walker as needed. *Continue to take medications as directed Percocet 1 tablet every 6 hours only if needed for severe pain *Follow up with your primary care provider in 2-3 days *Return to ER if you should have increasing pain, numbness, tingling weakness or any new, worsening or concerning symptoms CONTROLLED SUBSTANCE DISCHARGE (Narcotoic/benzodiazepine/Flexeril/Phenergan) 1. You have been prescribed narcotic medications, it does have acetaminophen/Tylenol/paracetamol in it so do not take extra Tylenol or Tylenol containing products 2. Please understand that we cannot provide further refills of narcotics, benzodiazepines or controlled substances through the ED and her pain management will need to be through your provider. 3. While on these medications you cannot drive or operate heavy machinery. 4. You cannot sign legal documents or perform any duties such as this. 5. As long as you're taking opiate pain medications he should also be taking a stool softener such as Colace, Dulcolax, MiraLAX or prune juice, to help avoid constipation. Prescriptions: New oxycodone-acetaminophen [Percocet] 5-325 mg tablet 1 tab PO Q6HR PRN (Reason: pain) Qty: 10 RF: 0 No Action aspirin 81 mg tablet,delayed release (DR/EC) 81 mg PO DAILY RF: 0 FOLIC ACID/VIT A/VIT B1/VIT (#MULTIVITAMIN) 1 tab PO QDAY Qty: 0 RF: 0 Ca-D3-mag gq-lxxm-vnm-jaun-bor [Calcium 600-D3 Plus] 600 mg calcium- 800 unit-50 mg Tablet 1 tab PO BID Qty: 0 RF: 0 melatonin 5 MG tablet 5 mg PO HS Qty: 0 RF: 0 simvastatin 40 MG tablet 40 mg PO QPM Qty: 0 RF: 0 fenofibrate 160 MG tablet 160 mg PO QDAY Qty: 0 RF: 0 trazodone 50 mg tablet 50 mg PO DAILY 90 Days Qty: 90 RF: 0 alendronate 70 mg tablet 70 mg PO QWEEK 90 Days Qty: 12 RF: 0 multivitamin Tablet 1 tab PO DAILY RF: 0 varicella-zoster [id number]-AS01B (PF) [Shingrix (PF)] 50 MCG/0.5 ML suspension for reconstitution 1 dose IM Q2MO RF: 0 Referrals: Fidelia Castro MD [Primary Care Provider] -
[2019-04-11] MEDS: OXYCODONE/APAP 5/325 PREPACK 1 BOTTLE MISC (22:38)
[2019-04-11 23:28] LABS: Add Manual Diff / Slide Review NO; Basophils Absolute Auto 0 /uL (0-100); Basophils Percent Auto 0.4 % (0-2); Eosinophils Absolute Auto 100 /uL (0-450); Eosinophils Percent Auto 0.5 % (2-4); Hematocrit 35.9 % (36-46); Hemoglobin 12.2 g/dL (12.0-16.0); Lymphocytes Absolute Auto 1100 /uL (1100-4500); Lymphocytes Percent Auto 9.6 % (25-40); Mean Corpuscular HGB Conc 34.1 % (30-36); Mean Corpuscular Hemoglobin 30.8 PG (26-34); Mean Corpuscular Volume 90.4 fL (80-100); Monocytes Absolute Auto 700 /uL (0-900); Monocytes Percent Auto 6.8 % (3-14); Neutrophils Absolute Auto 9100 /uL (1500-7000); Neutrophils Percent Auto 82.7 % (50-75); Platelet Count 328 X10^3/uL (150-400); Red Blood Cell Count 3.97 X10^6/uL (4.0-5.2); Red Cell Distribution Width 15.3 % (11.6-14.8)
[2019-04-11 23:33] LABS: Alanine Aminotransferase 20 IU/L (9-52); Albumin 4.2 g/dL (3.5-5.0); Albumin Globulin Ratio 1.8 (1.0-2.8); Alkaline Phosphatase 91 U/L (38-126); Aspartate Aminotransferase 39 IU/L (14-36); Bilirubin Total 0.3 mg/dL (0.2-1.3); Blood Urea Nitrogen 36 mg/dL (7-17); Carbon Dioxide 27 mmol/L (22-32); Chloride 103 mmol/L (98-107); Estimated Glomerular Filt Rate 54.5 mL/min (>60); Globulin 2.4 g/dL (1.7-4.1); Glucose 124 mg/dL (80-110); HEMOLYSIS 18 (0-50); Potassium 4.1 mmol/L (3.4-5.1); Sodium 138 mmol/L (137-145); Total Protein 6.6 g/dL (6.3-8.2)
[2019-04-11 23:45] LABS: Troponin I 0.023 ng/mL (0.01-0.034)
== END ==
PROVIDERS: Emergency Provider Emergency Medicine; Family Provider Family Medicine; PCP Family Medicine
DX: S70.12XA Contusion of left thigh, initial encounter (principal); W18.30XA Fall on same level, unspecified, initial encounter
CPT/HCPCS: 73502; 80053; 84484; 85025; 99282

== ENCOUNTER 2019-04-11 23:12 | Emergency (ER) | payer MEDICARE, SELFPAY ==
[2018-06-21 10:04] VITALS: BMI 27.3
--- NOTE | 2019-04-11 23:29 | ED.DIZZY ---
HPI - Dizziness General Chief Complaint: Syncope Stated Complaint: hip pain/fall Time Seen by Provider: 04/11/19 23:15 Source: patient Mode of arrival: wheelchair History of Present Illness HPI Narrative: Patient is a 73-year-old female who was literally just discharged for large left leg contusion. She barely made it to the car where she felt extremely dizzy and lightheaded if she did not sit down she was going to pass out. She was given Percocet for pain however she states she did not take it. She now lying down the emergency department is feeling better. She denies any heart palpitations or shortness of breath. She has no numbness tingling or weakness. She has no blurry vision no difficulty speaking or facial drooping no weakness MD complaint: lightheadedness Timing: sudden onset Description: lightheadedness Related Data Home Medications Medication Instructions Recorded Confirmed Ca-D3-mag ju-jomv-mps-jaun-bor 1 tab PO BID #0 02/19/11 06/12/18 [Calcium 600-D3 Plus] FOLIC ACID/VIT A/VIT B1/VIT 1 tab PO QDAY #0 02/19/11 06/12/18 (#MULTIVITAMIN) melatonin 5 mg PO HS #0 10/21/12 06/21/18 fenofibrate 160 mg PO QDAY #0 04/04/17 06/21/18 simvastatin 40 mg PO QPM #0 04/04/17 06/21/18 alendronate 70 mg tablet 70 mg PO QWEEK 90 Days #12 tab 01/04/18 06/21/18 trazodone 50 mg tablet 50 mg PO DAILY 90 Days #90 tab 01/04/18 06/12/18 multivitamin 1 tab PO DAILY 06/12/18 06/12/18 varicella-zoster [id number] (PF) 1 dose IM Q2MO 06/22/18 06/22/18 [Shingrix (PF)] aspirin 81 mg tablet,delayed 81 mg PO DAILY tab 01/03/19 release Previous Rx's Medication Instructions Recorded oxycodone-acetaminophen [Percocet] 1 tab PO Q6HR PRN #10 tab 04/11/19 Allergies Allergy/AdvReac Type Severity Reaction Status Date / Time No Known Drug Allergies Allergy Verified 04/11/19 21:43 Review of Systems Review of Systems ROS Unobtainable: All systems reviewed & are unremarkable except as noted in HPI and below Constitutional Constitutional: Denies chills, Denies fever(s), Denies lethargy and Denies weakness Eyes Eyes: Denies change in vision, Denies eye discharge, Denies irritation and Denies loss of vision Cardiovascular Cardiovascular: Denies dyspnea and Denies dyspnea on exertion Respiratory Respiratory: Denies cough, Denies dyspnea, Denies dyspnea on exertion and Denies wheezing Gastrointestinal Gastrointestinal: Denies abdominal pain, Denies change in bowel habits, Denies diarrhea, Denies nausea and Denies vomiting Musculoskeletal Musculoskeletal: Reports as per HPI and Denies abnormal gait Integumentary/Breasts Skin/Breast: Denies pruritus, Denies erythema, Denies rash and Denies wounds Neurologic Neurologic: Denies abnormal gait, Denies behavioral changes, Denies loss of vision and Denies weakness Psychiatric Psychiatric: Denies behavioral changes Allergic/Immunologic Allergic/Immunologic: Denies wheezing [facility] Medical History Benign paroxysmal vertigo (Acute) Breast cancer (Resolved 2011) Cataracts, bilateral (Resolved 2011) Chicken pox (Resolved 1954) Chronic kidney disease (Acute) Concussion (Acute ~05/2017) Degenerative arthritis of right knee (Acute) Fracture (Resolved 1959) History of heavy periods (Resolved 1974) History of hysterectomy (Acute) Hyperlipidemia (Acute) Hypertension (Chronic 2007) Infection, Pseudomonas (Acute) Infertility (Resolved 1967) Insomnia (Acute) Kidney disease (Chronic 2009) Measles (Resolved 1954) Migraines (Chronic 1984) Osteoarthritis (Chronic 2011) Osteopenia (Chronic 2009) Ovarian cyst (Resolved 1967) Primary osteoarthritis of both knees (Acute) Stroke (Resolved Unknown) Surgical menopause (Acute) Vertigo (Chronic 2014) Surgical History Anesthesia complication (Resolved) H/O right knee surgery (Acute) History of cataract removal with insertion of prosthetic lens (Resolved 2014) History of cataract removal with insertion of prosthetic lens (Resolved 2014) History of colonoscopy (Acute) History of dacryocystorhinostomy (Resolved 2013) History of eye surgery (Resolved 1954) History of eye surgery (Acute) History of left oophorectomy (Acute) History of non-cataract eye surgery (Resolved 2015) History of non-cataract eye surgery (Resolved 2017) History of non-cataract eye surgery (Resolved 2017) History of non-cataract eye surgery (Resolved 2015) History of oophorectomy, unilateral (Resolved 1967) History of oophorectomy, unilateral (Resolved 2005) History of right oophorectomy (Acute) Status post arthroscopy (Resolved 2014) Status post breast biopsy (Resolved 1989) Status post hysterectomy (Resolved 1979) Status post partial mastectomy (Resolved 2011) Status post tubal ligation (Resolved 1974) Family History Brother Age: 83 Heart disease Mental health problem Primary progressive aphasia Brother Age: 69 DVT (deep venous thrombosis) Diabetes mellitus Back problem Joint problem Father Cancer Hodgkin's disease Grandfather Heart disease Heart attack Grandmother Stroke Grandfather Cancer Grandmother Stroke Breast cancer Mother Ovarian cancer Sister Brain aneurysm Sister No problems noted. Social History marital status: number of children: 2 household members: spouse lives independently: Yes caregiver/support person: No housing: house pets and animals: No education level: college occupational status: previously employed current occupational exposures/hazards: No mindy/mandaen: [employer] special mindy needs: No travel history: recent (guille December 2017) leisure activities: exercise, reading and other other: traveling seatbelt use: always helmet use: Yes water heater temp set < 120 deg: Yes working smoke detector in home: Yes fire extinguisher in home: No carbon monox detector in home: No firearms in home: Yes firearms unloaded and locked: Yes do you feel safe at home: Yes Smoking Status: Never smoker second hand exposure: No alcohol intake: never substance use type: does not use during the past year weight has: remained stable well-balanced diet: about half the time daily servings fruits/ve-4 caffeine: Yes eating out: 1-3 times/week Type(s) of exercise: walking frequency: daily duration: 15-30 minutes/day Family History Brother Age: 83 Heart disease Mental health problem Primary progressive aphasia Brother Age: 69 DVT (deep venous thrombosis) Diabetes mellitus Back problem Joint problem Father Cancer Hodgkin's disease Grandfather Heart disease Heart attack Grandmother Stroke Grandfather Cancer Grandmother Stroke Breast cancer Mother Ovarian cancer Sister Brain aneurysm Sister No problems noted. Social History marital status: number of children: 2 household members: spouse lives independently: Yes caregiver/support person: No housing: house pets and animals: No education level: college occupational status: previously employed current occupational exposures/hazards: No mindy/mandaen: [employer] special mindy needs: No travel history: recent (December 2017) leisure activities: exercise, reading and other other: traveling seatbelt use: always helmet use: Yes water heater temp set < 120 deg: Yes working smoke detector in home: Yes fire extinguisher in home: No carbon monox detector in home: No firearms in home: Yes firearms unloaded and locked: Yes do you feel safe at home: Yes Smoking Status: Never smoker second hand exposure: No alcohol intake: never substance use type: does not use during the past year weight has: remained stable well-balanced diet: about half the time daily servings fruits/ve-4 caffeine: Yes eating out: 1-3 times/week Type(s) of exercise: walking frequency: daily duration: 15-30 minutes/day Exam Initial Vital Signs Initial Vital Signs: Vital Signs Temperature 99.0 F 04/11/19 23:32 Pulse Rate 74 04/11/19 23:32 Respiratory Rate 18 04/11/19 23:32 Blood Pressure 134/58 L 04/11/19 23:32 Pulse Oximetry 97 04/11/19 23:32 GENERAL: Well-appearing, well-nourished and in no acute distress. HEENT: Head atraumatic,EOMI, pupils reactive, face symmetric, CARDIOVASCULAR: Regular rate and rhythm without murmurs, rubs or gallops. RESPIRATORY: Breath sounds equal bilaterally, no wheezes rales or rhonchi. ABDOMEN: Soft, nontender. Normoactive bowel sounds all 4 quadrants. No guarding or rebound. EXTREMITIES: Normal range of motion, no clubbing or edema. Neurovascularly intact NEUROLOGICAL: Alert and oriented x4.Normal gait and speech. Cranial nerves II through XII grossly intact. Professor Of Philosophy strength equal bilaterally SKIN: Large left leg contusion Scores NIH Stroke Scale Level of Conciousness: Alert, keenly responsive Ask month/age: Answers both questions correctly. Open/close eyes, close hand: Performs both tasks correctly Best gaze horizontal: Normal Visual uriarte: No visual loss Facial palsy: Normal symetrical movement Left arm drift: No drift for full 10 sec Right arm drift: No drift for full 10 sec Left leg drift: No drift for full 10 sec Right leg drift: No drift for full 10 sec Limb ataxia: Absent Sensory on face/arms/legs: Normal, no sensory loss Best language: No aphasia, normal Dysarthria: Normal Extinction or inattention: No abnormality Total NIH Stroke scale score: 0 Course Orders Ordered: Discontinued Medications Sodium Chloride (Normal Saline 0.9%) 1,000 mls @ 1,000 mls/hr IV CONT MICHAEL Last Infusion: 04/12/19 01:25 Dose: 0 mls/hr Documented by: Admin: 04/11/19 23:49 Dose: 1,000 mls/hr Documented by: ELIZ Vital Signs Vital signs: Vital Signs - 8 hr 04/11/19 23:32 04/12/19 00:26 04/12/19 00:46 Temperature 99.0 F Pulse Rate 74 103 H 80 Respiratory Rate 18 20 20 Blood Pressure 134/58 L Blood Pressure [Left Arm] 81/51 L 174/92 H Pulse Oximetry 97 98 92 04/12/19 01:56 Temperature Pulse Rate 107 H Respiratory Rate 20 Blood Pressure Blood Pressure [Left Arm] 141/61 H Pulse Oximetry MDM - Dizziness Lab Data Attestation: I reviewed the patient's lab results. Lab results narrative: Blood work did report on her note from earlier this evening. ECG Data Attestation: I personally reviewed and interpreted this ECG as follows: Prior ECG tracings: available for review Interpretation: Normal sinus rhythm rate 68 p.r. interval 160 QRS [address] changes no T-wave inversions similar to previous EKG [facility] Narrative Medical decision making narrative: Orthostatics were taken. His with standing patient's blood pressure dropped into the 80 she was symptomatic. She received 1 L of IV fluids. Blood work is and noted on the previous note she has no focal deficits. No need for imaging at this time. Hemoglobin hematocrit stable. After 1 L of fluid her blood pressure remained stable she overall feels significantly better and feels ready and able to go. Discharge Plan Departure Patient Disposition: Home Clinical Impression: Near syncope Discharge Date/Time: 04/12/19 02:10 Instructions: DI for Syncope in Adults (Fainting) Activity Restrictions/Additional Instructions: *You have been diagnosed with near syncope *What to do: Increase fluid intake. Her blood pressure was quite low unclear why. *Continue to take medications as directed *Follow up with your primary care provider in 2-3 days *Return to ER if you should have the passing-out, heart palpitations, lightheadedness increased pain or weakness in your her left leg or any new, worsening or concerning symptoms Prescriptions: No Action aspirin 81 mg tablet,delayed release (DR/EC) 81 mg PO DAILY RF: 0 FOLIC ACID/VIT A/VIT B1/VIT (#MULTIVITAMIN) 1 tab PO QDAY Qty: 0 RF: 0 Ca-D3-mag ja-zdki-yov-jaun-bor [Calcium 600-D3 Plus] 600 mg calcium- 800 unit-50 mg Tablet 1 tab PO BID Qty: 0 RF: 0 melatonin 5 MG tablet 5 mg PO HS Qty: 0 RF: 0 simvastatin 40 MG tablet 40 mg PO QPM Qty: 0 RF: 0 fenofibrate 160 MG tablet 160 mg PO QDAY Qty: 0 RF: 0 trazodone 50 mg tablet 50 mg PO DAILY 90 Days Qty: 90 RF: 0 alendronate 70 mg tablet 70 mg PO QWEEK 90 Days Qty: 12 RF: 0 multivitamin Tablet 1 tab PO DAILY RF: 0 varicella-zoster gE-AS01B (PF) [Shingrix (PF)] 50 MCG/0.5 ML suspension for reconstitution 1 dose IM Q2MO RF: 0 oxycodone-acetaminophen [Percocet] 5-325 mg tablet 1 tab PO Q6HR PRN (Reason: pain) Qty: 10 RF: 0 Referrals: Fidelia Castro MD [Primary Care Provider] -
[2019-04-11 23:32] VITALS: BP 134/58; PULSE 74; RESP 18; TEMP 37.2; O2SAT 97
[2019-04-11] MEDS: SODIUM CHLORIDE 0.9% 1,000 ML 1000 ML IV (23:49)
[2019-04-12 00:26] VITALS: BP 81/51; PULSE 103; RESP 20; O2SAT 98
[2019-04-12 00:46] VITALS: BP 174/92; PULSE 80; RESP 20; O2SAT 92
[2019-04-12 01:56] VITALS: BP 141/61; PULSE 107; RESP 20
== END 2019-04-12 02:10 | disposition home or self-care (01) ==
PROVIDERS: Emergency Provider Emergency Medicine; Family Provider Family Medicine; PCP Family Medicine
DX: R55 Syncope and collapse (principal); S70.12XA Contusion of left thigh, initial encounter; W18.30XA Fall on same level, unspecified, initial encounter
CPT/HCPCS: 73502; 80053; 84484; 85025; 93005; 96360; 96361; 99282; 99283; 99284

== ENCOUNTER → 2019-04-13 10:04 | Outpatient (CLI) | payer MEDICARE, SELFPAY ==
[2018-06-21 10:04] VITALS: BMI 27.3
[2019-04-13 11:42] LABS: Add Manual Diff / Slide Review NO; Basophils Absolute Auto 0 /uL (0-100); Basophils Percent Auto 0.5 % (0-2); Eosinophils Absolute Auto 100 /uL (0-450); Eosinophils Percent Auto 0.8 % (2-4); Hemoglobin 10.9 g/dL (12.0-16.0); Lymphocytes Absolute Auto 1000 /uL (1100-4500); Lymphocytes Percent Auto 12.1 % (25-40); Mean Corpuscular HGB Conc 33.9 % (30-36); Mean Corpuscular Hemoglobin 30.9 PG (26-34); Mean Corpuscular Volume 91.2 fL (80-100); Monocytes Absolute Auto 700 /uL (0-900); Monocytes Percent Auto 8.8 % (3-14); Neutrophils Absolute Auto 6600 /uL (1500-7000); Neutrophils Percent Auto 77.8 % (50-75); Platelet Count 291 X10^3/uL (150-400); Red Blood Cell Count 3.51 X10^6/uL (4.0-5.2); Red Cell Distribution Width 15.8 % (11.6-14.8); White Blood Cell Count 8.4 X10^3/uL (4.5-11.0)
== END ==
PROVIDERS: Family Provider Family Medicine; PCP Family Medicine; Visit Provider Family Medicine
DX: S70.10XA Contusion of unspecified thigh, initial encounter (principal)
CPT/HCPCS: 36415; 85025

== ENCOUNTER → 2019-04-16 09:30 | Outpatient (CLI) | payer MEDICARE, SELFPAY ==
[2018-06-21 10:04] VITALS: BMI 27.3
--- NOTE | 2019-04-16 09:48 | DI.CT.S_ITS ---
PROCEDURE: CT HEAD/BRAIN WO CON INDICATIONS: headache, labile BP after fall TECHNIQUE: Noncontrast 4.5 mm thick angled axial sections acquired from the foramen magnum to the vertex, with coronal and sagittal reformats. For radiation dose reduction, the following was used: automated exposure control, adjustment of mA and/or kV according to patient size. COMPARISON: [facility], CT, HEAD WITHOUT CONTRAST, 06/04/2017, 20:58. [facility], CT, HEAD WITHOUT CONTRAST, 11/23/2015, 17:59. FINDINGS: Image quality: Excellent. CSF spaces: Basal cisterns are patent. No extra-axial fluid collections. Ventricles are normal in size and shape. Brain: No midline shift. No intracranial masses or hemorrhage. Garcia-white matter interface is normal. Skull and face: Calvarium and visualized facial bones are intact, without suspicious lesions. Sinuses: Visualized sinuses and mastoids are clear. IMPRESSION: Normal for age, source of current symptoms is not seen. Dictated by: Danyel Duvall M.D. on 04/16/2019 at 10:15 Approved by: Danyel Duvall M.D. on 04/16/2019 at 10:15
== END ==
PROVIDERS: Family Provider Family Medicine; PCP Family Medicine; Visit Provider Family Medicine
DX: R51 Headache (principal); R09.89 Other specified symptoms and signs involving the circulatory and respiratory systems
CPT/HCPCS: 70450

== ENCOUNTER → 2019-05-02 13:53 | Outpatient (CLI) | payer MEDICARE, SELFPAY ==
[2018-06-21 10:04] VITALS: BMI 27.3
--- NOTE | 2019-05-02 | DI.MRI.S_ITS ---
PROCEDURE: MR KNEE LT WO CON INDICATIONS: Unilateral primary osteoarthritis, left knee pain TECHNIQUE: Noncontrast sagittal PD fast spin echo and T2 fast spin echo with fat saturation, sagittal 3-D FLASH with fat saturation; coronal T1 spin echo and PD fast spin echo with fat saturation, and axial PD fast spin echo with fat saturation through the knee. COMPARISON: [facility] [place], CR, XR KNEE ARTHRITIC SERIES LT, 04/09/2019, 14:35. FINDINGS: Image quality: Excellent. Menisci: Linear oblique high T2 signal intensity traverses the medial meniscal body, demonstrating inferior articular surface extension, indicating oblique tearing. Lateral extrusion of the lateral meniscus is present. There is detachment of the posterior horn lateral meniscus. Amorphous high signal intensity within the anterior horn, body, and posterior horn lateral meniscus is present, demonstrating superior and inferior articular surface extension, indicating degenerative tearing. Fragmentation of the anterior horn and body of the lateral meniscus is present. Cruciate ligaments: There is moderate fluid signal intensity along the course of the anterior cruciate ligament proximally. There is moderate posterior bowing of the anterior cruciate ligament. Posterior cruciate ligament is intact. Medial structures: The medial collateral ligament appears intact. Visualized portions of the pes anserinus tendons appear normal. No abnormal bursal fluid. Lateral structures: The lateral collateral ligament, long and short heads of the biceps femoris tendon appear intact. The popliteus tendon appears normal. Iliotibial band appears normal. Anterior structures: The quadriceps and patellar tendons appear intact. Patellar alignment is normal. No femoral trochlear dysplasia or ventral trochlear prominence. Moderate edema in the infrapatellar fat pad. Bones and cartilage: No bone marrow contusions or fractures. Mild tricompartmental periarticular osteophyte formation is present. Subchondral low T1 and high T2 signal intensity within the weightbearing aspects of the lateral femoral condyle and lateral tibial plateau is present, indicating osteochondral injury. There is mild diffuse articular cartilage loss overlying the weightbearing aspects of the medial femoral condyle and medial tibial plateau. Severe articular cartilage loss diffusely overlies the weightbearing aspects of the lateral femoral condyle and lateral tibial plateau. Moderate articular cartilage loss overlies the lateral patellar apex inferiorly. Joint space: There is a moderate knee joint effusion and a small Galan's cyst. There is a small ganglion cyst along the popliteus, containing multiple intra-articular loose bodies, largest of which measures 6 mm diameter. Normal appearing synovial plicae are incidentally noted. IMPRESSION: 1. Tricompartmental osteoarthritis with associated articular cartilage loss. 2. Knee joint effusion, Galan's cyst, and ganglion cyst along the popliteus, containing an intra-articular loose body. 3. Medial and lateral meniscal tearing. 4. Partial-thickness anterior cruciate ligament tear. Dictated by: Humble Londono M.D. on 05/02/2019 at 16:43 Approved by: Humble Londono M.D. on 05/02/2019 at 16:47
== END ==
PROVIDERS: Family Provider Family Medicine; PCP Family Medicine; Visit Provider Orthopaedic Surgery
DX: M17.12 Unilateral primary osteoarthritis, left knee (principal); S83.241A Other tear of medial meniscus, current injury, right knee, initial encounter; S83.281A Other tear of lateral meniscus, current injury, right knee, initial encounter; S83.511A Sprain of anterior cruciate ligament of right knee, initial encounter; M25.462 Effusion, left knee; M71.21 Synovial cyst of popliteal space [Baker], right knee; M67.461 Ganglion, right knee
CPT/HCPCS: 73721

== ENCOUNTER → 2019-05-28 14:23 | Outpatient (CLI) | payer MEDICARE, SELFPAY ==
[2018-06-21 10:04] VITALS: BMI 27.3
[2019-05-28 15:16] LABS: Add Manual Diff / Slide Review NO; Basophils Absolute Auto 0 /uL (0-100); Basophils Percent Auto 0.7 % (0-2); Eosinophils Absolute Auto 100 /uL (0-450); Eosinophils Percent Auto 1.8 % (2-4); Hematocrit 41.1 % (36-46); Hemoglobin 13.6 g/dL (12.0-16.0); Lymphocytes Absolute Auto 1000 /uL (1100-4500); Lymphocytes Percent Auto 15.9 % (25-40); Mean Corpuscular Volume 93.9 fL (80-100); Monocytes Absolute Auto 500 /uL (0-900); Monocytes Percent Auto 8.4 % (3-14); Neutrophils Absolute Auto 4700 /uL (1500-7000); Neutrophils Percent Auto 73.2 % (50-75); Platelet Count 318 X10^3/uL (150-400); Red Blood Cell Count 4.38 X10^6/uL (4.0-5.2); Red Cell Distribution Width 15.8 % (11.6-14.8); White Blood Cell Count 6.4 X10^3/uL (4.5-11.0)
[2019-05-28 15:44] LABS: Carbon Dioxide 32 mmol/L (22-32); Chloride 100 mmol/L (98-107); HEMOLYSIS < 15 (0-50); Potassium 4.5 mmol/L (3.4-5.1); Sodium 138 mmol/L (137-145)
== END ==
PROVIDERS: PCP Family Medicine; Visit Provider Orthopaedic Surgery
DX: Z01.818 Encounter for other preprocedural examination (principal); Z01.812 Encounter for preprocedural laboratory examination; M17.0 Bilateral primary osteoarthritis of knee
CPT/HCPCS: 36415; 80051; 85025; 93005; 93010

== ENCOUNTER 2019-07-04 06:57 | Day surgery (SDC) | payer MEDICARE, SELFPAY ==
[2018-06-21 10:04] VITALS: BMI 27.3
[2019-07-03 07:43] VITALS: BMI 26.9
[2019-07-04] VITALS (14 sets, daily range): BP systolic 89–134; BP diastolic 36–69; PULSE 57–69; RESP 12–17; TEMP 35.6–36.8; O2SAT 93–100; BMI 26.9
--- NOTE | 2019-07-04 06:54 | DI.RAD.S_ITS ---
PROCEDURE: XR KNEE LT 1TO2V INDICATIONS: post op films TECHNIQUE: 2 view(s) of the knee acquired. COMPARISON: [facility], CR, XR KNEE RT 1TO2V, 06/21/2018, 9:25 FINDINGS: Bones: Patient is status post knee joint arthroplasty. Hardware components are in expected positions. Visualized bony structures are intact. Soft tissues: Overlying postoperative changes are noted. IMPRESSION: Normal alignment after left total knee arthroplasty. Dictated by: Danyel Duvall M.D. on 07/04/2019 at 15:00 Approved by: Danyel Duvall M.D. on 07/04/2019 at 15:01
--- NOTE | 2019-07-04 07:46 | P.OP_ITS ---
Operative Date/Time/Diagnoses Date of procedure: 07/04/19 Time of procedure: 10:27 Pre-op diagnosis: Left knee osteoarthritis Post-op diagnosis: same Procedure & Clinicians Procedure: Left total knee arthroplasty Same procedure as scheduled: Yes Indications: The patient presents today for total knee arthroplasty after failure of conservative treatment. The nature of the procedure including the risks and benefits, alternatives, postoperative course and expected outcome were discussed and all questions answered. Consent was obtained. Operative site confirmed and marked. Surgeon: Martín Noble Golf Ball Marker: Vel Green Anesthesia Type: General, Spinal and Local Operative Notes Findings: Severe osteoarthritis with valgus alignment. Closure Type: primary Specimen(s): none sent Prosthetic devices, grafts, tissues, transplants, or devices: [employer] mobile [employer] BCS: 5 femoral component, 4 tibial component, 10 mm BCS polyethylene tray and 29 x 7.5 mm round patella Applied: implant(s) Estimated Blood Loss (mL): 10 Blood products transfused: none Tourniquet time (min): 44 Procedure in detail: The patient was taken to the operative suite and placed under general and spinal. The patient was given prophylactic antibiotics prior to surgery. The patient was also given tranexamic acid, 1 g, just prior to surgery for postoperative hemostasis. The lateral knee was prepped and the joint injected with 20 mL of 1% Lidocaine with epinephrine. The knee was then prepped and draped in usual sterile fashion. The leg was exsanguinated with an Esmarch dressing and the tourniquet raised to 250 torr. A 15 cm anterior incision was made. Next a medial trivector arthrotomy was made. The extensor mechanism was marked to ensure accurate repair. Initial exposing dissection was carried out medially and laterally. The knee was then extended and the patellar thickness was measured and a cut made removing approximately 7- 8 mm of bone with a goal of restoring normal patellar thickness. The patella was then sized and drilled. Some excess lateral bone was excised and the patellofemoral ligament released. The tourniquet was then released. The knee was then flexed and the [employer] femoral guide was placed. The anterior pins were placed and the distal rotation holes drilled. The distal cutting guide was placed and the templated distal femoral cut was made. The templating cutting block was then placed and the anterior, posterior and chamfer cuts made. The [employer] tibial guide was placed and the alignment checked along the axis of the proximal tibial with a radha. The proximal tibial cut was then made with an oscillating saw. All meniscus and bony debris was then removed. Flexion extension gaps were checked. The knee was tight laterally as expected from her preoperative alignment. This was corrected with release of the tight lateral structures using a 15 blade with a pie crust technique. The soft tissues were then injected with a combination of 20 mL of half percent Marcaine with epinephrine and 20 mL of Exparel. The trial components were then placed. The knee went into full extension and flexion beyond 120?. There was excellent medial- lateral balance throughout motion with some increased medial in comparison to lateral laxity. This was felt to be due more to stretching of the medial structures. Patellar tracking was excellent. The trial components were removed and size is confirmed for the final implants. The knee was then exsanguinated with an Esmarch dressing and the tourniquet reapplied for cementing. The knee was cleansed with Pulsavac irrigation and dried. The final components were cemented in with high viscosity vacuum mixed bone cement with antibiotics. The knee was held in extension and the patellar clamp until the cement had adequately cured. The knee was then irrigated with dilute Betadine solution. The extensor mechanism was closed with 5 interrupted #1 Vicryl sutures in 90 degrees of flexion. The joint was then injected with a combination of 1 g of tranexamic acid and 20 mL of quarter percent Marcaine with epinephrine. The subcutaneous tissue was closed with 2-0 Vicryl. The skin was closed with fela and surgical adhesive. An Aquacel dressing and Tom wrap were then applied. Complications: none Post-operative Condition: stable Disposition: PACU Plan for aftercare: Critical access hospital protocol for total knee arthroplasty.
--- NOTE | 2019-07-04 07:46 | PM.PREOP ---
Pre-operative Note Interval Note History & Physical reviewed/Exam performed by Physician: Yes Changes to H&P: No
[2019-07-04] MEDS: ACETAMINOPHEN 325 MG TABLET 975 MG PO (07:49)
[2019-07-04] MEDS: CELECOXIB 200 MG CAPSULE PO (07:49)
[2019-07-04] MEDS: PREGABALIN 75 MG CAPSULE PO (07:49)
[2019-07-04] MEDS: LACTATED RINGERS 1,000 ML 42 ML IV ×2 (08:00→10:13)
[2019-07-04] MEDS: CEFAZOLIN 2 GM/100 ML FROZ.PIGGY IV ×2 (09:00→16:55)
[2019-07-04] MEDS: LIDOCAINE 1% W/EPI 20 ML INJ (09:20)
[2019-07-04] MEDS: TRANEXAMIC ACID 1,000 MG VIAL 1000 MG INJ (09:20)
[2019-07-04] MEDS: BUPIVACAINE 0.25% W/ EPI (PF) 40 ML, BUPIVACAINE LIPOSOME 266 MG, SODIUM CHLORIDE 0.9% ... INJ (09:47)
[2019-07-04] MEDS: BUPIVACAINE 0.25% W/ EPI (PF) 20 ML, TRANEXAMIC ACID 1,000 MG, SODIUM CHLORIDE 0.9% 10 ML INJ (09:47)
[2019-07-04] MEDS: SODIUM CHLORIDE IRRIG SOLUTION 250 ML, POVIDONE-IODINE SPONGE STICKS 1 APPLIC IRR (09:48)
[2019-07-04] MEDS: BENZOCAINE/MENTHOL 1 LOZ PKT 1 EACH PO (11:03)
[2019-07-04] MEDS: IBUPROFEN 400 MG TABLET PO ×3 (12:11→21:02)
[2019-07-04] MEDS: LACTATED RINGERS 1,000 ML 125 ML IV ×2 (12:11→21:02)
[2019-07-04] MEDS: ASPIRIN EC 81 MG TABLET PO ×2 (12:11→21:03)
--- NOTE | 2019-07-04 14:35 | PT.IIE ---
Current Diagnoses Unilateral primary osteoarthritis, left knee (07/04/19) Surgery Performed Operation Date: 07/04/19 09:15 Actual Procedures p Total Knee Arthroplasty(Left) - Martín Noble MD Surgical History (Last Updated 07/03/19 @ 07:48 by Jessika Rhodes RN) Anesthesia complication (Resolved) H/O right knee surgery (Acute) History of arthroplasty of right knee (Acute 06/21/19) History of cataract removal with insertion of prosthetic lens (Resolved 2014) History of cataract removal with insertion of prosthetic lens (Resolved 2014) History of colonoscopy (Acute) History of dacryocystorhinostomy (Resolved 2013) History of eye surgery (Resolved 1954) History of eye surgery (Acute) History of hysterectomy (Acute) History of left oophorectomy (Acute) History of non-cataract eye surgery (Resolved 2015) History of non-cataract eye surgery (Resolved 2016) History of non-cataract eye surgery (Resolved 2016) History of non-cataract eye surgery (Resolved 2015) History of oophorectomy, unilateral (Resolved 1967) History of oophorectomy, unilateral (Resolved 2005) History of right oophorectomy (Acute) Status post arthroscopy (Resolved 2014) Status post breast biopsy (Resolved 1989) Status post hysterectomy (Resolved 1979) Status post partial mastectomy (Resolved 2011) Status post tubal ligation (Resolved 1974) Medical History (Last Reviewed 04/13/19 @ 19:06 by Deon Cardoso MD) Benign paroxysmal vertigo (Acute) Breast cancer (Resolved 2011) Cataracts, bilateral (Resolved 2011) Chicken pox (Resolved 1954) Chronic kidney disease (Acute) Concussion (Acute ~05/2017) Degenerative arthritis of right knee (Acute) Fracture (Resolved 1959) History of heavy periods (Resolved 1974) Hyperlipidemia (Acute) Hypertension (Chronic 2007) Infection, Pseudomonas (Acute) Infertility (Resolved 1967) Insomnia (Acute) Kidney disease (Chronic 2009) Measles (Resolved 1954) Migraines (Chronic 1984) Osteoarthritis (Chronic 2011) Osteopenia (Chronic 2009) Ovarian cyst (Resolved 1967) Primary osteoarthritis of both knees (Acute) Stroke (Resolved Unknown) Surgical menopause (Acute) Vertigo (Chronic 2014) Physical Therapy Inpatient Evaluation/Re-Eval M1 PT/OT-IP Prior Functional Status Start: 07/04/19 16:41 Freq: NEEDED Status: Active Protocol: Document 07/04/19 14:35 AB (Rec: 07/04/19 17:02 AB [id number]) Medical Review Prior Functional Status Medical History Reviewed Yes Communication able to make needs known Mobility and Gait pt stated that she is independent with all mobilities and ambulation without AD Social History Household Members spouse Living Arrangements House Number of Floors (Floors) One Floor Number of Stairs To Enter/Railing? 2 steps to enter with bilateral rails; stated that she has anther way to get into the house but she has to walk farther but only has 1 step to enter Home Environment High Toilet,Walk in Shower Home Equipment Front Wheel Walker,Shower Seat without Backrest,Hand Held Shower,Grab Bars Near Toilet, Grab Bars In Shower Employment Status Retired Additional Social History Comment has a tripod cane M2 PT-IP Current Condition Start: 07/04/19 16:41 Freq: NEEDED Status: Active Protocol: Document 07/04/19 14:35 AB (Rec: 07/04/19 17:02 [id number]) Physical Therapy Current Condition Current Condition Evaluation Date 07/04/19 Treatment Diagnosis s/p L TKA; difficulty in walking Onset Date 07/04/19 Weight Bearing Status Weight Bearing Status Weight Bear as Tolerated Allowed Weight Bearing Amount (enter % LLE WBAT or #) (%) M3 PT-IP Subjective Start: 07/04/19 16:41 Freq: NEEDED Status: Active Protocol: Document 07/04/19 14:35 AB (Rec: 07/04/19 17:02 [id number]) Subjective Physical Therapy Visit Type Type Initial Evaluation Visit Start Time 14:35 Visit Stop Time 15:10 Total Visit Minutes 35 Number of FOOD TECHNICIAN Visits 0 Physical Therapy Visit Comments Patient Comments pt agreeable to do PT Therapy Pain Assessment Pain When Pain Assessed During Mobility Location Right Knee Scale Used pain scale not stated Pain Behaviors Facial Grimacing,Guarding Pain Management Techniques Apply Cold,Modification of Treatment,Re-positioning M4 PT-IP Mobility and Gait Start: 07/04/19 16:41 Freq: NEEDED Status: Active Protocol: Document 07/04/19 14:35 AB (Rec: 07/04/19 17:02 AB [id number]) PT-Bed Mobility Assessment Supine to Sit Supine to Sit Contact Guard Assistance Scooting Scooting to Edge of Bed Standby Assistance PT-Transfer Assessment Sit to and From Stand Sit to and from Stand Minimal Assistance,Moderate Assistance Equipment Transfer Assistive Device Gait Belt,Front Wheeled Walker Orthotic/Prosthetic Devices or Brace: No Transfers Transfer Destination Toilet Transfer Technique ambulated using FWW Transfer Ability Level of Assist Moderate Assistance,1 Person Assistance,Use of Upper Extremities Comments Mobility Comments pt completed supine to sit SBA and was able to sit on EOB SBA. completed sit to stand min A from EOB. ambulated to the toilet using FWW mod A and max cues for safety. pt with unsteady gait and has difficulty following directions and can be impulsive. completed descent to the toilet mod to max A and max cues with use of grab bar for support. completed sit to stand from the toilet mod A and cues using grab bars, assisted with brief management . pt ambulated towards the chair using FWW mod A and cues . positioned pt on the chair. call light and table placed within reach. Gait Assessment Gait Gait Assistance Required: Moderate Assistance Distance (Feet) 12 Able to Maintain Weight Bearing Status Yes During Gait Assistive Devices Assistive Device Gait Belt,Front Wheeled Walker Orthotic/Prosthetic Devices or Brace: No Gait Deviations General Gait Pattern Antalgic,Decreased Stride Length Factors Limiting Gait Function Factors Limiting Gait Function Decreased Activity Tolerance, Decreased Sensation,Decreased Strength,Difficulty Following Directions,Limited Range of Motion,Pain,Poor Balance,Poor Safety Awareness PT-Balance Assessment Sitting Balance and Reactions Static Sitting Balance Ability Good Dynamic Sitting Balance Ability Good Standing Balance and Reactions Static Standing Balance Ability Fair Dynamic Standing Balance Ability Fair Device Used FWW M5 PT-IP Objective Assessments Start: 07/04/19 16:41 Freq: NEEDED Status: Active Protocol: Document 07/04/19 14:35 AB (Rec: 07/04/19 17:02 AB [id number]) Orientation Orientation/Cognition Level of Alertness Alert Orientation Name,Place,Situation Language Function Ability No Deficits Noted Safety Awareness Decreased Safety Awareness Memory Description No Deficits Noted Gross Range of Motion Lower Extremity ROM Assessment Left Impaired Impairments L knee flexion: ~ 70 deg Strength Lower Extremity Strength Assessment Left Impaired Hip 4-/5 Knee 3+/5 Coordination Assessment Gross Coordination Gross Coordination WNL Sensation Assessment Sensation Sensation Description Numbness Comments Sensation Comments c/o numbness of posterior thigh and buttocks area Muscle Tone Muscle Tone WNL Yes M6 PT-IP Treatment Start: 07/04/19 16:41 Freq: NEEDED Status: Active Protocol: Document 07/04/19 14:35 AB (Rec: 07/04/19 17:02 AB [id number]) Physical Therapy Treatment Exercises Exercises Heel Slides Education Education Provided Precautions,Weight Bearing Status,Post-Op Packet,Safety M7 PT-IP Assessment and Plan Start: 07/04/19 16:41 Freq: NEEDED Status: Active Protocol: Document 07/04/19 14:35 AB (Rec: 07/04/19 17:02 AB [id number]) PT Summary Assessment and Plan Potential Rehabilitation Potential Good Status of Condition at Evaluation Stable Summary Impairments Pain,ROM,Strength,Balance, Coordination,Sensation,Tone, Cognition,Bed Mobility, Transfers,Gait,Activity Tolerance Assessment Summary pt requires mod A and cues with mobility. pt plans to go home and spouse will assist her. d/c plan depends on progress and will conduct caregiver training when appropriate and also stair climbing training. Goals Bed Mobility Goal Standby Assistance Transfer Goal Standby Assistance,Front Wheeled Walker Gait Goal Standby Assistance,Front Wheel Walker Gait Distance 200 Other Goals up/down 2 steps with B rails SBA Days to Meet Goals 5 Frequency of Treatment Frequency Of Treatment Twice a Day Treatment Plan Physical Therapy Treatment Plan Bed Mobility Training,Transfer Training,Gait Training, Therapeutic Exercise,Balance Retraining,Post Op Education, Discharge Planning,Hot or Cold Pack,Neuromuscular Re-ed, Coordination Retraining,Manual Therapy Recommendations To Nursing Amount of Assist Needed 1 Person Assist Discharge Recommendations PT Discharge Recommendations Home with 24/ Assist, Outpatient PT
[2019-07-04] MEDS: ACETAMINOPHEN 325 MG TABLET 650 MG PO ×2 (15:03→21:02)
[2019-07-04] MEDS: OXYCODONE IR 10 MG TABLET PO ×2 (15:03→21:03)
--- NOTE | 2019-07-04 15:20 | PC.NURSE ---
Admitted to 204 s/p lt tka. No pain at this time. Can feel foot when it is touched and wiggle toes but can't lift the foot off of the bed. Pt reports she is still pretty numb. Did get some pain med at 1500, she was concerned because her last surgery she had pain issues since she didn't have orders and had to wait, the pain got out of control then. Right now pain is a 4 and she wants to keep on top of the pain and this is done. Has brisk cap refil to the foot and feet are =/cool, ppp. Tolerated diet with out problems. Has not voided since surgery. Cont w/poc.
[2019-07-04] MEDS: AMOXICILLIN/CLAV 875/125 MG 1 TAB PO (21:03)
[2019-07-04] MEDS: MELATONIN 3 MG TABLET 6 MG PO (21:03)
[2019-07-04] MEDS: SIMVASTATIN 40 MG TABLET PO (21:03)
[2019-07-04] MEDS: TRAZODONE 50 MG TABLET PO (21:03)
[2019-07-04] MEDS: FENOFIBRATE 160 MG TABLET PO (21:06)
--- NOTE | 2019-07-04 21:38 | PC.NURSE ---
Patient voided in bathroom with 1-asst and FWW; mild to moderate pain with activity; patient tolerating PO Oxycodone, denies pain at rest; Ice to Left Knee; Aquacell and BERNICE wrap c/d/i; PPP; C/M/S positive to LLE; LS clear, patient instructed to deep breath; O2 RA=96%; IV fluids infusing; patient using call light, as needed
[2019-07-05] VITALS: BP 118/61; PULSE 52; RESP 16; TEMP 37; O2SAT 98
[2019-07-05] MEDS: IBUPROFEN 400 MG TABLET PO ×4 (00:40→12:31)
[2019-07-05] MEDS: OXYCODONE IR 10 MG TABLET PO ×4 (00:40→12:32)
[2019-07-05] MEDS: CEFAZOLIN 2 GM/100 ML FROZ.PIGGY IV (01:02)
[2019-07-05 06:00] VITALS: BP 123/54; PULSE 56; RESP 16; TEMP 36.7; O2SAT 97
[2019-07-05 06:44] LABS: Hematocrit 36.1 % (36-46); Hemoglobin 12.1 g/dL (12.0-16.0)
[2019-07-05] MEDS: ACETAMINOPHEN 325 MG TABLET 650 MG PO ×2 (07:57→12:31)
[2019-07-05] MEDS: ASPIRIN EC 81 MG TABLET PO (07:58)
[2019-07-05 08:34] VITALS: BP 149/58; PULSE 58; RESP 16; TEMP 36.3; O2SAT 99
--- NOTE | 2019-07-05 09:23 | P.PN_ITS ---
Subjective Subjective Date Patient Seen: 07/05/19 Time Patient Seen: 09:24 Interval history: Patient states her pain is 5 to 7/10. No fever chills. No nausea vomiting. Patient has not yet received physical therapy. She has been up a few times to use the restroom. Exam Vital Signs (past 8 hours): - 07/05/19 06:00 07/05/19 08:34 Temperature 98.0 F 97.3 F L Pulse Rate 56 L 58 L Respiratory Rate 16 16 Blood Pressure 123/54 L 149/58 H Pulse Oximetry 97 99 Oxygen Delivery Method Room Air Oxygen Flow Rate 0 Narrative Exam Narrative: Pleasant 73-year-old female resting comfortably in bed in no apparent distress. Left knee dressing is clean, dry and intact. Motor funct ions intact distally. Sensation grossly intact to light touch. Both legs are warm and dry. Objective Labs Result Diagrams: 07/05/19 06:25 Labs: Laboratory Results - last 24 hr 07/05/19 06:25 Hgb 12.1 Hct 36.1 Assessment & Plan Post-op Postoperative Procedures: Procedures Operation Date: 07/04/19 09:15 Actual Procedures Side Surgeon p Total Knee Arthroplasty Left Martín Noble MD Postop day 1 status post left total knee arthroplasty. Mobilize with physical therapy. Likely discharge home tomorrow. Quality VTE Deep Vein Thrombosis/Pulmonary Embolism Present on Admission: No
--- NOTE | 2019-07-05 10:41 | CM.DANOTE ---
Addendum entered by Amy Ontiveros R.N. 07/05/19 15:57: After speaking to Vel, RICHY reno, and P.T, it is determined that patient is stable for discharge. Vel had mentioned that patient wanted to see if she could stay another day. This case worker went back to speak to patient, and ask her if she was feeling anxious about discharge, since she is medically cleared, and cleared with therapy. She mentioned, she was ok with discharge, but her could not come and get her until later in the day. Let her know that she could leave later in the day if needed, but she is stable to go home today. Updated nurse, Hollie, as well Original Note: DCP: Case received, EMR reviewed and met with patient. Introduced self and role. Was able to meet with patient to obtain baseline health and activity information. DCP assessment completed with information currenty available. Patient is a 73 year old female who admitted yesterday morning to the care of the orthopedic team. PCP: Dr. Castro. Payer: confirmed; Medicare/AARP Patient came to the hospital for a surgical procedure. She had left total knee arthroplasty. Patient has history of osteoarthritis. Met with patient in her room. She is alert and oriented, and resides with her , Dereck. She is independent. She already has outpatient P.T. set up. is supportive, and will be giving her assist at home. Patient is currently working with P.T. P: DCP to continue to follow. She should be able to go home when medically stable and cleared by therapy team. Amy Ontiveros RN/Counter Control Operator
--- NOTE | 2019-07-05 11:09 | PT.IPTN ---
Current Diagnoses Unilateral primary osteoarthritis, left knee (07/04/19) Surgery Performed Operation Date: 07/04/19 09:15 Actual Procedures p Total Knee Arthroplasty(Left) - Martín Noble MD Physical Therapy Treatment Note M2 PT-IP Current Condition Start: 07/04/19 16:41 Freq: NEEDED Status: Active Protocol: Document 07/04/19 14:35 AB (Rec: 07/04/19 17:02 AB [id number]) Physical Therapy Current Condition Current Condition Evaluation Date 07/04/19 Treatment Diagnosis s/p L TKA; difficulty in walking Onset Date 07/04/19 Weight Bearing Status Weight Bearing Status Weight Bear as Tolerated Allowed Weight Bearing Amount (enter % LLE WBAT or #) (%) M3 PT-IP Subjective Start: 07/04/19 16:41 Freq: NEEDED Status: Active Protocol: Document 07/05/19 10:57 BRITTANY (Rec: 07/05/19 12:09 BRITTANY [id number]) Subjective Physical Therapy Visit Type Type Treatment Note Visit Start Time 10:57 Visit Stop Time 11:09 Total Visit Minutes 12 Notes Treatment supervised by PETER Bowie. Number of ENGINEER OF SYSTEM DEVELOPMENT Visits 1 Physical Therapy Visit Comments Patient Comments pt agreeable to do PT, pts /caregiver present for caregiver training. Therapy Pain Assessment Pain When Pain Assessed During Mobility Pain Present Pain Present Pain Reported Location Right Knee Intensity 8 Scale Used Numeric (1 - 10) Pain Behaviors Guarding Pain Management Techniques Apply Cold,Re-positioning M4 PT-IP Mobility and Gait Start: 07/04/19 16:41 Freq: NEEDED Status: Active Protocol: Document 07/05/19 10:57 BRITTANY (Rec: 07/05/19 12:09 BRITTANY [id number]) PT-Bed Mobility Assessment Supine to Sit Supine to Sit Standby Assistance Sit to Supine Sit to Supine Standby Assistance Scooting Scooting to Edge of Bed Standby Assistance PT-Transfer Assessment Sit to and From Stand Sit to and from Stand Standby Assistance,1 Person Assistance,Use of Upper Extremities Equipment Transfer Assistive Device Gait Belt,Front Wheeled Walker Orthotic/Prosthetic Devices or Brace: No Transfers Transfer Destination Bed Transfer Technique ambulated using FWW Transfer Ability Level of Assist Standby Assistance,1 Person Assistance,Use of Upper Extremities Comments Mobility Comments Pt was in bed upon arrival from therapy w/ / caregiver Jefe present in room. Pt was SBA for sup<>sit and scooting to EOB. Instructed Jefe on proper use of gaitbelt, which he applied correctly to pt. Pt stood SBA w/ FWW and use of UE for pushing up from bed. Pt required min cues to reach back for bed prior to sitting. SBA for stand<>sit and sit<> sup w/ FWW. Pt left in bed w/ SCDs on, all needs in reach and in room. Gait Assessment Gait Gait Assistance Required: Standby Assistance,1 Person Assist Distance (Feet) 275 Able to Maintain Weight Bearing Status Yes During Gait Assistive Devices Assistive Device Gait Belt,Front Wheeled Walker Orthotic/Prosthetic Devices or Brace: No Gait Deviations General Gait Pattern Antalgic,Decreased Stride Length Factors Limiting Gait Function Factors Limiting Gait Function Decreased Activity Tolerance, Decreased Sensation,Decreased Strength,Difficulty Following Directions,Limited Range of Motion,Pain,Poor Balance,Poor Safety Awareness Comments Gait Comments Pt ambulated ~275 ft from bed to stairs and then around loop w/ FWW and SBA provided by /caregiver Jefe. Pt required min cues for heel toe walking and quad activation, pts gait improved/normalized but became more stiff towards end of long bout of ambulation and pt required cues to keep bending knee. Stair Climbing Assessment Evaluation Level of Assist On Stairs Standby Assistance,Contact Guard Assistance,1 Person Assistance Devices Stair Climbing Assistive Devices Left Railing,Right Railing Technique/Endurance Stair Climbing Direction Ascend and Descend Stair Climbing Technique Step to Step Number of Steps Climbed 3 Stair Climbing Set # Repetitions (reps) 1 Comments Stair Climbing Comments Pt and caregiver Jefe instructed in stair training. Pt was amble to ascend/descend 3 steps w/ use of both handrails as she has available in home. Jefe instructed in underhand director [employer] on gait belt and staggered stance WBOS for guarding pt. Pt remembered correct sequencing of ascend/ descend from previous knee replacement. Pt and caregiver reported that they both felt safe during stair training. PT-Balance Assessment Sitting Balance and Reactions Static Sitting Balance Ability Good Dynamic Sitting Balance Ability Good Standing Balance and Reactions Static Standing Balance Ability Good Dynamic Standing Balance Ability Good Device Used FWW M5 PT-IP Objective Assessments Start: 07/04/19 16:41 Freq: NEEDED Status: Active Protocol: Document 07/04/19 14:35 AB (Rec: 07/04/19 17:02 AB [id number]) Orientation Orientation/Cognition Level of Alertness Alert Orientation Name,Place,Situation Language Function Ability No Deficits Noted Safety Awareness Decreased Safety Awareness Memory Description No Deficits Noted Gross Range of Motion Lower Extremity ROM Assessment Left Impaired Impairments L knee flexion: ~ 70 deg Strength Lower Extremity Strength Assessment Left Impaired Hip 4-/5 Knee 3+/5 Coordination Assessment Gross Coordination Gross Coordination WNL Sensation Assessment Sensation Sensation Description Numbness Comments Sensation Comments c/o numbness of posterior thigh and buttocks area Muscle Tone Muscle Tone WNL Yes M6 PT-IP Treatment Start: 07/04/19 16:41 Freq: NEEDED Status: Active Protocol: Document 07/05/19 10:57 BRITTANY (Rec: 07/05/19 12:09 BRITTANY [id number]) Physical Therapy Treatment Education Education Provided Post-Op Packet,Safety Other Treatments Other Treatment Performed Pt instructed to practice LE strengthening and ROM exercises provided in post op packet. M7 PT-IP Assessment and Plan Start: 07/04/19 16:41 Freq: NEEDED Status: Active Protocol: Document 07/05/19 10:57 BRITTANY (Rec: 07/05/19 12:09 BRITTANY [id number]) PT Summary Assessment and Plan Potential Rehabilitation Potential Good Status of Condition at Evaluation Stable Summary Impairments Pain,ROM,Strength,Balance, Coordination,Sensation,Tone, Cognition,Bed Mobility, Transfers,Gait,Activity Tolerance Assessment Summary Pt is SBA for all bed mobility and transfers as well as ambulation. SBA to CGA for stairs. Successful and safe caregiver training provided to pts . Pt was able to ambulate ~275 ft w/ FWW and min cues for knee bending and symmetrical step length to normalize gait. Pt completed 3 steps w/ use of bilat handrails and SBA to CGA safely demonstrated by . Pt has met all PT goals and safe to return home w/ providing assistance when medically stable. Goals Bed Mobility Goal Standby Assistance Transfer Goal Standby Assistance,Front Wheeled Walker Gait Goal Standby Assistance,Front Wheel Walker Gait Distance 200 Days to Meet Goals 5 Frequency of Treatment Frequency Of Treatment Twice a Day Treatment Plan Physical Therapy Treatment Plan Bed Mobility Training,Transfer Training,Gait Training, Therapeutic Exercise,Balance Retraining,Post Op Education, Discharge Planning,Hot or Cold Pack,Neuromuscular Re-ed, Coordination Retraining,Manual Therapy Recommendations To Nursing Amount of Assist Needed 1 Person Assist Discharge Recommendations PT Discharge Recommendations Home with 14/02 Assist, Outpatient PT
--- NOTE | 2019-07-05 12:01 | PM.DS.1 ---
History of Present Illness History of Present Illness Date Patient Seen: 07/05/19 Time Patient Seen: 12:01 Chief complaint: [id number] Narrative: Patient did well with physical therapy. Her pain is well controlled. Discharge Providers Provider Date of admission: 07/04/19 06:57 Discharge Date: 07/05/19 Primary care physician: Fidelia Castro MD Consults: 07/04/19 11:35 Consult to Discharge Planning Routine Comment: Consult to Physical Therapy Evaluate & Treat Comment: Physician Instructions: postop TKA protocol Consult to Respiratory Therapy Evaluate & Treat Comment: Physician Instructions: Evaluate and treat Discharge provider: Vel Green PA-C Summary Hospital Course Discharge Diagnosis: Status post left total knee arthroplasty secondary to severe left knee osteoarthritis Hospital Course: Procedure: Left total knee arthroplasty Same procedure as scheduled: Yes Indications: The patient presents today for total knee arthroplasty after failure of conservative treatment. The nature of the procedure including the risks and benefits, alternatives, postoperative course and expected outcome were discussed and all questions answered. Consent was obtained. Operative site confirmed and marked. Surgeon: Martín Noble Food Safety Scientist: Vel Green Anesthesia Type: General, Spinal and Local Operative Notes Findings: Severe osteoarthritis with valgus alignment. Closure Type: primary Specimen(s): none sent Prosthetic devices, grafts, tissues, transplants, or devices: [employer]er[employer] BCS: 5 femoral component, 4 tibial component, 10 mm BCS polyethylene tray and 29 x 7.5 mm round patella Applied: implant(s) Estimated Blood Loss (mL): 10 Blood products transfused: none Tourniquet time (min): 44 Patient admitted to the hospital for left total knee arthroplasty. Patient consented to the same. Patient taken to operating room underwent left total knee arthroplasty. Patient back in her room recovering well as in stable condition. Patient did well with physical therapy this morning. Patient has her home to assist her. She will follow pain management per protocol. Status at Discharge Cognitive/behavioral status at discharge: at baseline, oriented Functional status at discharge: uses cane/walker Overall status at discharge: patient is progressing back to baseline Time Spent with Patient Time spent: Less than 30 minutes Exam Vital Signs (past 8 hours): - 07/05/19 06:00 07/05/19 08:34 Temperature 98.0 F 97.3 F L Pulse Rate 56 L 58 L Respiratory Rate 16 16 Blood Pressure 123/54 L 149/58 H Pulse Oximetry 97 99 Oxygen Delivery Method Room Air Oxygen Flow Rate 0 Narrative Exam Narrative: See progress note Objective Labs Result Diagrams: 07/05/19 06:25 Labs: Laboratory Results - last 24 hr 07/05/19 06:25 Hgb 12.1 Hct 36.1 Discharge Plan Discharge Plan Patient Disposition: Home Discharge orders & Medications Prescriptions: Continued aspirin 81 mg tablet,delayed release (DR/EC) 81 mg PO DAILY RF: 0 Hold Instructions: bleeding multivitamin Capsule 1 cap PO DAILY Qty: 0 RF: 0 Ca-D3-mag [id number]-[id number]-jaun-bor [Calcium 600-D3 Plus (mag-zinc)] 600 mg calcium- 800 unit-50 mg Tablet 1 tab PO BID Qty: 0 RF: 0 melatonin 5 MG tablet 5 mg PO HS Qty: 0 RF: 0 alendronate 70 mg tablet 70 mg PO QWEEK 90 Days Qty: 12 RF: 0 trazodone 50 mg tablet 50 mg PO BEDTIME RF: 0 amoxicillin-pot clavulanate [Augmentin] 875-125 mg tablet 1 tab PO BID RF: 0 eszopiclone 2 mg tablet 0.25 mg PO BEDTIME PRN (Reason: insomnia) RF: 0 fenofibrate 160 mg tablet 160 mg PO BEDTIME RF: 0 simvastatin 40 mg Tablet 40 mg PO BEDTIME RF: 0 Follow up/Referrals: Martín Noble MD [Physician] - (1 wk) Fidelia Castro MD [Primary Care Provider] - Diet/Activity/Treatments Activity: WBAT Cold/Heat Therapy: ice as needed Skin/Wound/Dressing Care Report to your healthcare provider any signs of infection, such as:: chills, fever, increased pain, unusual drainage and unusual redness Dressing: keep clean and dry Visit Report/Discharge Packet Instructions: DI for Knee Replacement, DI for Constipation, How to Prevent Falls Discharge Data Primary Care Provider: Fidelia Castro Quality VTE Deep Vein Thrombosis/Pulmonary Embolism Present on Admission: No
[2019-07-05] MEDS: POLYETHYLENE GLYCOL 3350 17 GM POWD.PACK PO (12:36)
[2019-07-05 13:00] VITALS: BP 140/63; PULSE 55; RESP 16; TEMP 36.6; O2SAT 100
== END 2019-07-05 14:55 | disposition home or self-care (01) ==
LOC: AC 07-05 15:25 → OR 07-06 06:55
PROVIDERS: PCP Family Medicine; Visit Provider Orthopaedic Surgery
PROC: 0SRD0JZ Replacement of Left Knee Joint with Synthetic Substitute, Open Approach (ICD-10-PCS; CPT 27447; principal; 2019-07-04 09:15)
DX: M17.12 Unilateral primary osteoarthritis, left knee (principal); I10 Essential (primary) hypertension; N18.3 Chronic kidney disease, stage 3 (moderate); M85.80 Other specified disorders of bone density and structure, unspecified site
CPT/HCPCS: 27447; 36415; 73560; 85014; 85018; 94762; 97116; 97161; C1776; C9290; J0690; J1100; J2250; J2274; J2405; J2704; J3010

== ENCOUNTER 2019-12-13 16:52 | Emergency (ER) | payer MEDICARE, SELFPAY ==
[2019-07-04 11:53] VITALS: BMI 26.9
[2019-12-13 17:00] VITALS: BP 173/71; PULSE 74; RESP 14; TEMP 36.8; O2SAT 97; BMI 27.4
--- NOTE | 2019-12-13 17:04 | DI.RAD.S_ITS ---
PROCEDURE: XR WRIST RT MIN 3V INDICATIONS: fall TECHNIQUE: 4 views of the wrist were acquired. COMPARISON: None. FINDINGS: Bones: There is a mildly displaced fracture at the base of the fifth metacarpal. Prominent first CMC degenerative narrowing is present. Scaphoid view: No scaphoid fracture. Soft tissues: No suspicious soft tissue calcifications. IMPRESSION: Mildly displaced fifth metacarpal base fracture. Dictated by: Ophelia Fu M.D. on 12/13/2019 at 17:34 Approved by: Ophelia Fu M.D. on 12/13/2019 at 17:35
[2019-12-13 18:32] VITALS: BP 188/77; PULSE 69; RESP 16; O2SAT 98
--- NOTE | 2019-12-14 01:04 | ED.FALL ---
HPI - Fall General Chief Complaint: Fall Stated Complaint: fall/pain in right hand and behind right thigh Time Seen by Provider: 12/13/19 18:13 Source: patient Mode of arrival: Wheelchair Limitations: no limitations History of Present Illness HPI Narrative: 74F non smoker with history of hyperlipidemia presents with a chief complaint of right hand pain after suffering a ground level fall just prior to arrival. She was out for a walk when a large dog was running toward her and she became nervous and lost her balance, fearing a would knock her over. She fell onto her right hand and has pain in her lateral hand with some bruising. The pain is worse with motion and improves with rest. Additionally she has some pain behind her right thigh that is minor. She denies any head neck or back pain. She denies chest pain or shortness of breath. She states her fall was purely because she lost her balance MD complaint: fall Onset (ago): minute(s) Fall from: standing Fall witnessed: yes, by family Place fall occurred: street Loss of consciousness: none Prolonged down time: no Symptoms prior to fall: none Context: tripped/slipped Location of injury - extremities: Right: hand Related Data Home Medications Medication Instructions Recorded Confirmed Ca-D3-mag ao-[id number]-gqs-jaun-bor 1 tab PO BID #0 02/19/11 07/04/19 [Calcium 600-D3 Plus (mag-zinc)] multivitamin 1 cap PO DAILY #0 02/19/11 07/04/19 melatonin 5 mg PO HS #0 10/21/12 07/04/19 alendronate 70 mg tablet 70 mg PO QWEEK 90 Days #12 tab 01/04/18 07/04/19 aspirin 81 mg tablet,delayed 81 mg PO DAILY tab 01/03/19 07/04/19 release amoxicillin-pot clavulanate 1 tab PO BID 07/03/19 07/04/19 [Augmentin] trazodone 50 mg PO BEDTIME 07/03/19 07/04/19 Previous Rx's Medication Instructions Recorded eszopiclone 2 mg tablet 0.5 mg PO BEDTIME PRN #30 tab 09/04/19 fenofibrate 160 mg tablet 160 mg PO BEDTIME #90 tab 12/05/19 simvastatin 40 mg tablet 40 mg PO BEDTIME #90 tab 12/05/19 Allergies Allergy/AdvReac Type Severity Reaction Status Date / Time No Known Drug Allergies Allergy Verified 12/13/19 17:00 Review of Systems Constitutional Constitutional: Denies chills, Denies fatigue, Denies fever(s), Denies frequent falls, Denies lethargy and Denies weakness Eyes Eyes: Denies change in vision, Denies eye discharge, Denies irritation and Denies loss of vision ENT Ears, Nose, Mouth, and Throat: Denies change in voice, Denies dizziness, Denies neck pain, Denies sore throat and Denies throat swelling Cardiovascular Cardiovascular: Denies chest pain, Denies irregular heart rhythm, Denies lightheadedness, Denies palpitations, Denies dyspnea, Denies dyspnea on exertion and Denies orthopnea Respiratory Respiratory: Denies cough, Denies dyspnea, Denies dyspnea on exertion and Denies wheezing Gastrointestinal Gastrointestinal: Denies abdominal pain, Denies change in bowel habits, Denies diarrhea, Denies nausea and Denies vomiting Genitourinary Genitourinary: Denies hematuria, Denies flank pain, Denies urinary incontinence and Denies urinary urgency Musculoskeletal Musculoskeletal: Denies back pain, Reports limited range of motion, Denies muscle weakness, Denies neck pain, Denies numbness and Denies tingling Integumentary/Breasts Skin/Breast: Denies pruritus, Denies erythema, Denies rash and Denies wounds Neurologic Neurologic: Denies behavioral changes, Denies confusion, Denies dizziness, Denies frequent falls, Denies loss of vision, Denies numbness, Denies tingling and Denies weakness Psychiatric Psychiatric: Denies anxiety, Denies behavioral changes, Denies confusion, Denies depression, Denies homicidal ideation and Denies suicidal ideation Endocrine Endocrine: Denies fatigue, Denies flushing and Denies palpitations Hematologic/Lymphatic Hematologic/Lymphatic: Denies easy bruising Allergic/Immunologic Allergic/Immunologic: Denies urticaria, Denies throat swelling and Denies wheezing Patient History Medical History Benign paroxysmal vertigo (Acute) Breast cancer (Resolved 2011) Cataracts, bilateral (Resolved 2011) Chicken pox (Resolved 1954) Chronic kidney disease (Acute) Concussion (Acute ~05/2017) Degenerative arthritis of right knee (Acute) Fracture (Resolved 1959) History of heavy periods (Resolved 1974) Hyperlipidemia (Acute) Hypertension (Chronic 2007) Infection, Pseudomonas (Acute) Infertility (Resolved 1967) Insomnia (Acute) Kidney disease (Chronic 2009) Measles (Resolved 1954) Migraines (Chronic 1984) Osteoarthritis (Chronic 2011) Osteopenia (Chronic 2009) Ovarian cyst (Resolved 1967) Primary osteoarthritis of both knees (Acute) Stroke (Resolved Unknown) Surgical menopause (Acute) Vertigo (Chronic 2014) Surgical History Anesthesia complication (Resolved) H/O right knee surgery (Acute) History of arthroplasty of right knee (Acute 06/21/19) History of cataract removal with insertion of prosthetic lens (Resolved 2014) History of cataract removal with insertion of prosthetic lens (Resolved 2014) History of colonoscopy (Acute) History of dacryocystorhinostomy (Resolved 2013) History of eye surgery (Resolved 1954) History of eye surgery (Acute) History of hysterectomy (Acute) History of left oophorectomy (Acute) History of non-cataract eye surgery (Resolved 2015) History of non-cataract eye surgery (Resolved 2016) History of non-cataract eye surgery (Resolved 2016) History of non-cataract eye surgery (Resolved 2015) History of oophorectomy, unilateral (Resolved 1967) History of oophorectomy, unilateral (Resolved 2005) History of right oophorectomy (Acute) Status post arthroscopy (Resolved 2014) Status post breast biopsy (Resolved 1989) Status post hysterectomy (Resolved 1979) Status post partial mastectomy (Resolved 2011) Status post tubal ligation (Resolved 1974) Family History Brother Age: 84 Heart disease Mental health problem Primary progressive aphasia Brother Age: 70 DVT (deep venous thrombosis) Diabetes mellitus Back problem Joint problem Father Cancer Hodgkin's disease Grandfather Heart disease Heart attack Grandmother Stroke Grandfather Cancer Grandmother Stroke Breast cancer Mother Ovarian cancer Sister Brain aneurysm Sister No problems noted. Social History marital status: number of children: 2 household members: spouse lives independently: Yes caregiver/support person: No housing: house pets and animals: No education level: college occupational status: previously employed current occupational exposures/hazards: No mindy/congregational: [employer] special mindy needs: No travel history: recent (December 2017) leisure activities: exercise, reading and other other: traveling seatbelt use: always helmet use: Yes water heater temp set < 120 deg: Yes working smoke detector in home: Yes fire extinguisher in home: No carbon monox detector in home: No firearms in home: Yes firearms unloaded and locked: Yes do you feel safe at home: Yes Smoking Status: Never smoker second hand exposure: No alcohol intake: never substance use type: does not use during the past year weight has: remained stable well-balanced diet: about half the time daily servings fruits/ve-4 caffeine: Yes eating out: 1-3 times/week Type(s) of exercise: walking frequency: daily duration: 15-30 minutes/day Smoking Status: Never smoker Substance Use Type: does not use Exam Narrative Exam Narrative: GEN: AOx3 and in mild distress. GCS 15 EYES: Pupils are equal, round, and reactive to light and accommodation. Extraoccular muscles are intact bilaterally. There is no subconjunctival hemorrhage or exudate. CHEST: Lungs are clear to auscultation bilaterally and free of wheezes, rales, or rhonchi. Heart rate is regular rhythm, there are no murmurs, clicks, rubs, or gallops. There is no chest wall tenderness. ABD: Abdomen is soft and nontender. There is no guarding or rebound. Bowel sounds are normal in all 4 quadrants. There is no mass or organomegaly. EXT: Full but painful range of motion of right hand with ecchymosis and tenderness to palpation overlying 5th metacarpal. Closed, isolated a neurovascularly intact. Tenderness to palpation of R hamstrings, but no ana maria tenderness. No swelling or redness. SKIN: Warm, pink, and dry. No erythema or rash Initial Vital Signs Initial Vital Signs: Vital Signs Temperature 98.3 F 12/13/19 17:00 Pulse Rate 74 12/13/19 17:00 Respiratory Rate 14 12/13/19 17:00 Blood Pressure 173/71 H 12/13/19 17:00 Pulse Oximetry 97 12/13/19 17:00 Procedures Orthopedic Splinting/Casting Injury #1: Side: right Upper Extremity Injury Location: wrist Upper Extremity Immobilizer: ulnar gutter Post splinting neuro exam: intact Post splinting vascular exam: intact Placed by: Nursing Course Orders Ordered: ED Orders 12/13/19 17:04 XR wrist RT min 3V Stat Vital Signs Vital signs: Vital Signs - 8 hr 12/13/19 18:32 Pulse Rate 69 Respiratory Rate 16 Blood Pressure [Left Arm] 188/77 H Pulse Oximetry 98 MDM - Fall Imaging Data Extremity x-ray #1: Radiologist's Impression: [address] [address] XRay Report Signed Patient: Talya Crocker RMR#: [id number] : 7Acct:[id number] Age/Sex: 74 / FDate of Service: 12/13/19 Loc: ED Accession Number: [id number] Procedure: XR wrist RT min 3V Ordering Provider: Mickey Pozo D.O. PROCEDURE: XR WRIST RT MIN 3V INDICATIONS: fall TECHNIQUE: 4 views of the wrist were acquired. COMPARISON: None. FINDINGS: Bones: There is a mildly displaced fracture at the base of the fifth metacarpal. Prominent first CMC degenerative narrowing is present. Scaphoid view: No scaphoid fracture. Soft tissues: No suspicious soft tissue calcifications. IMPRESSION: Mildly displaced fifth metacarpal base fracture. Dictated by: Ophelia Fu M.D. on 12/13/2019 at 17:34 Approved by: Ophelia Fu M.D. on 12/13/2019 at 17:35 Discharge Plan Departure Patient Disposition: Home Clinical Impression: Fracture of fifth metacarpal bone Qualifiers: Encounter type: initial encounter Fracture type: closed Metacarpal location: base Fracture alignment: nondisplaced Laterality: right Qualified Code(s): S62.346A - Nondisplaced fracture of base of fifth metacarpal bone, right hand, initial encounter for closed fracture Abrasion of lip Qualifiers: Encounter type: initial encounter Qualified Code(s): S00.511A - Abrasion of lip, initial encounter Right hamstring muscle strain Qualifiers: Encounter type: initial encounter Qualified Code(s): S76.311A - Strain of muscle, fascia and tendon of the posterior muscle group at thigh level, right thigh, initial encounter Discharge Date/Time: 12/13/19 18:48 Instructions: How to Prevent Falls Activity Restrictions/Additional Instructions: *You have been diagnosed with [warm right 5th metacarpal base fracture, lip abrasion and likely right hamstring strain] *What to do: *Take medications as directed *Follow up with [facility] in 2-3 days, call for an appointment. Let them know you were seen in the Emergency Department and that we ask that you be seen in follow up *Return to ER if you should have any new, worsening or concerning symptoms Prescriptions: No Action aspirin 81 mg tablet,delayed release (DR/EC) 81 mg PO DAILY RF: 0 Hold Instructions: bleeding multivitamin Capsule 1 cap PO DAILY Qty: 0 RF: 0 Ca-D3-mag [id number]-ttc-jaun-bor [Calcium 600-D3 Plus (mag-zinc)] 600 mg calcium- 800 unit-50 mg Tablet 1 tab PO BID Qty: 0 RF: 0 melatonin 5 MG tablet 5 mg PO HS Qty: 0 RF: 0 eszopiclone 2 mg tablet 0.5 mg PO BEDTIME PRN (Reason: insomnia) Qty: 30 RF: 3 simvastatin 40 mg tablet 40 mg PO BEDTIME Qty: 90 RF: 1 fenofibrate 160 mg tablet 160 mg PO BEDTIME Qty: 90 RF: 1 alendronate 70 mg tablet 70 mg PO QWEEK 90 Days Qty: 12 RF: 0 trazodone 50 mg tablet 50 mg PO BEDTIME RF: 0 amoxicillin-pot clavulanate [Augmentin] 875-125 mg tablet 1 tab PO BID RF: 0 Referrals: Vania Alberto MD [Physician] - Fidelia Castro MD [Primary Care Provider] -
== END 2019-12-13 18:48 | disposition home or self-care (01) ==
PROVIDERS: Emergency Provider Emergency Medicine; PCP Family Medicine
DX: S62.346A Nondisplaced fracture of base of fifth metacarpal bone, right hand, initial encounter for closed fracture (principal); S00.511A Abrasion of lip, initial encounter; S76.311A Strain of muscle, fascia and tendon of the posterior muscle group at thigh level, right thigh, initial encounter; W18.30XA Fall on same level, unspecified, initial encounter
CPT/HCPCS: 29125; 73110; 99283

== ENCOUNTER → 2020-01-10 13:04 | Outpatient (CLI) | payer MEDICARE, SELFPAY ==
[2019-07-04 11:53] VITALS: BMI 26.9
== END ==
PROVIDERS: PCP Family Medicine; Referring Provider Family Medicine; Visit Provider Family Medicine
DX: Z13.820 Encounter for screening for osteoporosis (principal); M85.852 Other specified disorders of bone density and structure, left thigh; Z78.0 Asymptomatic menopausal state; Z85.3 Personal history of malignant neoplasm of breast
CPT/HCPCS: 77080

== ENCOUNTER → 2020-02-21 10:59 | Outpatient (CLI) | payer MEDICARE, SELFPAY ==
[2019-07-04 11:53] VITALS: BMI 26.9
--- NOTE | 2020-02-21 | DI.MRI.S_ITS ---
PROCEDURE: MR SHOULDER RT WO CON INDICATIONS: Pain in right shoulder TECHNIQUE: Noncontrast oblique coronal T2 fast spin echo with fat saturation, oblique sagittal T1 spin echo and T2 fast spin echo with fat saturation, axial T1 spin echo and T2 fast spin echo with fat saturation through the shoulder. COMPARISON: [facility] [place], [place], XR SHOULDER 2+ VIEWS RIGHT, 02/08/2020, 14:31. FINDINGS: Image quality: Excellent. Rotator cuff: Large full-thickness tear involving the supraspinatus tendon and possibly the anterior fibers of the infraspinatus, measuring approximately 3.8 cm in the AP dimension as seen on sagittal pulse sequences. Infraspinatus tendinopathy is present. Teres minor tendon appears intact. Subscapularis appears minimally thickened in keeping with low-grade tendinopathy. Severe atrophy of the supraspinatus muscle is present. There is mild fatty infiltration of the infraspinatus. Bones and bursae: No bone marrow contusions or fractures. Moderate acromioclavicular joint degeneration. Glenohumeral joint degeneration also noted. Acromion demonstrates conventional anatomy, without an os acromiale. Moderate joint effusion Capsule and soft tissues: Labrum: Frayed appearance of the superior labrum which could be age appropriate. Incidental sublabral foramen. Mildly blunted appearance of the posterior labrum.. Long head of the biceps tendon intact. The rotator interval appears normal, without fibrosis. Coracohumeral ligament intact. IMPRESSION: Large full-thickness tear involving the supraspinatus tendon, and possibly anterior fibers of the infraspinatus. Severe atrophy of the supraspinatus muscle Degenerative joint disease Moderate joint effusion Fraying of the superior and posterior labral segments, possibly age-appropriate degeneration versus remote chronic tear Dictated by: Brendan Borja M.D. on 02/21/2020 at 13:03 Approved by: Brendan Borja M.D. on 02/21/2020 at 13:09
== END ==
PROVIDERS: PCP Family Medicine; Referring Provider Orthopaedic Surgery; Visit Provider Orthopaedic Surgery
DX: M25.511 Pain in right shoulder (principal); M75.121 Complete rotator cuff tear or rupture of right shoulder, not specified as traumatic; M19.011 Primary osteoarthritis, right shoulder; M25.411 Effusion, right shoulder
CPT/HCPCS: 73221

== ENCOUNTER → 2020-04-03 09:59 | Outpatient (CLI) | payer MEDICARE, SELFPAY ==
[2019-07-04 11:53] VITALS: BMI 26.9
[2020-04-03 10:30] LABS: Alanine Aminotransferase 22 IU/L (<35); Albumin 4.5 g/dL (3.5-5.0); Alkaline Phosphatase 51 U/L (38-126); Aspartate Aminotransferase 35 IU/L (14-36); BUN Creatinine Ratio 28.4 (6-22); Bilirubin Total 0.5 mg/dL (0.2-1.3); Blood Urea Nitrogen 31 mg/dL (7-17); Calcium 10.1 mg/dL (8.4-10.2); Carbon Dioxide 29 mmol/L (22-32); Chloride 102 mmol/L (98-107); Cholesterol 165 mg/dL (140-199); Estimated Glomerular Filt Rate 49.2 mL/min (>60); Globulin 2.3 g/dL (1.7-4.1); Glucose 95 mg/dL (80-110); HDL Cholesterol 71 mg/dL (40-60); HEMOLYSIS < 15 (0-50); LDL Cholesterol Calculated 73 mg/dL (<100); Potassium 4.9 mmol/L (3.4-5.1); Sodium 138 mmol/L (137-145); Total Protein 6.8 g/dL (6.3-8.2); Triglycerides 105 mg/dL (35-150)
[2020-04-03 19:56] LABS: Creatinine Urine Random 80.5 mg/dL
[2020-04-03 20:01] LABS: Microalbumin Urine Random < 0.6 mg/dL (0-1.6)
== END ==
PROVIDERS: PCP Family Medicine; Referring Provider Family Medicine; Visit Provider Family Medicine
DX: E78.5 Hyperlipidemia, unspecified (principal); I10 Essential (primary) hypertension
CPT/HCPCS: 36415; 80053; 80061; 82043; 82570

== ENCOUNTER → 2020-05-05 08:48 | Outpatient (CLI) | payer MEDICARE, SELFPAY ==
[2019-07-04 11:53] VITALS: BMI 26.9
[2020-05-06 10:33] LABS: COVID19 Sendout Not Detected (Not Detect)
== END ==
PROVIDERS: PCP Family Medicine; Visit Provider Physician Assistant
DX: Z11.59 Encounter for screening for other viral diseases (principal)
CPT/HCPCS: 87635

== ENCOUNTER → 2020-06-09 12:55 | Outpatient (CLI) | payer MEDICARE, SELFPAY ==
[2020-05-26 09:03] VITALS: BMI 26.9
[2020-06-09 14:01] LABS: BUN Creatinine Ratio 22.7 (6-22); Blood Urea Nitrogen 29 mg/dL (7-17); Calcium 9.9 mg/dL (8.4-10.2); Carbon Dioxide 29 mmol/L (22-32); Chloride 104 mmol/L (98-107); Estimated Glomerular Filt Rate 40.9 mL/min (>60); Glucose 104 mg/dL (80-110); HEMOLYSIS < 15 (0-50); Potassium 4.3 mmol/L (3.4-5.1); Sodium 141 mmol/L (137-145)
== END ==
PROVIDERS: PCP Family Medicine; Referring Provider Family Medicine; Visit Provider Family Medicine
DX: I10 Essential (primary) hypertension (principal)
CPT/HCPCS: 36415; 80048

== ENCOUNTER → 2020-07-09 12:55 | Outpatient (CLI) | payer MEDICARE, SELFPAY ==
[2020-05-26 09:03] VITALS: BMI 26.9
[2020-07-09 14:00] LABS: BUN Creatinine Ratio 22.9 (6-22); Blood Urea Nitrogen 25 mg/dL (7-17); Calcium 9.9 mg/dL (8.4-10.2); Carbon Dioxide 31 mmol/L (22-32); Chloride 102 mmol/L (98-107); Estimated Glomerular Filt Rate 49.2 mL/min (>60); Glucose 102 mg/dL (80-110); HEMOLYSIS < 15 (0-50); Potassium 4.5 mmol/L (3.4-5.1); Sodium 137 mmol/L (137-145)
== END ==
PROVIDERS: PCP Family Medicine; Referring Provider Family Medicine; Visit Provider Family Medicine
DX: R79.89 Other specified abnormal findings of blood chemistry (principal)
CPT/HCPCS: 36415; 80048

== ENCOUNTER 2020-08-03 17:19 | Observation (INO) | payer MEDICARE, SELFPAY ==
[2020-05-26 09:03] VITALS: BMI 26.9
[2020-08-03] VITALS (11 sets, daily range): BP systolic 137–184; BP diastolic 61–100; PULSE 61–72; RESP 17–25; TEMP 36.5–36.6; O2SAT 96–100; BMI 29.5
--- NOTE | 2020-08-03 17:41 | DI.CT.S_ITS ---
PROCEDURE: CT HEAD/BRAIN WO CON INDICATIONS: code stroke TECHNIQUE: Noncontrast 4.5 mm thick angled axial sections acquired from the foramen magnum to the vertex, with coronal and sagittal reformats. For radiation dose reduction, the following was used: automated exposure control, adjustment of mA and/or kV according to patient size. COMPARISON: [facility], CT, CT HEAD/BRAIN WO CON, 04/16/2019, 9:33. FINDINGS: Image quality: Excellent. CSF spaces: Basal cisterns are patent. No extra-axial fluid collections. The ventricles are symmetric in size and shape. Brain: No intracranial bleeds or masses. Ill-defined hypodensity in left temporal lobe is seen which may represent age indeterminate infarction. There is cerebral volume loss for age, with resultant ventricular and sulcal prominence. There are periventricular and deep white matter chronic small vessel ischemic changes. There is intracranial internal carotid artery atherosclerosis. Skull and face: Calvarium and visualized facial bones appear intact, without suspicious lesions. Sinuses: Visualized sinuses and mastoids are clear. IMPRESSION: 1. No CT evidence of acute intracranial bleed, midline shift or mass effect. 2. Questionable increased hypodensity within left temporal lobe which may be due to artifacts and chronic white matter small vessel ischemic changes. Age indeterminate small infarct in this area cannot be excluded. Dictated by: Thom Simon M.D. on 08/03/2020 at 17:55 Approved by: Thom Simon M.D. on 08/03/2020 at 18:00
--- NOTE | 2020-08-03 17:55 | DI.RAD.S_ITS ---
PROCEDURE: XR CHEST 1V INDICATIONS: Possible stroke TECHNIQUE: One view of the chest was acquired. COMPARISON: [facility], , CHEST 2 VIEW, 04/09/2014, 11:39. FINDINGS: Surgical changes and devices: None. Lungs and pleura: Lungs are clear. No pleural effusions or pneumothorax. Mediastinum: Mediastinal contours appear normal. Heart size is normal. Bones and chest wall: No suspicious bony lesions. Overlying soft tissues appear unremarkable. IMPRESSION: No acute cardiopulmonary pathology. Dictated by: Thom Simon M.D. on 08/03/2020 at 18:21 Approved by: Thom Simon M.D. on 08/03/2020 at 18:21
[2020-08-03 18:12] LABS: Add Manual Diff / Slide Review NO; Basophils Absolute Auto 100 /uL (0-100); Basophils Percent Auto 0.9 % (0-2); Eosinophils Absolute Auto 200 /uL (0-450); Eosinophils Percent Auto 2.4 % (2-4); Hemoglobin 12.5 g/dL (12.0-16.0); Lymphocytes Absolute Auto 1000 /uL (1100-4500); Lymphocytes Percent Auto 16.2 % (25-40); Mean Corpuscular HGB Conc 33.7 % (30-36); Mean Corpuscular Volume 91.9 fL (80-100); Monocytes Absolute Auto 600 /uL (0-900); Monocytes Percent Auto 9.2 % (3-14); Neutrophils Absolute Auto 4500 /uL (1500-7000); Neutrophils Percent Auto 71.3 % (50-75); Platelet Count 299 X10^3/uL (150-400); Red Blood Cell Count 4.02 X10^6/uL (4.0-5.2); Red Cell Distribution Width 15.1 % (11.6-14.8); White Blood Cell Count 6.3 X10^3/uL (4.5-11.0)
[2020-08-03 18:18] LABS: INR 0.9 (0.9-1.3); Prothrombin Time 10.5 SECONDS (10.1-12.7)
[2020-08-03 18:20] LABS: PTT Partial Thromboplastin Tim 35 SECONDS (26.4-36.2)
[2020-08-03 18:23] LABS: Alanine Aminotransferase 23 IU/L (<35); Albumin 4.5 g/dL (3.5-5.0); Albumin Globulin Ratio 1.9 (1.0-2.8); Alkaline Phosphatase 64 U/L (38-126); Aspartate Aminotransferase 37 IU/L (14-36); BUN Creatinine Ratio 25.9 (6-22); Bilirubin Total 0.3 mg/dL (0.2-1.3); Blood Urea Nitrogen 28 mg/dL (7-17); Calcium 10.2 mg/dL (8.4-10.2); Carbon Dioxide 28 mmol/L (22-32); Chloride 106 mmol/L (98-107); Creatine Kinase 61 U/L (30-135); Estimated Glomerular Filt Rate 49.7 mL/min (>60); Globulin 2.4 g/dL (1.7-4.1); Glucose 97 mg/dL (80-110); HEMOLYSIS < 15 (0-50); Potassium 4.1 mmol/L (3.4-5.1); Sodium 138 mmol/L (137-145); Total Protein 6.9 g/dL (6.3-8.2)
--- NOTE | 2020-08-03 18:25 | ED.HA ---
HPI - Headache General Chief Complaint: Headache Stated Complaint: wondering if she had a mini stroke//had several sy Time Seen by Provider: 08/03/20 18:06 Source: patient Mode of arrival: Ambulatory Limitations: no limitations History of Present Illness HPI Narrative: Patient is a 74-year-old female who arrives the emergency department greater than 5 hours after the onset of her symptoms. Code stroke was called in triage secondary to her presenting diagnosis. Patient states that just after noon she was standing in her home where she states she became suddenly unsteady on her feet. It was somewhat difficult for her to describe the exact symptoms she was having. She did not describe a room spinning sensation. She stated that she felt like her legs were just going to go out from underneath her. She was able to make it to a chair and sit down. She did not fall. Did not hit her head. Did not chest pain or shortness of breath or palpitations nausea vomiting at the time. She states that she has been told that she may have had a minor stroke in the past but has no residual deficits from it. After sitting in the chair for. Time she was able to lay down and her symptoms did seem to improve. She did develop a frontal headache which has improved since its onset but has been persistent since the event. Patient not on anticoagulation. Related Data Home Medications Medication Instructions Recorded Confirmed Ca-D3-mag tf-aevn-gnq-jaun-bor 1 tab PO BID #0 02/19/11 08/03/20 [Calcium 600-D3 Plus (mag-zinc)] multivitamin 1 cap PO DAILY #0 02/19/11 08/03/20 melatonin 5 mg PO HS #0 10/21/12 08/03/20 alendronate 70 mg tablet 70 mg PO QWEEK 90 Days #12 tab 01/04/18 08/03/20 aspirin 81 mg tablet,delayed 81 mg PO DAILY tab 01/03/19 08/03/20 release Previous Rx's Medication Instructions Recorded fenofibrate 160 mg tablet 160 mg PO DAILY #90 tab 04/10/20 simvastatin 40 mg tablet 40 mg PO BEDTIME #90 tab 04/10/20 trazodone 50 mg tablet See Rx Instructions .ROUTE 07/08/20 .COMPLEX #90 tab lisinopril 5 mg tablet 5 mg PO DAILY #90 tab 07/14/20 eszopiclone 1 mg tablet See Rx Instructions .ROUTE 07/21/20 .COMPLEX #30 tab Allergies Allergy/AdvReac Type Severity Reaction Status Date / Time No Known Drug Allergies Allergy Verified 04/09/20 10:19 Review of Systems Constitutional Constitutional: Denies fatigue, Denies fever(s), Denies frequent falls, Reports headache(s) and Denies weakness Eyes Eyes: Denies blurry vision, Denies change in vision and Denies diplopia ENT Ears, Nose, Mouth, and Throat: Denies vertigo, Reports dizziness, Reports headache(s), Reports disequilibrium and Denies sore throat Cardiovascular Cardiovascular: Denies chest pain, Denies syncope, Denies rapid heart rate, Denies lightheadedness and Denies dyspnea Respiratory Respiratory: Denies cough and Denies dyspnea Gastrointestinal Gastrointestinal: Denies abdominal pain, Denies nausea and Denies vomiting Genitourinary Genitourinary: Denies dysuria Genitourinary: Denies dysuria Musculoskeletal Musculoskeletal: Denies arthralgias, Denies myalgias and Denies tingling Integumentary/Breasts Skin/Breast: Denies lesions and Denies rash Neurologic Neurologic: Denies abnormal movements, Denies abnormal speech, Denies behavioral changes, Denies confusion, Denies vertigo, Reports dizziness, Denies syncope, Denies frequent falls, Reports headache(s), Denies convulsions, Denies tingling, Reports disequilibrium and Denies weakness Psychiatric Psychiatric: Denies behavioral changes and Denies confusion Endocrine Endocrine: Denies fatigue Hematologic/Lymphatic On Anticoagulants: No Allergic/Immunologic Allergic/Immunologic: Denies urticaria Patient History Medical History Benign paroxysmal vertigo Breast cancer (2011) Cataracts, bilateral (2011) Chicken pox (1954) Chronic kidney disease Concussion (~05/2017) Degenerative arthritis of right knee Fracture (1959) History of heavy periods (1974) Hyperlipidemia Hypertension (2007) Infection, Pseudomonas Infertility (1967) Insomnia Kidney disease (2009) Measles (1954) Migraines (1984) Osteoarthritis (2012) Osteopenia (2009) Ovarian cyst (1967) Primary osteoarthritis of both knees Stroke (Unknown) Surgical menopause Vertigo (2014) Surgical History Anesthesia complication H/O right knee surgery History of arthroplasty of right knee (06/21/19) History of cataract removal with insertion of prosthetic lens (2014) History of cataract removal with insertion of prosthetic lens (2014) History of colonoscopy History of dacryocystorhinostomy (2013) History of eye surgery (5) History of eye surgery History of hysterectomy History of left oophorectomy History of non-cataract eye surgery (2015) History of non-cataract eye surgery (2016) History of non-cataract eye surgery (2016) History of non-cataract eye surgery (2015) History of oophorectomy, unilateral (1967) History of oophorectomy, unilateral (2005) History of right oophorectomy Status post arthroscopy (2014) Status post breast biopsy (1989) Status post hysterectomy (1979) Status post partial mastectomy (2011) Status post tubal ligation (1974) Family History Brother Age: 84 Heart disease Mental health problem Primary progressive aphasia Brother Age: 70 DVT (deep venous thrombosis) Diabetes mellitus Back problem Joint problem Father Cancer Hodgkin's disease Grandfather Heart disease Heart attack Grandmother Stroke Grandfather Cancer Grandmother Stroke Breast cancer Mother Ovarian cancer Sister Brain aneurysm Sister No problems noted. Family/Other Sleep apnea Restless leg Obesity Hypertension Diabetes mellitus Heart disease Dementia Social History marital status: number of children: 2 household members: spouse lives independently: Yes caregiver/support person: No housing: house pets and animals: No education level: college occupational status: previously employed current occupational exposures/hazards: No mindy/confucianist: Rastafari special mindy needs: No travel history: recent leisure activities: exercise, reading and other other: traveling seatbelt use: always helmet use: Yes water heater temp set < 120 deg: Yes working smoke detector in home: Yes fire extinguisher in home: No carbon monox detector in home: No firearms in home: Yes firearms unloaded and locked: Yes do you feel safe at home: Yes Smoking Status: Never smoker second hand exposure: No alcohol intake: never substance use type: does not use during the past year weight has: remained stable well-balanced diet: about half the time daily servings fruits/ve-4 caffeine: Yes eating out: 1-3 times/week Type(s) of exercise: walking frequency: daily duration: 15-30 minutes/day Smoking Status: Never smoker Substance Use Type: does not use Exam Initial Vital Signs Initial Vital Signs: Vital Signs Temperature 97.9 F 08/03/20 17:35 Pulse Rate 68 08/03/20 17:35 Respiratory Rate 22 08/03/20 17:35 Blood Pressure 184/75 H 08/03/20 17:35 Pulse Oximetry 98 08/03/20 17:35 Const General: cooperative, comfortable and well developed Limitations: mental status not altered HENMT Head: normal to inspection and normocephalic Nose: external nose normal Face and sinus: normal facial exam Mouth: oral mucosae normal Eyes Eyelids: eyelids normal Pupils: PERRL Other: Patient unable to look laterally with her right eye. She states that this is not new. Is secondary to scar tissue from prior surgeries. Resp Effort & Inspection: normal respiratory effort Auscultation: clear to auscultation bilaterally Cardio Rate: regular rate Rhythm: regular rhythm GI Inspection: non-distended Palpation: soft Skin Lesions: no lesions Rashes: no rashes Neuro General: patient alert, patient awake and patient oriented x3 Cognition: normal cognition Speech: speech normal Gait: normal gait Motor: muscle tone normal throughout Sensory Exam: no sensory deficits noted Coordination: dkffvl-hp-ndbl test normal Extrem General: normal to inspection and capillary refill normal Psych Appearance: grossly normal and well kempt Scores GCS [place] coma scale eye opening: Spontaneous [place] coma scale verbal response: Orientated [place] coma scale motor response: Obey commands [place] coma scale total score: 15 NIH Stroke Scale Level of Conciousness: Alert, keenly responsive Ask month/age: Answers both questions correctly. Open/close eyes, close hand: Performs both tasks correctly Best gaze horizontal: Normal Visual uriarte: No visual loss Facial palsy: Normal symetrical movement Left arm drift: No drift for full 10 sec Right arm drift: No drift for full 10 sec Left leg drift: No drift for full 5 sec Right leg drift: No drift for full 5 sec Limb ataxia: Absent Sensory on face/arms/legs: Normal, no sensory loss Best language: No aphasia, normal Dysarthria: Normal Extinction or inattention: No abnormality Total NIH Stroke scale score: 0 Course Orders Ordered: Acetaminophen (Acetaminophen 325 Mg Tablet) 650 mg PO Q6HR PRN PRN Reason: Fever/Mild Pain (1-3) Last Admin: 08/03/20 23:49 Dose: 650 mg Documented by: BRYAN Hydrocodone Bitart/Acetaminophen (Hydrocodone/Acet 5/325 Tablet) 1 tab PO Q4HR PRN PRN Reason: Pain, Moderate (4-6) Aspirin (Aspirin Ec 81 Mg Tablet) 324 mg PO DAILY [facility] Enoxaparin Sodium (Enoxaparin 40 Mg/0.4 Ml Syringe) 40 mg SUBCUT DAILY [facility] Ibuprofen (Ibuprofen 600 Mg Tablet) 600 mg PO Q6HR PRN PRN Reason: Fever/Mild Pain (1-3) Lisinopril (Lisinopril 5 Mg Tablet) 5 mg PO DAILY [facility] Melatonin (Melatonin 3 Mg Tablet) 6 mg PO BEDTIME [facility] Ondansetron HCl (Ondansetron 4 Mg/2 Ml Inj) 4 mg IV Q8HR PRN PRN Reason: Nausea And Vomiting Simvastatin (Simvastatin 40 Mg Tablet) 40 mg PO BEDTIME [facility] Last Admin: 08/03/20 21:44 Dose: 40 mg Documented by: TASHA Sodium Chloride (Sodium Chloride 0.9% Flush) 10 ml IV BID [facility] Sodium Chloride (Sodium Chloride 0.9% Flush) 10 ml IV PRN PRN PRN Reason: Flush Trazodone HCl (Trazodone 50 Mg Tablet) 50 mg PO BEDTIME [facility] Last Admin: 08/03/20 21:44 Dose: 50 mg Documented by: TASHA Discontinued Medications Melatonin (Melatonin 3 Mg Tablet) 6 mg PO BEDTIME ONE Stop: 08/04/20 00:16 Last Admin: 08/04/20 00:21 Dose: 6 mg Documented by: BRYAN Non-Formulary Medication (Melatonin) 5 mg PO BEDTIME [facility] Last Admin: 08/04/20 00:14 Dose: Not Given Documented by: BRYAN Vital Signs Vital signs: Vital Signs - 8 hr 08/03/20 19:30 08/03/20 20:00 Pulse Rate 61 65 Respiratory Rate 24 24 Blood Pressure 137/61 Pulse Oximetry 99 98 MDM - Headache Medical Records Attestation: I reviewed the patient's medical records. Lab Data Attestation: I reviewed the patient's lab results. Result diagrams: 08/03/20 18:00 08/03/20 18:00 Labs: Lab Results 08/03/20 08/03/20 08/03/20 Range/Units 18:00 18:00 18:00 WBC 6.3 (4.5-11.0) X10^3/uL RBC 4.02 (4.0-5.2) X10^6/uL Hgb 12.5 (12.0-16.0) g/dL Hct 37.0 (36-46) % MCV 91.9 (80-100) fL MCH 31.0 (26-34) PG MCHC 33.7 (30-36) % RDW 15.1 H (11.6-14.8) % Plt Count 299 (150-400) X10^3/uL Neut % (Auto) 71.3 (50-75) % Lymph % (Auto) 16.2 L (25-40) % [place] % (Auto) 9.2 (3-14) % Eos % (Auto) 2.4 (2-4) % Baso % (Auto) 0.9 (0-2) % Neut # (Auto) 4500 (9168-6767) /uL Lymph # (Auto) 1000 L (0846-5560) /uL [place] # (Auto) 600 (0-900) /uL Eos # (Auto) 200 (0-450) /uL Baso # (Auto) 100 (0-100) /uL PT 10.5 (10.1-12.7) SECONDS INR 0.9 (0.9-1.3) APTT 35 (26.4-36.2) SECONDS Sodium 138 (137-145) mmol/L Potassium 4.1 (3.4-5.1) mmol/L Chloride 106 (98-107) mmol/L Carbon Dioxide 28 (22-32) mmol/L BUN 28 H (7-17) mg/dL Creatinine 1.08 H (0.52-1.04) mg/dL Estimated GFR 49.7 L (>60) mL/min BUN/Creatinine Ratio 25.9 H (6-22) Glucose 97 (80-110) mg/dL Calcium 10.2 (8.4-10.2) mg/dL Total Bilirubin 0.3 (0.2-1.3) mg/dL AST 37 H (14-36) IU/L ALT 23 (<35) IU/L Alkaline Phosphatase 64 (38-126) U/L Total Creatine Kinase 61 (30-135) U/L CK-MB (CK-2) TNP CK-MB (CK-2) Rel Index TNP Troponin I < 0.012 (0.01-0.034) ng/mL Total Protein 6.9 (6.3-8.2) g/dL Albumin 4.5 (3.5-5.0) g/dL Globulin 2.4 (1.7-4.1) g/dL Albumin/Globulin Ratio 1.9 (1.0-2.8) SARS-CoV-2 (PCR) (Negative) 08/03/20 Range/Units 18:12 WBC (4.5-11.0) X10^3/uL RBC (4.0-5.2) X10^6/uL Hgb (12.0-16.0) g/dL Hct (36-46) % MCV (80-100) fL MCH (26-34) PG MCHC (30-36) % RDW (11.6-14.8) % Plt Count (150-400) X10^3/uL Neut % (Auto) (50-75) % Lymph % (Auto) (25-40) % [place] % (Auto) (3-14) % Eos % (Auto) (2-4) % Baso % (Auto) (0-2) % Neut # (Auto) (8763-5020) /uL Lymph # (Auto) (2005-9329) /uL [place] # (Auto) (0-900) /uL Eos # (Auto) (0-450) /uL Baso # (Auto) (0-100) /uL PT (10.1-12.7) SECONDS INR (0.9-1.3) APTT (26.4-36.2) SECONDS Sodium (137-145) mmol/L Potassium (3.4-5.1) mmol/L Chloride (98-107) mmol/L Carbon Dioxide (22-32) mmol/L BUN (7-17) mg/dL Creatinine (0.52-1.04) mg/dL Estimated GFR (>60) mL/min BUN/Creatinine Ratio (6-22) Glucose (80-110) mg/dL Calcium (8.4-10.2) mg/dL Total Bilirubin (0.2-1.3) mg/dL AST (14-36) IU/L ALT (<35) IU/L Alkaline Phosphatase (38-126) U/L Total Creatine Kinase (30-135) U/L CK-MB (CK-2) CK-MB (CK-2) Rel Index Troponin I (0.01-0.034) ng/mL Total Protein (6.3-8.2) g/dL Albumin (3.5-5.0) g/dL Globulin (1.7-4.1) g/dL Albumin/Globulin Ratio (1.0-2.8) SARS-CoV-2 (PCR) Negative (Negative) Imaging Data CT scan - head: Radiologist's Impression: [address] [id number] Scan ReportSigned Patient: Talya Crocker RMR#: [id number]: 7Acct:[id number]/Sex: 74 / FDate of Service: 08/03/20Loc: EDAccession Number: [id number] Procedure: CT head/brain wo con Ordering Provider: Joseline Carrasco D.O. PROCEDURE: CT HEAD/BRAIN WO CON INDICATIONS: code stroke TECHNIQUE: Noncontrast 4.5 mm thick angled axial sections acquired from the foramen magnum to the vertex, with coronal and sagittal reformats. For radiation dose reduction, the following was used: automated exposure control, adjustment of mA and/or kV according to patient size. COMPARISON: [facility], CT, CT HEAD/BRAIN WO CON, 04/16/2019, 9:33. FINDINGS: Image quality: Excellent. CSF spaces: Basal cisterns are patent. No extra-axial fluid collections. The ventricles are symmetric in size and shape. Brain: No intracranial bleeds or masses. Ill-defined hypodensity in left temporal lobe is seen which may represent age indeterminate infarction. There is cerebral volume loss for age, with resultant ventricular and sulcal prominence. There are periventricular and deep white matter chronic small vessel ischemic changes. There is intracranial internal carotid artery atherosclerosis. Skull and face: Calvarium and visualized facial bones appear intact, without suspicious lesions. Sinuses: Visualized sinuses and mastoids are clear. IMPRESSION: 1. No CT evidence of acute intracranial bleed, midline shift or mass effect. 2. Questionable increased hypodensity within left temporal lobe which may be due to artifacts and chronic white matter small vessel ischemic changes. Age indeterminate small infarct in this area cannot be excluded. Dictated by: Thom Simon M.D. on 08/03/2020 at 17:55 Approved by: Thom Simon M.D. on 08/03/2020 at 18:00 Chest x-ray: Radiologist's Impression: [address] [id number] ReportSigned Patient: Talya Crocker RMR#: [id number]: 7Acct:[id number]/Sex: 74 / FDate of Service: 08/03/20Loc: EDAccession Number: [id number] Procedure: XR chest 1V Ordering Provider: Joseline Carrasco D.O. PROCEDURE: XR CHEST 1V INDICATIONS: Possible stroke TECHNIQUE: One view of the chest was acquired. COMPARISON: [facility], CHEST 2 VIEW, 04/09/2014, 11:39. FINDINGS: Surgical changes and devices: None. Lungs and pleura: Lungs are clear. No pleural effusions or pneumothorax. Mediastinum: Mediastinal contours appear normal. Heart size is normal. Bones and chest wall: No suspicious bony lesions. Overlying soft tissues appear unremarkable. IMPRESSION: No acute cardiopulmonary pathology. Dictated by: Thom Simon M.D. on 08/03/2020 at 18:21 Approved by: Thom Simon M.D. on 08/03/2020 at 18:21 ECG Data Attestation: I personally reviewed and interpreted this ECG as follows: Prior ECG tracings: not available for review Interpretation: Sinus rhythm Ventricular rate 62 Normal axis Normal QRS Normal QTC No ST T MDM Narrative Medical decision making narrative: Patient's only physical exam abnormality the is the inability to look laterally with her right eye. This is not new for her. Otherwise NIH score is 0. Her EKG is unremarkable. Her head CT shows no acute bleed however does have a questionable hypodensity within the left temporal lobe. Her headache has improved is not resolved since its onset. She is outside the window for tPA as she arrived in the emergency department greater than 4-1/2 hours from the onset of her symptoms. Discussed the case with Dr. Lenz who is on-call for the patient's primary provider. Will admit for further evaluation and treatment for concern of potential CVA given the CT scan findings. I did discuss this with the patient who expressed understanding and agreement. Critical Care Time Critical Care Time Critical Care Time: Yes Total Critical Care Time: 35 Attestation: The high probability of a clinically significant, sudden or life threatening deterioration of the neurologic system(s) required my full and direct attention, intervention and personal management. The aggregate critical care time was 35 minutes. This time is in addition to time spent performing reported procedures but includes the following: [X] Data Review and interpretation [X] Patient assessment and monitoring of vital signs [X] Documentation [X] Medication orders and management Discharge Plan Departure Patient Disposition: Admitted as Observation Clinical Impression: Lightheadedness, Hypertension, CVA (cerebral vascular accident) Admit Date/Time: 08/03/20 20:06 Admit Provider: Davis Lenz
--- NOTE | 2020-08-03 18:32 | PC.NURSE ---
pt states she took tylenol before she came in this evening.
[2020-08-03 18:35] LABS: Troponin I < 0.012 ng/mL (0.01-0.034)
[2020-08-03 18:52] LABS: COVID19 -Nasal RAPID Negative (Negative)
--- NOTE | 2020-08-03 21:13 | DI.MRI.S_ITS ---
PROCEDURE: MR STROKE Pre- and post-contrast brain MRI, non-contrast brain MR angiogram, pre- and postcontrast neck MR angiogram INDICATIONS: headach dizzyness hypodense lession left temporal lobe CT TECHNIQUE: Brain: Noncontrast axial T1 spin echo, axial T2 fast spin echo, sagittal and axial FLAIR, coronal T2 fast spin echo, axial gradient echo, axial diffusion and ADC through the brain. After the administration of contrast, axial 3D VIBE of the cranial vasculature and brain. Brain MRA: Non-contrast 3-D time of flight MR angiogram, with multiple hopbbsh-outlrdnag-qlsasjlkoe (MIP) reformats performed. Neck MRA: Axial and sagittal TruFISP through the neck. Coronal dynamic MR angiogram during administration of contrast in the arterial and venous phases, with 3-dimenstional wjikydf-plnbgnmfq-ovpambmyvr (MIP) reformats constructed from subtraction images. COMPARISON: [facility], CT, HEAD WITHOUT CONTRAST, 11/23/2015, 17:59. [facility], CT, HEAD WITHOUT CONTRAST, 06/04/2017, 20:58. [facility], MR, BRAIN WITH AND WITHOUT CONTRAS, 10/21/2008, 8:11. [facility], CT, CT HEAD/BRAIN WO CON, 08/03/2020, 17:43. FINDINGS: Image quality: Excellent. BRAIN: The ventricular system and cortical sulci demonstrate atrophy, consistent for the patient's stated age. There are areas of increased T2/FLAIR signal intensity within the periventricular and subcortical white matter. There is no acute intra-or extra axial fluid collection. No acute hemorrhage or midline shift. As noted on CT brain 08/03/2020, there is a corresponding T2 hyperintensity within the right temporal lobe. This has been present on multiple prior exams including MR brain of 2008. It appears most suggestive of a cyst. Brainstem is unremarkable. There are no areas of restricted diffusion. Globes are symmetrical. Sinuses demonstrate minimal scattered ethmoid mucosal thickening. Osseous structures are intact. BRAIN MR ANGIOGRAM: Anterior circulation: The anterior circulation, including the anterior and middle cerebral arteries, as well as internal carotid arteries demonstrates no areas of hemodynamically significant stenosis, vascular occlusion or aneurysmal dilation. 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 Posterior circulation: The posterior circulation demonstrates a left vertebral artery dominance. Basilar artery and posterior cerebral arteries demonstrate no areas of hemodynamically significant stenosis, vascular occlusion or aneurysmal dilation. Posterior communicating arteries are within normal limits. NECK MR ANGIOGRAM: The origins of the left and right common, internal and external carotid arteries demonstrate no areas of hemodynamically significant stenosis, vascular occlusion or aneurysmal dilation. Origins of the left and right vertebral arteries demonstrate no areas of hemodynamically significant stenosis, vascular occlusion or aneurysmal dilation. Aortic arch demonstrates conventional anatomy. Limited, visualized portions of the subclavian vasculature are unremarkable. IMPRESSION: 1. No acute intracranial process. No restricted diffusion to indicate acute/subacute ischemia. 2. Moderate atrophy and chronic microvascular ischemic changes. 3. No areas of hemodynamically significant stenosis, vascular occlusion or aneurysmal dilation within the anterior or posterior circulation. 4. No areas of hemodynamically significant stenosis, vascular occlusion or aneurysmal dilation within the neck vasculature. Dictated by: Ophelia Fu M.D. on 08/04/2020 at 11:32 Approved by: Ophelia Fu M.D. on 08/04/2020 at 11:41
[2020-08-03] MEDS: SIMVASTATIN 40 MG TABLET PO (21:44)
[2020-08-03] MEDS: TRAZODONE 50 MG TABLET PO (21:44)
[2020-08-03] MEDS: ACETAMINOPHEN 325 MG TABLET 650 MG PO (23:49)
[2020-08-04] VITALS: BP 137/71; PULSE 65; RESP 18; TEMP 36.5; O2SAT 96
[2020-08-04] MEDS: MELATONIN 3 MG TABLET 6 MG PO (00:21)
[2020-08-04 04:27] VITALS: BP 139/71; PULSE 65; RESP 18; TEMP 36.6; O2SAT 95
[2020-08-04 06:19] LABS: Add Manual Diff / Slide Review NO; Basophils Absolute Auto 0 /uL (0-100); Basophils Percent Auto 0.8 % (0-2); Eosinophils Absolute Auto 200 /uL (0-450); Eosinophils Percent Auto 3.1 % (2-4); Hematocrit 36.2 % (36-46); Lymphocytes Absolute Auto 1100 /uL (1100-4500); Lymphocytes Percent Auto 20.5 % (25-40); Mean Corpuscular HGB Conc 33.2 % (30-36); Mean Corpuscular Hemoglobin 30.6 PG (26-34); Monocytes Absolute Auto 500 /uL (0-900); Monocytes Percent Auto 9.9 % (3-14); Neutrophils Absolute Auto 3400 /uL (1500-7000); Neutrophils Percent Auto 65.7 % (50-75); Platelet Count 290 X10^3/uL (150-400); Red Blood Cell Count 3.93 X10^6/uL (4.0-5.2); Red Cell Distribution Width 14.7 % (11.6-14.8); White Blood Cell Count 5.2 X10^3/uL (4.5-11.0)
[2020-08-04 06:34] LABS: Alanine Aminotransferase 20 IU/L (<35); Albumin Globulin Ratio 1.7 (1.0-2.8); Alkaline Phosphatase 47 U/L (38-126); Aspartate Aminotransferase 33 IU/L (14-36); BUN Creatinine Ratio 20.4 (6-22); Bilirubin Total 0.4 mg/dL (0.2-1.3); Blood Urea Nitrogen 21 mg/dL (7-17); Calcium 9.7 mg/dL (8.4-10.2); Carbon Dioxide 31 mmol/L (22-32); Chloride 106 mmol/L (98-107); Cholesterol 149 mg/dL (140-199); Estimated Glomerular Filt Rate 52.5 mL/min (>60); Globulin 2.3 g/dL (1.7-4.1); Glucose 95 mg/dL (80-110); HDL Cholesterol 66 mg/dL (40-60); HEMOLYSIS < 15 (0-50); LDL Cholesterol Calculated 63 mg/dL (<100); Potassium 3.9 mmol/L (3.4-5.1); Sodium 138 mmol/L (137-145); Total Protein 6.3 g/dL (6.3-8.2); Triglycerides 98 mg/dL (35-150)
[2020-08-04 07:34] VITALS: BP 143/71; PULSE 62; RESP 16; TEMP 36.2; O2SAT 95
[2020-08-04 07:38] VITALS: BP 135/55; PULSE 64; O2SAT 96
--- NOTE | 2020-08-04 07:38 | DI.ECHO.S_ITS ---
[place] [facility]---------+ [facility] +---------+ : : [address] : : : : [id number] : : : : Phone: [phone]+ Echocardiogram Report + + :Name: JOAN MARIA Study Date: 08/04/2020 Height: 66 in : :[facility] Weight: 181 lb : : Gender: Female BSA: 1.9 m2 : :: 1945 Age: 74 yrs BP: 144/63 mmHg: :Reason For Study: CVA : :Ordering Physician: Juan Daniel : :Hospitalist Performed By: Eliza Joseph : :Referring: CHIP RAMIREZ : + + Interpretation Summary Normal left ventricle size with ejection fraction 60-65%. Mildly dilated left atrium. Mild mitral regurgitation. Mild tricuspid regurgitation. The right ventricular systolic pressure is estimated to be at least 34 mmHg based on an estimated right atrial pressure of 3 mm Hg. Procedure: A two-dimensional transthoracic echocardiogram with color flow and Doppler was performed. The study quality was technically adequate. The patient had an echocardiogram, but there is no comparison study available. The patient was in sinus rhythm with heart rates between 61-67 bpm during the exam. Left Ventricle: The left ventricle is normal in size and wall thickness. The ejection fraction is estimated to be 60-65%. There are no focal wall motion abnormalities. Diastolic parameters suggest probable normal left ventricular diastolic function and normal filling pressures. Right Ventricle: The right ventricle is normal in size and function. Atria: The left atrium is mildly dilated. Right atrial size is normal. There is no Doppler evidence for an interatrial shunt. Mitral Valve: The mitral valve is normal in structure and function. There is mild mitral regurgitation. Aortic Valve: The aortic valve is trileaflet. The aortic valve opens well. There is no aortic valve stenosis. No aortic regurgitation is present. Tricuspid Valve: The tricuspid valve is normal in structure and function. There is mild tricuspid regurgitation. The right ventricular systolic pressure is estimated to be at least 34 mmHg based on an estimated right atrial pressure of 3 mm Hg. Pulmonic Valve: The pulmonic valve is not well visualized. There is no pulmonic valvular regurgitation. Great Vessels: The aortic root is normal size. The ascending aorta could not be visualized. The IVC is of normal diameter and collapses greater than 50% with a sniff. This suggests a low right atrial pressure of 3 mm Hg. Pericardium/ Pleura There is no pericardial effusion. There is no pleural effusion. MMode/2D Measurements & Calculations LVIDd: 4.5 cm LVOT diam: 2.0 cm LVIDs: 3.2 cm Ao root diam: 2.7 cm FS: 29.5 % Ao Arch Diam (Prox Trans): 2.5 cm EPSS: 0.75 cm IVSd: 0.74 cm LVPWd: 0.85 cm LV bray. diameter/BSA (cm/m^2): 2.4 LV sys. diameter/BSA (cm/m^2): 1.7 LA A2 area: 20.4 cm2 RA long axis: 4.7 cm LA A4 area: 17.9 cm2 RA area: 14.0 cm2 LA length (vol): 4.7 cm RA vol: 35.6 ml LA vol: 65.4 ml RA : 18.6 ml/m2 LA vol index: 34.1 ml/m2 IVC diam: 1.4 cm RVD1 (basal): 2.3 cm TAPSE: 1.8 cm Doppler Measurements & Calculations Ao V2 max: 144.1 cm/sec LVOT Max Rico: 99.0 cm/sec Ao V2 mean: 88.0 cm/sec LV V1 max P.9 mmHg Ao max P.3 mmHg LV V1 VTI: 23.7 cm Ao mean P.7 mmHg HECTOR(I,D): 2.3 cm2 Ao V2 VTI: 30.6 cm HECTOR(V,D): 2.1 cm2 sev ratio: 0.77 HECTOR indexed to BSA (cm^2/m^2): 1.2 MV E max rico: 85.8 cm/sec TR max rico: 274.8 cm/sec MV A max rico: 83.5 cm/sec TR max P.5 mmHg MV E/A: 1.0 PA V2 max: 63.6 cm/sec Med Peak E' Rico: 9.7 cm/sec PA V2 mean: 44.1 cm/sec E/E' med: 8.8 PA mean P.91 mmHg Lat Peak E' Rico: 9.1 cm/sec PA pr(Accel): 29.3 mmHg E/E' lat: 9.5 E/e' average: 9.1 MV dec time: 0.24 sec SV(LVOT): 71.0 ml Electronically signed by: Taisha Browning on Reading Physician:08/04/2020 12:46 PM
[2020-08-04] MEDS: ASPIRIN EC 81 MG TABLET 324 MG PO (07:59)
[2020-08-04] MEDS: ENOXAPARIN 40 MG/0.4 ML SYRINGE SUBCUT (08:00)
[2020-08-04] MEDS: lisinopriL 5 MG TABLET PO (08:00)
[2020-08-04] MEDS: ACETAMINOPHEN 325 MG TABLET 650 MG PO (08:00)
[2020-08-04] MEDS: SODIUM CHLORIDE 0.9% FLUSH 10 ML IV (08:00)
--- NOTE | 2020-08-04 08:29 | P.HP_ITS ---
History of Present Illness History of Present Illness Date Patient Seen: 08/04/20 Time Patient Seen: 08:29 Chief complaint: wondering if she had a mini stroke//had several sy Narrative: Pt is a 74yo woman with hypertension who presented with lightheadedness. The pt reports that around 12pm yesterday when walking in her room, she felt suddenly very lightheaded. She had to sit down in a chair in her room, due to concern that she would pass out. She never had any LOC. She called her , who helped her back into bed. After resting for approximately an hour, she felt significantly improved but still not back to baseline. She also then had a mild headache. She came to the ED for evaluation. The pt denies any associated vision changes, weakness, facial droop, difficulty with speech, vertigo, chest pain, SOB, palpitations. Prior to this episode she was feeling well and like her normal self. She has had vertigo in the past, but has never felt lightheaded like this before. In the ED, stroke work-up was completed including head CT that showed a questionable hypodensity in the left temporal lobe that could not r/o infarct. Her lab work was unrevealing. This morning, the pt continues to feel slightly lightheaded but states it is not as severe as before. She has not yet been out of bed. She continues to have a very mild headache. Patient History Medical History Benign paroxysmal vertigo Breast cancer (2011) Cataracts, bilateral (2011) Chicken pox (1954) Chronic kidney disease Concussion (~05/2017) Degenerative arthritis of right knee Fracture (1959) History of heavy periods (1974) Hyperlipidemia Hypertension (2007) Infection, Pseudomonas Infertility (1967) Insomnia Kidney disease (2009) Measles (1954) Migraines (1984) Osteoarthritis (2012) Osteopenia (2009) Ovarian cyst (1967) Primary osteoarthritis of both knees Stroke (Unknown) Surgical menopause Vertigo (2014) Surgical History Anesthesia complication H/O right knee surgery History of arthroplasty of right knee (06/21/19) History of cataract removal with insertion of prosthetic lens (2014) History of cataract removal with insertion of prosthetic lens (2014) History of colonoscopy History of dacryocystorhinostomy (2013) History of eye surgery (1955) History of eye surgery History of hysterectomy History of left oophorectomy History of non-cataract eye surgery (2015) History of non-cataract eye surgery (2016) History of non-cataract eye surgery (2016) History of non-cataract eye surgery (2015) History of oophorectomy, unilateral (1967) History of oophorectomy, unilateral (2005) History of right oophorectomy Status post arthroscopy (2014) Status post breast biopsy (1989) Status post hysterectomy (1979) Status post partial mastectomy (2011) Status post tubal ligation (1974) Family & Social History Family History Brother Age: 84 Heart disease Mental health problem Primary progressive aphasia Brother Age: 70 DVT (deep venous thrombosis) Diabetes mellitus Back problem Joint problem Father Cancer Hodgkin's disease Grandfather Heart disease Heart attack Grandmother Stroke Grandfather Cancer Grandmother Stroke Breast cancer Mother Ovarian cancer Sister Brain aneurysm Sister No problems noted. Family/Other Sleep apnea Restless leg Obesity Hypertension Diabetes mellitus Heart disease Dementia Social History: household members spouse Prior Living Arrangements House lives independently Yes caregiver/support person No other traveling Safety & Behavioral: Feels Safe in Current Yes Environment Been Physically Hurt or No Threatened By a Person Suicidal Ideation Description None Suicide Plan Description No Plan Tobacco & Substance use: Smoking Status Never smoker alcohol intake never Substance Use Type does not use Meds Home Medications and Allergies Home Medications Medication Instructions Recorded Confirmed Type Ca-D3-mag [id number] 1 tab PO BID #0 02/19/11 08/03/20 History [Calcium 600-D3 Plus (mag-zinc)] multivitamin 1 cap PO DAILY #0 02/19/11 08/03/20 History melatonin 5 mg PO HS #0 10/21/12 08/03/20 History alendronate 70 mg tablet 70 mg PO QWEEK 90 Days #12 tab 01/04/18 08/03/20 History aspirin 81 mg tablet,delayed 81 mg PO DAILY tab 01/03/19 08/03/20 History release fenofibrate 160 mg tablet 160 mg PO DAILY #90 tab 04/10/20 08/03/20 Rx simvastatin 40 mg tablet 40 mg PO BEDTIME #90 tab 04/10/20 08/03/20 Rx trazodone 50 mg tablet See Rx Instructions .ROUTE 07/08/20 08/03/20 Rx .COMPLEX #90 tab lisinopril 5 mg tablet 5 mg PO DAILY #90 tab 07/14/20 08/03/20 Rx eszopiclone 1 mg tablet See Rx Instructions .ROUTE 07/21/20 08/03/20 Rx .COMPLEX #30 tab Allergies Allergy/AdvReac Type Severity Reaction Status Date / Time No Known Drug Allergies Allergy Verified 04/09/20 10:19 Exam Vital Signs (past 8 hours): - 08/04/20 04:27 08/04/20 07:34 08/04/20 07:38 Temperature 97.8 F 97.1 F L Pulse Rate 65 62 64 Respiratory Rate 18 16 Blood Pressure 139/71 143/71 H 135/55 L Pulse Oximetry 95 95 96 Oxygen Delivery Method Room Air Oxygen Flow Rate 0 Narrative Exam Narrative: GEN - alert, cooperative and no distress, sitting comfortably in bed, appears well HEENT - normocephalic and atraumatic, sclera white, moist mucus membranes NECK - FROM, no adenopathy, no JVD HEART - RRR, no murmurs LUNGS - symmetric chest rise, no accessory muscles, clear to auscultation jacquelyn aterally ABD - flat, nondistended, normal bowel sounds, soft, nontender, no hepatomegaly, splenomegaly or masses EXT - no cyanosis, clubbing or edema SKIN - no rashes or suspicious lesions NEURO - alert and and oriented to person, place and situation, Muscle strength is 5/5 UE and LE, sensation intact UE and LE, CN II-XII intact Objective Labs Result Diagrams: 08/04/20 05:15 08/04/20 05:15 Labs: Laboratory Results - last 24 hr 08/03/20 08/03/20 08/03/20 18:00 18:00 18:00 WBC 6.3 RBC 4.02 Hgb 12.5 Hct 37.0 MCV 91.9 MCH 31.0 MCHC 33.7 RDW 15.1 H Plt Count 299 Neut % (Auto) 71.3 Lymph % (Auto) 16.2 L [place] % (Auto) 9.2 Eos % (Auto) 2.4 Baso % (Auto) 0.9 Neut # (Auto) 4500 Lymph # (Auto) 1000 L [place] # (Auto) 600 Eos # (Auto) 200 Baso # (Auto) 100 PT 10.5 INR 0.9 APTT 35 Sodium 138 Potassium 4.1 Chloride 106 Carbon Dioxide 28 BUN 28 H Creatinine 1.08 H Estimated GFR 49.7 L BUN/Creatinine Ratio 25.9 H Glucose 97 Calcium 10.2 Total Bilirubin 0.3 AST 37 H ALT 23 Alkaline Phosphatase 64 Total Creatine Kinase 61 CK-MB (CK-2) TNP CK-MB (CK-2) Rel Index TNP Troponin I < 0.012 Total Protein 6.9 Albumin 4.5 Globulin 2.4 Albumin/Globulin Ratio 1.9 Triglycerides Cholesterol LDL Cholesterol, Calc HDL Cholesterol SARS-CoV-2 (PCR) 08/03/20 08/04/20 08/04/20 18:12 05:15 05:15 WBC 5.2 RBC 3.93 L Hgb 12.0 Hct 36.2 MCV 92.0 MCH 30.6 MCHC 33.2 RDW 14.7 Plt Count 290 Neut % (Auto) 65.7 Lymph % (Auto) 20.5 L [place] % (Auto) 9.9 Eos % (Auto) 3.1 Baso % (Auto) 0.8 Neut # (Auto) 3400 Lymph # (Auto) 1100 [place] # (Auto) 500 Eos # (Auto) 200 Baso # (Auto) 0 PT INR APTT Sodium 138 Potassium 3.9 Chloride 106 Carbon Dioxide 31 BUN 21 H Creatinine 1.03 Estimated GFR 52.5 L BUN/Creatinine Ratio 20.4 Glucose 95 Calcium 9.7 Total Bilirubin 0.4 AST 33 ALT 20 Alkaline Phosphatase 47 Total Creatine Kinase CK-MB (CK-2) CK-MB (CK-2) Rel Index Troponin I Total Protein 6.3 Albumin 4.0 Globulin 2.3 Albumin/Globulin Ratio 1.7 Triglycerides 98 Cholesterol 149 LDL Cholesterol, Calc 63 HDL Cholesterol 66 H SARS-CoV-2 (PCR) Negative Assessment & Plan Assessment & Plan narrative: Pt is a 74yo woman with hypertension who presented with lightheadedness. CT scan for stroke work-up showing possible ischemic area, therefore admitted for full CVA work-up. 1) Possible CVA: Pt with ongoing very mild lightheadedness. Did have evidence of mild dehydration at admission with elevated BUN/Cr. - Carotid doppler today - MRI/MRA today - Echocardiogram today - Will give 250cc of IVF to see if helps with lightheadedness and mild headache - PT/OT consulted - Will continue home statin 2) Hypertension: BPs overall in acceptable range - Continue home Lisinopril FEN: General diet Code: Full DVT prophylaxis: SCDs Dispo: Pending completion of above work-up, will be safe for d/c later today. Admitted under observation status.
[2020-08-04] MEDS: SODIUM CHLORIDE 0.9% 250 ML 83.3 ML IV (09:08)
--- NOTE | 2020-08-04 10:00 | PT.IIE ---
Surgical History (Last Reviewed 06/04/20 @ 10:11 by Gus Yung MD) Anesthesia complication H/O right knee surgery History of arthroplasty of right knee (06/21/19) History of cataract removal with insertion of prosthetic lens (2014) History of cataract removal with insertion of prosthetic lens (2014) History of colonoscopy History of dacryocystorhinostomy (2013) History of eye surgery (1954) History of eye surgery History of hysterectomy History of left oophorectomy History of non-cataract eye surgery (2015) History of non-cataract eye surgery (2016) History of non-cataract eye surgery (2017) History of non-cataract eye surgery (2015) History of oophorectomy, unilateral (1967) History of oophorectomy, unilateral (2005) History of right oophorectomy Status post arthroscopy (2014) Status post breast biopsy (1989) Status post hysterectomy (1979) Status post partial mastectomy (2011) Status post tubal ligation (1974) Medical History (Last Reviewed 08/04/20 @ 03:23 by Mickey Pozo DO) Benign paroxysmal vertigo Breast cancer (2011) Cataracts, bilateral (2011) Chicken pox (1954) Chronic kidney disease Concussion (~05/2017) Degenerative arthritis of right knee Fracture (1959) History of heavy periods (1974) Hyperlipidemia Hypertension (2007) Infection, Pseudomonas Infertility (1967) Insomnia Kidney disease (2009) Measles (1954) Migraines (1984) Osteoarthritis (2011) Osteopenia (2009) Ovarian cyst (1967) Primary osteoarthritis of both knees Stroke (Unknown) Surgical menopause Vertigo (2014) Physical Therapy Inpatient Evaluation/Re-Eval M1 PT/OT-IP Prior Functional Status Start: 08/04/20 08:56 Freq: NEEDED Status: Active Protocol: Document 08/04/20 09:59 AW (Rec: 08/04/20 12:00 AW [id number]) Medical Review Prior Functional Status Medical History Reviewed Yes Communication WNL. Pt is an effective verbal communicator. Mobility and Gait Pt reports independent household mobility. She had a fall in November 2019 and sustained a fracture of the right 5th metacarpal. Since that time, she has been using a hurrycane whenever she feels unsteady and tends to use bilateral trekking poles when walking about in her neighborhood. She reports one other fall in March 2019 which resulted in heavy bruising but no other injuries. Activities of Daily Living and IADL's IND with all I/ADL's. 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 Prior Functional Level (Other details) Pt has had PT for full thickness right rotator cuff tear. She re-gained AROM to ~ 130 degrees elevation. She has had bilateral TKA in the past two years and has been satisfied with her rehab. Pt has history of BPPV which resolved with home exercises. She denies any recent room spinning sensation. Pt states she has chronic vision disturbance and frequent double vision. Her left eye does not abduct or track laterally which pt states is not new. Social History Household Members spouse Living Arrangements House Number of Floors (Floors) One Floor Number of Stairs To Enter/Railing? Pt typically enters the home through the garage where there are three stairs with narrow bilateral rails. Front entrance has 2 RBUNO without rail and back entrance has 1 BRUNO without rail. 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 She lives with her spouse, Dereck, who is also retired. M2 PT-IP Current Condition Start: 08/04/20 08:56 Freq: NEEDED Status: Active Protocol: Document 08/04/20 09:59 AW (Rec: 08/04/20 12:00 AW [id number]) Physical Therapy Current Condition Current Condition Evaluation Date 08/04/20 Treatment Diagnosis possible TIA, unsteady gait, frontal headache, difficulty in walking Onset Date 08/03/20 M3 PT-IP Subjective Start: 08/04/20 08:56 Freq: NEEDED Status: Active Protocol: Document 08/04/20 09:59 AW (Rec: 08/04/20 12:00 AW [id number]) Subjective Physical Therapy Visit Type Type Initial Evaluation Visit Start Time 09:28 Visit Stop Time 09:59 Total Visit Minutes 31 Notes Pt's spouse was present throughout evaluation. Number of JOB FOREMAN Visits 0 Physical Therapy Visit Comments Patient Comments Pt is willing to participate with PT Therapy Pain Assessment Pain When Pain Assessed During Mobility Pain Present Pain Present Pain Reported Location front of head Intensity 2 Scale Used Numeric (0 - 10) Pain Management Techniques Timing of Activity with Medications M4 PT-IP Mobility and Gait Start: 08/04/20 08:56 Freq: NEEDED Status: Active Protocol: Document 08/04/20 09:59 AW (Rec: 08/04/20 12:00 AW [id number]) PT-Bed Mobility Assessment Supine to Sit Supine to Sit Independent Sit to Supine Sit to Supine Independent Scooting Scooting to Edge of Bed Independent PT-Transfer Assessment Sit to and From Stand Sit to and from Stand Standby Assistance Equipment Transfer Assistive Device Gait Belt Orthotic/Prosthetic Devices or Brace: No Transfers Transfer Destination Bed Transfer Technique Stand Step Pivot Transfer Ability Level of Assist Standby Assistance Comments Mobility Comments Pt was lying in the bed as PT arrived. Supine BP was 145/67 HR 66. Pt completed all bed mobility IND and sat EOB with and without UE support. BP in sitting was 147/81 HR 72. Pt then stood from the bed SBA and stepped away from the bed for static balance assessment. BP in standing was 144/63 HR 80. Pt then ambulated around the unit and practiced stairs before returning to the room and transerring back to supine IND. Pt was positioned in the bed with call light and all needs in reach, bed alarm on for safety. Gait Assessment Gait Gait Assistance Required: Standby Assistance Distance (Feet) 300 Assistive Devices Assistive Device None,Gait Belt Orthotic/Prosthetic Devices or Brace: No Gait Deviations General Gait Pattern Decreased Stride Length, Decreased Feet Clearance Factors Limiting Gait Function Factors Limiting Gait Function Decreased Strength,Pain,Poor Balance Comments Gait Comments Pt ambulated with her house shoes donned SBA around the unit. Gait was notable for weak hip extension. Pt completed Functional Gait Assessment with score of 24/30 . Stair Climbing Assessment Evaluation Level of Assist On Stairs Standby Assistance Devices Stair Climbing Assistive Devices Left Railing,Right Railing Technique/Endurance Stair Climbing Direction Ascend and Descend Stair Climbing Technique Step Over Step Number of Steps Climbed 3 Query Text: Stair Climbing Set # Repetitions (reps) 2 PT-Balance Assessment Sitting Balance and Reactions Static Sitting Balance Ability Good Dynamic Sitting Balance Ability Good Standing Balance and Reactions Static Standing Balance Ability Good Dynamic Standing Balance Ability Good Device Used no AD Functional Assessments Functional Tests Functional Gait Assessment 24/30 M5 PT-IP Objective Assessments Start: 08/04/20 08:56 Freq: NEEDED Status: Active Protocol: Document 08/04/20 09:59 AW (Rec: 08/04/20 12:00 AW [id number]) Orientation Orientation/Cognition Level of Alertness Alert Orientation Name,Day of Week,Place, Situation Language Function Ability No Deficits Noted Safety Awareness Understands Safety Issues Memory Description No Deficits Noted Gross Range of Motion Upper Extremity ROM Assessment Right Impaired Lower Extremity ROM Assessment Within Functional Limits Strength Lower Extremity Strength Assessment Bilaterally Impaired Hip 4-/5 Knee 4+/5 Ankle 4/5 Coordination Assessment Gross Coordination Gross Coordination WNL Assessment Pronation/Supination Test Normal Performance Sensation Assessment Sensation Gross Sensation WNL Muscle Tone Muscle Tone WNL Yes M6 PT-IP Treatment Start: 08/04/20 08:56 Freq: NEEDED Status: Active Protocol: Document 08/04/20 09:59 AW (Rec: 08/04/20 12:00 AW [id number]) Physical Therapy Treatment Education Education Provided Safety Other Treatments Other Treatment Performed Provided education on role of PT, plan of care, and recommendation for outpatient PT to address hip weakness and dynamic balance. M7 PT-IP Assessment and Plan Start: 08/04/20 08:56 Freq: NEEDED Status: Active Protocol: Document 08/04/20 09:59 AW (Rec: 08/04/20 12:00 AW [id number]) PT Summary Assessment and Plan Potential Rehabilitation Potential Good Status of Condition at Evaluation Stable Summary Impairments Pain,ROM,Strength,Balance,Gait Assessment Summary Talya is a 74 yo woman who presented to ED with an episode of unsteady gait and developing frontal headache. CT head showed possible left temporal lobe hypodensity of indeterminate chronicity. Doppler study suggested 50-69% stenosis of left ICA. Pt is independent at baseline but does use hurry cane occasionally and trekking poles for longer walks. On evaluation, pt completed all bed mobility and transfers independently but required SBA for ambulation. Pt completed Functional Gait Assessment with score of 24/30 which is slightly below norms for her age category (Walker et al, 2007). Pt would benefit from outpatient PT to address BLE strength and dynamic balance deficits. Pt will be safe for discharge home with outpatient PT once medically cleared. Goals Transfer Goal Independent Gait Goal Independent Gait Distance 300 Other Goals - up/down 3 steps with B rails IND Days to Meet Goals 3 Frequency of Treatment Frequency Of Treatment Once a Day Treatment Plan Physical Therapy Treatment Plan Bed Mobility Training,Transfer Training,Gait Training, Therapeutic Exercise,Balance Retraining,Discharge Planning, Hot or Cold Pack,Neuromuscular Re-ed Other Recommendations and Next Treatment dynamic balance, ther ex for Focus BLE strength Recommendations To Nursing Amount of Assist Needed Standby Assistance Discharge Recommendations PT Discharge Recommendations Home,Outpatient PT Transportation Needs at Discharge Private Vehicle
--- NOTE | 2020-08-04 10:05 | CM.DANOTE ---
DCP: Case received, EMR reviewed and met with patient. Introduced self and role. Was able to obtain information from patient regarding her baseline mobility status and living situation prior to hospitalization. DCP assessment completed with information currently available. Patient is a 74 year old female who admitted yesterday evening to the care of the hospitalist team. PCP: Dr. Castro. Payer: confirmed: Medicare/AARP. Patient came to the hospital via private vehicle secondary to having some light headiness, as well as weakness. Patient is here for a CVA work up. Patient has been here before for knee surgeries. Met with patient in her room. She is alert and oriented, pleasant. She resides here in [place] with her spouse, Dereck. She is independent at baseline, but does have a cane for home use. She indicated that she had been here before for two knee surgeries, and after one of the surgeries, she spent approximately 11 weeks at [facility]. P: DCP to continue to follow. Plan is for home when stable. She will be having MRI today, as well as echo. She will also be working with the P.T. team. Amy Ontiveros RN/Fluid Dynamicist
--- NOTE | 2020-08-04 10:37 | PC.NURSE ---
Addendum entered by Adithya Rogers R.N. 08/04/20 13:36: DR. RAMIREZ CAME IN TO SEE PATIENT AND PUT IN DC HOME ORDERS. PATIENT CONFIRMS UNDERSTANDING OF ALL F/U INSTRUCTIONS INCLUDING S/SX'S OF STROKE WARRANTING EMS CALL TO ER. PATIENT AMBULATING WELL IN ROOM. PT AND OT BOTH SAW PATIENT PRIOR TO DC HOME. PATIENTLEFT BY WC WITH ALL BELONGINGS WITH DIRECTOR OF DISTRIBUTION ESCORT WITHOUT S/SX'S OF DISTRESS. Addendum entered by Adithya Rogers R.N. 08/04/20 11:31: PATIENT BACK TO RM 208, ECHO IN PROGRESS. Original Note: PATIENT OFF OF UNIT FOR MRI.
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
[2020-08-04 12:27] VITALS: BP 143/64; PULSE 63; RESP 16; TEMP 36.4; O2SAT 99
--- NOTE | 2020-08-04 13:17 | OT.IP.EVAL ---
Past Medical History (Last Reviewed 08/04/20 @ 03:23 by Mickey Pozo DO) Benign paroxysmal vertigo Breast cancer (2011) Cataracts, bilateral (2011) Chicken pox (1954) Chronic kidney disease Concussion (~05/2017) Degenerative arthritis of right knee Fracture (1959) History of heavy periods (1974) Hyperlipidemia Hypertension (2007) Infection, Pseudomonas Infertility (1967) Insomnia Kidney disease (2009) Measles (1954) Migraines (1984) Osteoarthritis (2011) Osteopenia (2009) Ovarian cyst (1967) Primary osteoarthritis of both knees Stroke (Unknown) Surgical menopause Vertigo (2014) Surgical History (Last Reviewed 06/04/20 @ 10:11 by Gus Yung MD) Anesthesia complication H/O right knee surgery History of arthroplasty of right knee (06/21/19) History of cataract removal with insertion of prosthetic lens (2014) History of cataract removal with insertion of prosthetic lens (2014) History of colonoscopy History of dacryocystorhinostomy (2013) History of eye surgery (1954) History of eye surgery History of hysterectomy History of left oophorectomy History of non-cataract eye surgery (2015) History of non-cataract eye surgery (2016) History of non-cataract eye surgery (2016) History of non-cataract eye surgery (2015) History of oophorectomy, unilateral (1967) History of oophorectomy, unilateral (2005) History of right oophorectomy Status post arthroscopy (2014) Status post breast biopsy (1989) Status post hysterectomy (1979) Status post partial mastectomy (2011) Status post tubal ligation (1974) Occupational Therapy Inpatient Evaluation/Re-Eval M1 PT/OT-IP Prior Functional Status Start: 08/04/20 13:23 Freq: NEEDED Status: Active Protocol: Document 08/04/20 13:17 [facility] (Rec: 08/04/20 13:51 [facility] [id number]) Medical Review Prior Functional Status Medical History Reviewed Yes Communication WNL. Pt is an effective verbal communicator. Mobility and Gait Pt reports independent household mobility. She had a fall in November 2019 and sustained a fracture of the right 5th metacarpal. Since that time, she has been using a hurrycane whenever she feels unsteady and tends to use bilateral trekking poles when walking about in her neighborhood. She reports one other fall in March 2019 which resulted in heavy bruising but no other injuries. Activities of Daily Living and IADL's IND with all I/ADL's. 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 Prior Functional Level (Other details) Pt has had PT for full thickness right rotator cuff tear. She re-gained AROM to ~ 130 degrees elevation. She has had bilateral TKA in the past two years and has been satisfied with her rehab. Pt has history of BPPV which resolved with home exercises. She denies any recent room spinning sensation. Pt states she has chronic vision disturbance and frequent double vision. Her left eye does not abduct or track laterally which pt states is not new. Social History Household Members spouse Living Arrangements House Number of Floors (Floors) One Floor Number of Stairs To Enter/Railing? Pt typically enters the home through the garage where there are three stairs with narrow bilateral rails. Front entrance has 2 BRUNO without rail and back entrance has 1 BRUNO without rail. Home Environment High Toilet,Walk in Shower Home Equipment Front Wheel Walker,Shower Seat without Backrest,Grab Bars Near Toilet,Grab Bars In Shower Employment Status Retired Additional Social History Comment Pt has a hurrycane and [employer] poles. She lives with her spouse, Dereck, who is also retired. M2 OT-IP Current Condition Start: 08/04/20 13:23 Freq: Status: Active Protocol: Document 08/04/20 13:17 [facility] (Rec: 08/04/20 13:51 [facility] [id number]) Occupational Therapy Current Condition Current Condition Evaluation Date 08/04/20 Treatment Diagnosis Possible TIA versus CVA Diagnosis Onset Date 08/03/20 M3 OT- IP Subjective and Pain Start: 08/04/20 13:23 Freq: Status: Active Protocol: Document 08/04/20 13:17 [facility] (Rec: 08/04/20 13:51 [facility] [id number]) OT- Subjective Occupational Therapy Visit Type Type Initial Evaluation Visit Start Time 10:00 Visit Stop Time 13:17 Total Visit Minutes 55 Notes Pt seen for split session and pt having to go to MRI, therefore OT saw pt from 1000- 1028 and [id number]. Occupational Therapy Visit Comments Patient Comments Pt agreed to work with OT. Patient/Caregiver Goals TO go home. OT Pain Assessment Pain When Pain Assessed At Rest Pain Present Pain Present Denied Pain M4 OT- IP ADL's Start: 08/04/20 13:23 Freq: Status: Active Protocol: Document 08/04/20 13:17 [facility] (Rec: 08/04/20 13:51 [facility] [id number]) OT ADL-Grooming General Evaluation Grooming Ability Independent OT ADL-Dressing General Eval Upper Body Dressing Ability Independent Lower Body Dressing Ability Independent OT ADL-Toileting General Evaluation Toileting Ability Independent OT ADL-Bathing Comments OT Bathing Comments Pt states to shower at home. 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 M6 OT- IP Functional Cognition Start: 08/04/20 13:23 Freq: Status: Active Protocol: Document 08/04/20 13:17 [facility] (Rec: 08/04/20 13:51 [facility] [id number]) Cognitive Factors Limiting Selfcare Function Cognitive Ability Level of Alertness Alert Patient Orientation Name,Age,Birthday,Month,Date, Year,Day of Week,Place, Situation Attention Span Ability Capable of Focused Attention, Capable of Sustained Attention Ability to Follow Commands Able to Follow Multi-Step Commands Memory Description Short Term Impaired Safety Awareness No Deficits Noted Cognitive Comments Cognitive Assessment Comments Pt appears to be at baseline for cognitive needs. Pt scored 82 on Elrod Making Part B which implies normal but not perfect score for visual attention, task switching, speed of processing, mental flexibility, and executive function. Pt however was a little forgetful while getting dressed forgot where she placed her underwear as it was in her lap. OT- Vision and Hearing OT- Hearing Assessment OT- Hearing Assessment WFL OT- Vision Assessment Visual Acuity Glasses All The Time Vision Assessment Comments Left double vision. M7 OT- IP Mobility and Balance Start: 08/04/20 13:23 Freq: Status: Active Protocol: Document 08/04/20 13:17 [facility] (Rec: 08/04/20 13:51 [facility] [id number]) OT- Bed Mobility Assessment Rolling Level of Assistance Independent Supine to Sit Supine to Sit Assist Independent Sit to Supine Sit to Supine Assist Independent Scooting Scooting to Edge of Bed Independent Scooting Up and Down in Bed Independent OT-Transfer Assessment Sit to and From Stand Sit to and from Stand Independent Transfers Transfer Ability Independent Technique Transfer Destination Bed,Chair,Wheelchair OT- Gait Assessment Gait Gait Assistance Required: Independent OT- Balance Assessment Sitting Balance and Reactions Static Sitting Balance Ability Normal Dynamic Sitting Balance Ability Normal Standing Balance and Reactions Static Standing Balance Ability Normal Dynamic Standing Balance Ability Good M8 OT- IP Objective Assessments Start: 08/04/20 13:23 Freq: Status: Active Protocol: Document 08/04/20 13:17 [facility] (Rec: 08/04/20 13:51 [facility] [id number]) OT Gross Range of Motion Upper Extremity Range of Motion Assessment Within Functional Limits ROM Impairments WFL for needs, RUE 0-130 for shoulder flexion and history of rotator cuff tear. OT Strength Upper Extremity Strength Assessment Right Impaired OT- Coordination Assessment Upper Extremity Finger to Nose Test Within Functional Limits OT-Muscle Tone Assessment Muscle Tone WNL Yes OT Sensation Assessment Comments Summary Comments Decreased proprioception for right hand at wrist and fingers. Edema Edema Comments MIld swelling in right hand. M9 OT- IP Assessment and Plan Start: 08/04/20 13:23 Freq: Status: Active Protocol: Document 08/04/20 13:17 [facility] (Rec: 08/04/20 13:51 [facility] [id number]) OT Summary Assessment and Plan Potential Rehabilitation Potential Excellent Analytic Complexity at Evaluation Low Summary OT Impairments Range of Motion,Strength, Bathing Progress Towards Goals Progressing Toward Goals Assessment Summary Pt low complexity and here due to possible CVA versus TIA. Pt independent with all ADl needs and main issue not related to her admission is her right hand having difficulty to write and still a little swollen from having surgery in 11/2019. Able to give pt suggestions to write with a larger pen and keep track if she is having anymore difficulties with her right hand to touch base with her hand surgeon to possibly request more hand therapy. Pt looking to go home today. Pt has a supportive to assist her if needed. Goals Bathing Goal Independent Shower Transfer Goal Independent Days to Meet Goals 1 Frequency of Treatment Frequency Of Treatment Once a Day Treatment Plan OT Treatment Plan ADL Training,Functional Mobility,Patient/Family Education,Discharge Planning Other Treatment Recommendations and Next shower if still here Treatment Focus Discharge Recommendations OT Discharge Recommendations Home with Assistance Transportation Needs at Discharge Private Vehicle
--- NOTE | 2020-08-04 21:13 | DI.US.S_ITS ---
PROCEDURE: US CAROTID DOPPLER BI INDICATIONS: DIZZINESS TECHNIQUE: Color and pulse Doppler interrogation was performed of both carotid systems, with image documentation and velocity measurements. COMPARISON: None. FINDINGS: Stenosis calculations are based on SRU (Society of Radiologists in Ultrasound) criteria. Right side: Brachial blood pressure: Not measured. Common carotid artery peak systolic velocity: 115 cm/sec. Internal carotid artery peak systolic velocity: 106 cm/sec. Internal carotid artery end diastolic velocity: 20 cm/sec. External carotid artery peak systolic velocity: 90 cm/sec. ICA/CCA peak systolic ratio: 0 point 9. Garcia scale imaging description: Minimal calcified plaque Percent internal carotid artery stenosis: Less than 50%. Vertebral artery: Flow direction is antegrade. Left side: Brachial blood pressure: Not measured. Common carotid artery peak systolic velocity: 294 cm/sec. Internal carotid artery peak systolic velocity: 141 cm/sec. Internal carotid artery end diastolic velocity: 38 cm/sec. External carotid artery peak systolic velocity: 85 cm/sec. ICA/CCA peak systolic ratio: 0.5. Garcia scale imaging description: Calcified plaque Percent internal carotid artery stenosis: 50-69%. Vertebral artery: Flow direction is antegrade. IMPRESSION: 1. Less than 50% stenosis of the origin of the right internal carotid artery. 2. Moderate 50-69% stenosis of the origin left internal carotid artery. 3. Elevated velocities in the visualized left common carotid artery suggesting inflow disease with proximal stenosis. Recommend CT angiogram of the neck for definitive characterization if clinically indicated. Dictated by: Ora Townsend MD, PhD on 08/04/2020 at 8:48 Approved by: Ora Townsend MD, PhD on 08/04/2020 at 8:53
== END 2020-08-04 13:38 | disposition home or self-care (01) ==
LOC: ED 20:05 → AC 20:07
PROVIDERS: Emergency Medicine; Admitting Provider Family Medicine; Emergency Provider Emergency Medicine; PCP Family Medicine; Referring Provider Emergency Medicine; Visit Provider Family Medicine
DX: R51.9 Headache, unspecified (principal); I10 Essential (primary) hypertension; R42 Dizziness and giddiness; E86.0 Dehydration; Z20.822 Contact with and (suspected) exposure to COVID-19
CPT/HCPCS: 36415; 70450; 70548; 70553; 71045; 80053; 80061; 82550; 84484; 85025; 85610; 85730; 87635; 92610; 93005; 93306; 93880; 96372; 97161; 97165; 99220; 99284; C9803; G0378; J1650

== ENCOUNTER → 2021-09-28 08:47 | Outpatient (CLI) | payer MEDICARE, SELFPAY ==
[2020-08-03 21:14] VITALS: BMI 29.5
[2021-09-28 11:45] LABS: Alanine Aminotransferase 25 IU/L (<35); Albumin 4.8 g/dL (3.5-5.0); Albumin Globulin Ratio 1.8 (1.0-2.8); Alkaline Phosphatase 46 U/L (38-126); Aspartate Aminotransferase 39 IU/L (14-36); BUN Creatinine Ratio 25.2 (6-22); Bilirubin Total 0.6 mg/dL (0.2-1.3); Blood Urea Nitrogen 31 mg/dL (7-17); Calcium 10.2 mg/dL (8.4-10.2); Carbon Dioxide 29 mmol/L (22-32); Chloride 101 mmol/L (98-107); Cholesterol 180 mg/dL (140-199); Estimated Glomerular Filt Rate 42.7 mL/min (>60); Globulin 2.7 g/dL (1.7-4.1); Glucose 93 mg/dL (80-110); HDL Cholesterol 69 mg/dL (40-60); HEMOLYSIS < 15 (0-50); LDL Cholesterol Calculated 87 mg/dL (<100); Potassium 4.6 mmol/L (3.4-5.1); Sodium 138 mmol/L (137-145); Total Protein 7.5 g/dL (6.3-8.2); Triglycerides 121 mg/dL (35-150)
[2021-09-28 14:28] LABS: Creatinine Urine Random 88.1 mg/dL
[2021-09-28 14:32] LABS: Microalbumi Creatinin Ratio Ur 144.1 ug/mg CR (<30); Microalbumin Urine Random 12.7 mg/dL (0-1.6)
== END ==
PROVIDERS: PCP Family Medicine; Referring Provider Family Medicine; Visit Provider Family Medicine
DX: I10 Essential (primary) hypertension (principal)
CPT/HCPCS: 36415; 80053; 80061; 82043; 82570

== ENCOUNTER → 2021-09-29 11:37 | Outpatient (CLI) | payer MEDICARE, SELFPAY ==
[2020-08-03 21:14] VITALS: BMI 29.5
[2021-09-30 08:20] LABS: Fecal Immunochemical Test Negative (Negative)
== END ==
PROVIDERS: PCP Family Medicine; Referring Provider Family Medicine; Visit Provider Family Medicine
DX: Z12.11 Encounter for screening for malignant neoplasm of colon (principal)
CPT/HCPCS: 82274

== ENCOUNTER → 2021-10-15 10:53 | Outpatient (CLI) | payer MEDICARE, SELFPAY ==
[2020-08-03 21:14] VITALS: BMI 29.5
[2021-10-15 12:21] LABS: BUN Creatinine Ratio 24.8 (6-22); Blood Urea Nitrogen 29 mg/dL (7-17); Calcium 10.5 mg/dL (8.4-10.2); Carbon Dioxide 30 mmol/L (22-32); Chloride 100 mmol/L (98-107); Estimated Glomerular Filt Rate 45.2 mL/min (>60); Glucose 91 mg/dL (80-110); HEMOLYSIS < 15 (0-50); Potassium 4.8 mmol/L (3.4-5.1); Sodium 135 mmol/L (137-145)
== END ==
PROVIDERS: PCP Family Medicine; Referring Provider Family Medicine; Visit Provider Family Medicine
DX: N17.9 Acute kidney failure, unspecified (principal)
CPT/HCPCS: 36415; 80048

== ENCOUNTER → 2022-01-01 10:46 | Outpatient (CLI) | payer MEDICARE, SELFPAY ==
[2021-12-14 14:50] VITALS: BMI 29.5
[2022-01-01 13:45] LABS: BUN Creatinine Ratio 32.3 (6-22); Blood Urea Nitrogen 42 mg/dL (7-17); Carbon Dioxide 31 mmol/L (22-32); Chloride 103 mmol/L (98-107); Estimated Glomerular Filt Rate 43 mL/min (>60); Glucose 90 mg/dL (80-110); HEMOLYSIS < 15 (0-50); Sodium 138 mmol/L (137-145)
== END ==
PROVIDERS: PCP Family Medicine; Referring Provider Family Medicine; Visit Provider Family Medicine
DX: I10 Essential (primary) hypertension (principal); R89.9 Unspecified abnormal finding in specimens from other organs, systems and tissues
CPT/HCPCS: 36415; 80048

== ENCOUNTER → 2022-01-20 10:12 | Outpatient (CLI) | payer MEDICARE, SELFPAY ==
[2021-12-14 14:50] VITALS: BMI 29.5
[2022-01-20 11:47] LABS: BUN Creatinine Ratio 23.7 (6-22); Blood Urea Nitrogen 27 mg/dL (7-17); Calcium 9.7 mg/dL (8.4-10.2); Carbon Dioxide 27 mmol/L (22-32); Chloride 92 mmol/L (98-107); Estimated Glomerular Filt Rate 50 mL/min (>60); Glucose 82 mg/dL (80-110); HEMOLYSIS < 15 (0-50); Sodium 128 mmol/L (137-145)
== END ==
PROVIDERS: PCP Family Medicine; Referring Provider Family Medicine; Visit Provider Family Medicine
DX: R94.4 Abnormal results of kidney function studies (principal)
CPT/HCPCS: 36415; 80048

== ENCOUNTER → 2022-02-04 10:26 | Outpatient (CLI) | payer MEDICARE, SELFPAY ==
[2021-12-14 14:50] VITALS: BMI 29.5
[2022-02-04 12:32] LABS: BUN Creatinine Ratio 20.7 (6-22); Blood Urea Nitrogen 23 mg/dL (7-17); Calcium 10.5 mg/dL (8.4-10.2); Carbon Dioxide 30 mmol/L (22-32); Chloride 98 mmol/L (98-107); Estimated Glomerular Filt Rate 52 mL/min (>60); Glucose 92 mg/dL (80-110); HEMOLYSIS < 15 (0-50); Potassium 5.1 mmol/L (3.4-5.1); Sodium 135 mmol/L (137-145)
[2022-02-04 16:12] LABS: Sodium Urine Random 100 mmol/L (30-90)
[2022-02-05 08:51] LABS: Osmolality Urine 369 mOsmol/kg (.)
== END ==
PROVIDERS: PCP Family Medicine; Referring Provider Family Medicine; Visit Provider Family Medicine
DX: E87.1 Hypo-osmolality and hyponatremia (principal)
CPT/HCPCS: 36415; 80048; 83935; 84300

== ENCOUNTER → 2022-06-20 09:21 | Outpatient (CLI) | payer MEDICARE, SELFPAY ==
[2021-12-14 14:50] VITALS: BMI 29.5
[2022-06-20 10:17] LABS: Influenza A - CEPHEID Flu A NEGATIVE (NEGATIVE); Influenza B - CEPHEID Flu B NEGATIVE (NEGATIVE); Respiratory Syncytial Virus Negative (Negative)
[2022-06-20 10:37] LABS: COVID-19 CEPHEID 4-PLEX PCR Negative (Negative)
== END ==
PROVIDERS: PCP Family Medicine; Visit Provider Physician Assistant
DX: R51.9 Headache, unspecified (principal); R05.1 Acute cough
CPT/HCPCS: 0241U

== ENCOUNTER → 2022-06-26 12:27 | Outpatient (CLI) | payer MEDICARE, SELFPAY ==
[2021-12-14 14:50] VITALS: BMI 29.5
--- NOTE | 2022-06-26 12:29 | DI.MRI.S_ITS ---
PROCEDURE: MR SHOULDER RT WO CON INDICATIONS: Bursitis of right shoulder TECHNIQUE: Noncontrast oblique coronal T2 fast spin echo with fat saturation, oblique sagittal T1 spin echo and T2 fast spin echo with fat saturation, axial T1 spin echo and T2 fast spin echo with fat saturation through the shoulder. COMPARISON: [facility], MR, MR SHOULDER RT WO CON, 02/21/2020, 11:22. FINDINGS: Image quality: Excellent. Rotator cuff: Full-thickness tearing of the entire supraspinatus, with medial retraction and atrophy, as before. Low-grade partial-thickness intrasubstance and articular surface tears of the anterior, mid, and posterior infraspinatus, as well as the mid and inferior subscapularis tendons at the humeral insertion sites extending to the musculotendinous junctions. Bones and bursae: No bone marrow contusions or fractures. Moderate acromioclavicular joint degeneration. The acromion demonstrates conventional anatomy, without an os acromiale. No pathologic subacromial-subdeltoid or subcoracoid bursal fluid is present. Capsule and soft tissues: Diffuse undercutting of the labrum is present, progressed since the prior examination. The long head of the biceps tendon demonstrates normal location and morphology. The rotator interval appears normal, without fibrosis. The coracohumeral ligament is normal in thickness. IMPRESSION: 1. No significant change in full-thickness tearing of the supraspinatus with associated atrophy. 2. Low-grade partial-thickness tears of the subscapularis and infraspinatus tendons. 3. Glenoid labral tearing. 4. Acromioclavicular joint osteoarthritis. Dictated by: Humble Londono M.D. on 06/28/2022 at 8:42 Approved by: Humble Londono M.D. on 06/28/2022 at 8:44
== END ==
PROVIDERS: PCP Family Medicine; Referring Provider Orthopaedic Surgery; Visit Provider Orthopaedic Surgery
DX: M75.51 Bursitis of right shoulder (principal); M75.121 Complete rotator cuff tear or rupture of right shoulder, not specified as traumatic; S43.491A Other sprain of right shoulder joint, initial encounter; M19.011 Primary osteoarthritis, right shoulder
CPT/HCPCS: 73221

== ENCOUNTER → 2023-04-30 07:50 | Outpatient (CLI) | payer MEDICARE, SELFPAY ==
[2021-12-14 14:50] VITALS: BMI 29.5
[2023-04-30 08:41] LABS: Alanine Aminotransferase 29 IU/L (<35); Albumin 4.2 g/dL (3.5-5.0); Albumin Globulin Ratio 1.6 (1.0-2.8); Alkaline Phosphatase 57 U/L (38-126); Aspartate Aminotransferase 38 IU/L (14-36); BUN Creatinine Ratio 29.4 (6-22); Bilirubin Total 0.4 mg/dL (0.2-1.3); Blood Urea Nitrogen 35 mg/dL (7-17); Calcium 9.9 mg/dL (8.4-10.2); Carbon Dioxide 25 mmol/L (22-32); Chloride 103 mmol/L (98-107); Cholesterol 159 mg/dL (140-199); Estimated Glomerular Filt Rate 47 mL/min (>60); Globulin 2.7 g/dL (1.7-4.1); Glucose 93 mg/dL (80-110); HDL Cholesterol 67 mg/dL (40-60); HEMOLYSIS 19 (0-50); LDL Cholesterol Calculated 74 mg/dL (<100); Potassium 4.1 mmol/L (3.4-5.1); Sodium 137 mmol/L (137-145); Total Protein 6.9 g/dL (6.3-8.2); Triglycerides 88 mg/dL (35-150)
[2023-04-30 09:19] LABS: Creatinine Urine Random 142.2 mg/dL
[2023-04-30 09:23] LABS: Microalbumi Creatinin Ratio Ur 11.9 ug/mg CR (<30); Microalbumin Urine Random 1.7 mg/dL (0-1.6)
== END ==
PROVIDERS: PCP Family Medicine; Referring Provider Family Medicine; Visit Provider Family Medicine
DX: I10 Essential (primary) hypertension (principal)
CPT/HCPCS: 36415; 80053; 80061; 82043; 82570

== ENCOUNTER → 2023-12-08 11:57 | Outpatient (CLI) | payer MEDICARE, SELFPAY ==
[2021-12-14 14:50] VITALS: BMI 29.5
[2023-12-08 12:59] LABS: Influenza A - CEPHEID Flu A NEGATIVE (NEGATIVE); Influenza B - CEPHEID Flu B NEGATIVE (NEGATIVE); Respiratory Syncytial Virus Negative (Negative)
[2023-12-08 13:06] LABS: COVID-19 CEPHEID 4-PLEX PCR Negative (Negative)
== END ==
PROVIDERS: PCP Family Medicine; Visit Provider Physician Assistant
DX: R05.1 Acute cough (principal)
CPT/HCPCS: 0241U

== ENCOUNTER → 2024-01-18 09:38 | Outpatient (CLI) | payer MEDICARE, SELFPAY ==
[2021-12-14 14:50] VITALS: BMI 29.5
[2024-01-18 10:38] LABS: Blood Urea Nitrogen 26 mg/dL (7-17); Carbon Dioxide 24 mmol/L (22-32); Chloride 106 mmol/L (98-107); Estimated Glomerular Filt Rate 45 mL/min (>60); Glucose 108 mg/dL (80-110); HEMOLYSIS < 15 (0-50); Potassium 4.6 mmol/L (3.4-5.1); Sodium 137 mmol/L (137-145)
[2024-01-18 10:46] LABS: Influenza A - CEPHEID Flu A NEGATIVE (NEGATIVE); Influenza B - CEPHEID Flu B NEGATIVE (NEGATIVE); Respiratory Syncytial Virus Negative (Negative)
[2024-01-18 10:50] LABS: COVID-19 CEPHEID 4-PLEX PCR POSITIVE (Negative)
== END ==
PROVIDERS: PCP Family Medicine; Visit Provider Student in an Organized Health Care Education/Training Program
DX: U07.1 COVID-19 (principal)
CPT/HCPCS: 0241U; 80048

== ENCOUNTER → 2024-04-11 08:09 | Outpatient (CLI) | payer MEDICARE, SELFPAY ==
[2021-12-14 14:50] VITALS: BMI 29.5
[2024-04-11 10:04] LABS: Alanine Aminotransferase 22 IU/L (<35); Albumin 4.4 g/dL (3.5-5.0); Albumin Globulin Ratio 1.8 (1.0-2.8); Alkaline Phosphatase 69 U/L (38-126); Aspartate Aminotransferase 32 IU/L (14-36); BUN Creatinine Ratio 23.9 (6-22); Bilirubin Total 0.5 mg/dL (0.2-1.3); Blood Urea Nitrogen 32 mg/dL (7-17); Calcium 11.1 mg/dL (8.4-10.2); Carbon Dioxide 27 mmol/L (22-32); Chloride 99 mmol/L (98-107); Cholesterol 152 mg/dL (140-199); Estimated Glomerular Filt Rate 41 mL/min (>60); Globulin 2.4 g/dL (1.7-4.1); Glucose 92 mg/dL (80-110); HDL Cholesterol 77 mg/dL (40-60); HEMOLYSIS < 15 (0-50); LDL Cholesterol Calculated 58 mg/dL (<100); Potassium 4.6 mmol/L (3.4-5.1); Sodium 134 mmol/L (137-145); Total Protein 6.8 g/dL (6.3-8.2); Triglycerides 86 mg/dL (35-150)
[2024-04-11 11:30] LABS: Creatinine Urine Random 69.75 mg/dL
[2024-04-11 11:34] LABS: Microalbumin Urine Random 1.2 mg/dL (0-1.6)
== END ==
PROVIDERS: PCP Family Medicine; Referring Provider Family Medicine; Visit Provider Family Medicine
DX: I10 Essential (primary) hypertension (principal)
CPT/HCPCS: 36415; 80053; 80061; 82043; 82570

== ENCOUNTER → 2024-08-28 10:06 | Outpatient (CLI) | payer MEDICARE, SELFPAY ==
[2021-12-14 14:50] VITALS: BMI 29.5
[2024-08-28 11:10] LABS: Influenza A - CEPHEID Flu A NEGATIVE (NEGATIVE); Influenza B - CEPHEID Flu B NEGATIVE (NEGATIVE); Respiratory Syncytial Virus Negative (Negative)
[2024-08-28 11:41] LABS: COVID-19 CEPHEID 4-PLEX PCR Negative (Negative)
== END ==
PROVIDERS: PCP Family Medicine; Visit Provider Nurse Practitioner Family
DX: R05.1 Acute cough (principal)
CPT/HCPCS: 0241U

== ENCOUNTER → 2024-08-28 10:16 | Outpatient (CLI) | payer MEDICARE, SELFPAY ==
[2021-12-14 14:50] VITALS: BMI 29.5
--- NOTE | 2024-08-28 10:17 | DI.RAD.S_ITS ---
PROCEDURE: XR CHEST 2V INDICATIONS: Cough TECHNIQUE: 2 views of the chest were acquired. COMPARISON: [facility], , XR CHEST 1V, 08/03/2020, 18:09. FINDINGS: Surgical changes and devices: Possible right mastectomy Lungs and pleura: Lung volumes are elevated and there is mild wall thickening of the central bronchi suggesting bronchitis. No definite infiltrate Mediastinum: Mediastinal contours are normal. Heart size is normal. Bones and chest wall: Mild chronic wedging upper and midthoracic vertebral bodies with severe degenerative disc disease upper midthoracic spine IMPRESSION: Bronchitis Dictated by: Hero Bonds M.D. on 08/29/2024 at 11:47 Approved by: Hero Bonds M.D. on 08/29/2024 at 11:48
== END ==
PROVIDERS: PCP Family Medicine; Referring Provider Nurse Practitioner Family; Visit Provider Nurse Practitioner Family
DX: J40 Bronchitis, not specified as acute or chronic (principal); R05.1 Acute cough; M51.34 Other intervertebral disc degeneration, thoracic region
CPT/HCPCS: 0241U; 71046

== ENCOUNTER → 2024-10-04 10:33 | Outpatient (CLI) | payer MEDICARE, SELFPAY ==
[2021-12-14 14:50] VITALS: BMI 29.5
--- NOTE | 2024-10-04 14:14 | ST.SWALLOW ---
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 Pt noted, a friend, who is a nurse who observed that pt seems to cough more frequently after drinking water. The patient does state that when she drinks water, she frequently feels like it goes down the wrong tube, and this happens at least 1 to 2 times a day. Pt has a PMH that included CVA 20 years ago and breast cancer with mastectomy (2012). Pt received radiation therapy (35 treatment over 7 weeks) in her chest area following the mastectomy.Pt was also diagnosed with GERD about 15 years ago. She denied current GERD s/sx. Subjective Observations Pt was seated in the fluoroscopy chair with directions and procedures described for her. She indicated she understood and agreed to proceed. Patient Positioning Position View Lat-A/P Imaging Lateral View Textures Administered Trials Presented Thin Liquid via Spoon (IDDSI 0 ),Thin Liquid via Cup (IDDSI 0 ),Extremely Thick Liquid via Spoon (IDDSI 4),Regular (IDDSI 7) Barium Tablet Yes The IDDSI Framework Protocol: IDDSI.1 Oral Impairment Source: The Modified Barium Swallow Impairment Profile (MBSImP??) Lip Closure No labial escape Tongue Control During Bolus Hold Cohesive bolus between tongue to palatal seal Bolus Preparation/Mastication Timely & efficient chewing & mashing Bolus Transport/Lingual Motion Brisk tongue motion Oral Residue Complete oral clearance,Trace residue lining oral structures Location Tongue Initiation of Pharyngeal Swallow Bolus head in valleculae Additional Oral Impairment Observations *OME and DKS were observed to be WNL. *Dentition natural and in good hygiene *Mastication observed with rotary chew pattern. *Good bolus formation, control and AP transition. Oral phase of swallow WNL Pharyngeal Impairment Source: The Modified Barium Swallow Impairment Profile (MBSImP??) Soft Palate Elevation No bolus between soft palate & pharyngeal wall Laryngeal Elevation Part.sup.move.thyroid cart/ part.approx.arytenoids to epiglot.petiole Anterior Hyoid Excursion Partial anterior movement Epiglottic Movement Complete inversion Laryngeal Vestibular Closure Complete; no air/contrast in laryngeal vestibule Pharyngeal Stripping Wave Present - complete Pharyngoesophageal Segment Opening Complete distention & complete duration; no obstruction of flow Tongue Base Retraction Narrow column of contrast/air betwn tongue base & post. pharyngeal wall Pharyngeal Residue Collection of residue within/ on pharyngeal structures Location Valleculae Additional Pharyngeal Impairment *Reduced base of tongue Observations retraction strength *Reduced hyolaryngeal elevation and movement *Epiglottal inversion complete with good laryngeal seal *No laryngeal penetration or tracheal aspiration observed *Pooling of contrast noted in the valeculla across trials *Adequate UES extension and duration Pharyngeal phase of swallow mildy reduced (may be WFL for pt's age) Pt could benefit from base of tongue exercises and dysphagia education A/P View Textures Administered Trials Presented Thin Liquid via Spoon (IDDSI 0 ) The IDDSI Framework Protocol: IDDSI.1 A/P View Observations Pharyngeal Contraction Complete Esophageal Clearance Upright Position Esophageal retention w/ regtrograde flow below pharyngoesoph segment Vocal Fold Function Good Esophageal Function Slowed Clearing,Poor Motility, Stasis,Narrowing Additional A-P Observations *Esophageal retention observed from sternum to stomach. *Water wash partially cleared retained contrast *Narrowing mid esophagus x2 observed which may be a spasm or, possibly, related to radiation treatment (scatter radiation) for breast cancer ( e.g., reduced motility/ flexibility) *Barium tablet cleared esophagus in a timely manner Clinical Impressions Dysphagia Type Esophageal Findings See AP observations above. Pt encouraged to discuss findings with her PCP Rehabilitation Potential Excellent Patient Appropriate for Therapy Yes: Base of tongue exercises Recommendations Diet Comments no diet change is recommended Aspiration Precautions Additional Precautions When conversing, swallow before speaking; mindful swallows Treatment Plan Therapy Recommendations Outpatient Speech Therapy,Base of Tongue Exercises
== END ==
LOC: RAD 10:35
PROVIDERS: PCP Family Medicine; Referring Provider Family Medicine; Visit Provider Family Medicine
DX: T17.908A Unspecified foreign body in respiratory tract, part unspecified causing other injury, initial encounter (principal); R13.19 Other dysphagia
CPT/HCPCS: 74230; 92611

== ENCOUNTER 2024-11-05 19:38 | Emergency (ER) | payer MEDICARE, SELFPAY ==
[2021-12-14 14:50] VITALS: BMI 29.5
[2024-11-05] VITALS (10 sets, daily range): BP systolic 155–216; BP diastolic 67–86; PULSE 59–76; RESP 17–40; TEMP 36.4; O2SAT 94–96; BMI 27.7
--- NOTE | 2024-11-05 20:06 | DI.RAD.S_ITS ---
PROCEDURE: XR CHEST 1V INDICATIONS: chest pain TECHNIQUE: One view of the chest was acquired. COMPARISON: [facility], CR, XR CHEST 2V, 08/28/2024, 10:19. [facility], CR, XR CHEST 1V, 08/03/2020, 18:09. FINDINGS: Surgical changes and devices: None. Lungs and pleura: Lungs are clear. No pleural effusions or pneumothorax. Mediastinum: Mediastinal contours appear normal. Heart size is normal. Bones and chest wall: No suspicious bony lesions. Overlying soft tissues appear unremarkable. IMPRESSION: No acute cardiopulmonary abnormality is seen. Approved by: Дмитрий Antonio M.D. on 11/05/2024 at 20:28
--- NOTE | 2024-11-05 20:06 | EKG_ITS ---
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
[2024-11-05 20:25] LABS: Add Manual Diff / Slide Review NO; Basophils Absolute Auto 100 /uL (0-100); Basophils Percent Auto 1.1 % (0-2); Eosinophils Absolute Auto 200 /uL (0-450); Eosinophils Percent Auto 3.7 % (2-4); Hemoglobin 11.8 g/dL (12.0-16.0); Lymphocytes Absolute Auto 1400 /uL (1100-4500); Lymphocytes Percent Auto 23.4 % (25-40); Mean Corpuscular HGB Conc 33.6 % (30-36); Mean Corpuscular Hemoglobin 30.4 PG (26-34); Mean Corpuscular Volume 90.4 fL (80-100); Monocytes Absolute Auto 600 /uL (0-900); Monocytes Percent Auto 9.8 % (3-14); Neutrophils Absolute Auto 3700 /uL (1500-7000); Platelet Count 330 X10^3/uL (150-400); Red Blood Cell Count 3.87 X10^6/uL (4.0-5.2); Red Cell Distribution Width 16.3 % (11.6-14.8); White Blood Cell Count 5.9 X10^3/uL (4.5-11.0)
[2024-11-05 20:33] LABS: PTT Partial Thromboplastin Tim 36 SECONDS (25.1-36.5)
--- NOTE | 2024-11-05 20:33 | PC.NURSE ---
Patient here in department for onset of dizziness, mild headache, and reports of high blood pressure per patient. Patient takes lisinopril in the PM. Patient reports no chest pain, sob, nausea. FAST negative, patient reports she had brain MRI that showed she had a stroke in the past
[2024-11-05 20:35] LABS: Alanine Aminotransferase 25 IU/L (<35); Albumin 4.4 g/dL (3.5-5.0); Albumin Globulin Ratio 1.7 (1.0-2.8); Alkaline Phosphatase 67 U/L (38-126); Aspartate Aminotransferase 35 IU/L (14-36); BUN Creatinine Ratio 21.7 (6-22); Bilirubin Total 0.4 mg/dL (0.2-1.3); Blood Urea Nitrogen 28 mg/dL (7-17); Carbon Dioxide 29 mmol/L (22-32); Chloride 100 mmol/L (98-107); Creatine Kinase 73 U/L (30-135); Estimated Glomerular Filt Rate 42 mL/min (>60); Globulin 2.6 g/dL (1.7-4.1); Glucose 116 mg/dL (80-110); HEMOLYSIS < 15 (0-50); Lipase 137 U/L (23-300); Magnesium 1.8 mg/dL (1.6-2.3); Potassium 4.1 mmol/L (3.4-5.1); Sodium 137 mmol/L (137-145)
[2024-11-05 20:46] LABS: NT-proBNP (BNP-Adult 18+) 404 pg/mL (<450); Troponin I < 0.012 ng/mL (0.01-0.034)
--- NOTE | 2024-11-05 22:09 | ED.GENADULT ---
HPI - General Adult General Chief complaint: Hypertension Stated complaint: High BP 200/? light headed LAYNE Time Seen by Provider: 11/05/24 21:41 Source: patient Mode of arrival: Ambulatory History of Present Illness HPI narrative: Patient is a 79-year-old female presenting today with a mild headache and hypertension. Reports that she does have a history of hypertension. It is that her blood pressure has slowly been creeping up since she got back from a cruise. But today noted that her blood pressure was had a systolic of 216 and she had a headache. Blood pressure has actually come down to as low as 159/70. This was done without any intervention. Denies chest pain shortness of breath numbness tingling weakness or nausea. Related Data Home Medications Medication Instructions Recorded Confirmed multivitamin 1 cap PO DAILY ##0 02/19/11 10/01/24 Previous Rx's Medication Instructions Recorded simvastatin 40 mg tablet 40 mg PO ONCE PM #90 tabs 02/21/24 trazodone 50 mg tablet 50 mg PO ONCE PM #90 tabs 02/21/24 fenofibrate 160 mg tablet See Rx Instructions .Route 03/05/24 .COMPLEX #90 tabs eszopiclone 1 mg tablet 1 mg PO BEDTIME PRN sleep #90 tabs 08/26/24 lisinopril 10 mg tablet 10 mg PO DAILY #90 tabs 10/01/24 Allergies Allergy/AdvReac Type Severity Reaction Status Date / Time No Known Drug Allergies Allergy Verified 11/05/24 20:16 Patient History Medical History (Updated 11/05/24 @ 22:23 by Kell Ortiz DO) Insomnia due to medical condition Obstructive sleep apnea, adult (~05/15/20) CVA (cerebral vascular accident) Benign paroxysmal vertigo Chronic kidney disease Concussion (~05/2017) Hyperlipidemia Surgical menopause Infection, Pseudomonas Primary osteoarthritis of both knees Degenerative arthritis of right knee Fracture (1959) Cataracts, bilateral (2011) Vertigo (2014) Ovarian cyst (1967) Infertility (1967) History of heavy periods (1974) Kidney disease (2009) Chicken pox (1954) Measles (1954) Osteopenia (2009) Osteoarthritis (2012) Migraines (1984) Stroke (Unknown) Breast cancer (2011) History of malignant neoplasm of breast (10/05/17) Postconcussion syndrome Surgical History (Updated 06/01/22 @ 14:33 by Renetta Ruiz RN) History of right mastectomy History of arthroplasty of right knee (06/21/19) S/P total knee arthroplasty History of right oophorectomy History of left oophorectomy History of eye surgery H/O right knee surgery History of colonoscopy History of hysterectomy History of non-cataract eye surgery (2015) Anesthesia complication History of non-cataract eye surgery (2016) History of non-cataract eye surgery (2016) History of non-cataract eye surgery (2015) History of dacryocystorhinostomy (2013) History of eye surgery (1954) History of oophorectomy, unilateral (2005) History of oophorectomy, unilateral (1967) History of cataract removal with insertion of prosthetic lens (2014) History of cataract removal with insertion of prosthetic lens (2014) Status post arthroscopy (2014) Status post partial mastectomy (2011) Status post breast biopsy (1989) Status post hysterectomy (1979) Status post tubal ligation (1974) Family History Brother Age: 89 Heart disease Mental health problem Primary progressive aphasia Brother Age: 75 DVT (deep venous thrombosis) Diabetes mellitus Back problem Joint problem Father Cancer Hodgkin's disease Grandfather Heart disease Heart attack Grandmother Stroke Grandfather Cancer Grandmother Stroke Breast cancer Mother Ovarian cancer Sister Brain aneurysm Sister No problems noted. 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: [employer] special mindy needs: No travel history: recent leisure activities: exercise, reading and other other: traveling seatbelt use: always helmet use: Yes water heater temp set < 120 deg: Yes working smoke detector in home: Yes fire extinguisher in home: No carbon monox detector in home: No firearms in home: Yes firearms unloaded and locked: Yes do you feel safe at home: Yes second hand exposure: No alcohol intake: never substance use type: does not use during the past year weight has: remained stable well-balanced diet: about half the time daily servings fruits/ve-4 caffeine: Yes eating out: 1-3 times/week Type(s) of exercise: walking frequency: daily duration: 15-30 minutes/day Exam Initial Vital Signs Initial Vital Signs: Vital Signs Temperature 97.6 F 11/05/24 19:55 Pulse Rate 76 11/05/24 19:55 Respiratory Rate 19 11/05/24 19:55 Blood Pressure 216/86 H 11/05/24 19:55 Pulse Oximetry 96 11/05/24 19:55 Oxygen Delivery Method Room Air 11/05/24 19:55 GENERAL: Alert pleasant 79-year-old female and in no acute distress. HEENT: Head atraumatic,EOMI, pupils reactive, face symmetric, moist mucous membranes CARDIOVASCULAR: Regular rate and rhythm without murmurs, rubs or gallops. RESPIRATORY: Breath sounds equal bilaterally, no wheezes rales or rhonchi. ABDOMEN: Soft, nontender. Normoactive bowel sounds all 4 quadrants. No guarding or rebound. EXTREMITIES: Normal range of motion, no clubbing or edema. Neurovascularly intact NEUROLOGICAL: Alert and oriented x4.Normal gait and speech. Cranial nerves II through XII grossly intact. Good ikjwvj-le-vamn, good vfal-ev-axiv, strength equal bilaterally, no dysarthria or aphasia, sensation in tact to soft touch bilaterally, no visual changes, no facial droop SKIN: Warm, dry, no laceration, no petechiae, no rashes or lesions. Scores NIH Stroke Scale Level of Conciousness: Alert, keenly responsive Ask month/age: Answers both questions correctly. Open/close eyes, close hand: Performs both tasks correctly Best gaze horizontal: Normal Visual uriarte: No visual loss Facial palsy: Normal symetrical movement Left arm drift: No drift for full 10 sec Right arm drift: No drift for full 10 sec Left leg drift: No drift for full 5 sec Right leg drift: No drift for full 5 sec Limb ataxia: Absent Sensory on face/arms/legs: Normal, no sensory loss Best language: No aphasia, normal Dysarthria: Normal Extinction or inattention: No abnormality Total NIH Stroke scale score: 0 Course Orders Ordered: ED Orders 11/05/24 20:06 XR chest 1V Stat EKG-12 Lead Stat 11/05/24 20:16 Complete Blood Count AUTO DIFF Stat Comprehensive Metabolic Panel Stat Lipase Stat Magnesium Stat NT-proBNP (BNP-Adult 18+) Stat PTT Partial Thromboplastin João Stat Prothrombin Time INR Stat Troponin & CK Cardiac Panel Stat Discontinued Medications Acetaminophen (Acetaminophen 325 Mg Tablet) 975 mg PO NOW ONE Stop: 11/05/24 22:20 Last Admin: 11/05/24 22:33 Dose: 975 mg Documented By: ARCENIO Aspirin (Aspirin 81 Mg Chew Tab) 324 mg PO NOW ONE Stop: 11/05/24 20:07 Last Admin: 11/05/24 21:35 Dose: Not Given Documented By: JUSTEN Vital Signs Vital signs: Vital Signs - 8 hr 11/05/24 19:55 11/05/24 20:15 11/05/24 20:31 Temperature 97.6 F Pulse Rate 76 68 65 Respiratory Rate 19 19 Blood Pressure 216/86 H Pulse Oximetry 96 96 Oxygen Delivery Method Room Air 11/05/24 20:32 11/05/24 20:32 11/05/24 21:00 Temperature Pulse Rate 64 63 Respiratory Rate 17 Blood Pressure 165/71 H Pulse Oximetry 96 95 Oxygen Delivery Method Room Air 11/05/24 21:00 11/05/24 21:30 11/05/24 21:30 Temperature Pulse Rate 62 Respiratory Rate 24 Blood Pressure 159/70 H 160/70 H Pulse Oximetry 95 Oxygen Delivery Method 11/05/24 22:00 11/05/24 22:00 11/05/24 22:09 Temperature Pulse Rate 60 Respiratory Rate 22 Blood Pressure 166/72 H 171/75 H Pulse Oximetry 95 Oxygen Delivery Method 11/05/24 22:09 11/05/24 22:30 11/05/24 22:31 Temperature Pulse Rate 62 60 59 L Respiratory Rate 22 40 H 36 H Blood Pressure Pulse Oximetry 95 94 95 Oxygen Delivery Method Room Air Room Air 11/05/24 22:31 Temperature Pulse Rate Respiratory Rate Blood Pressure 155/67 H Pulse Oximetry Oxygen Delivery Method Medical Decision Making Lab Data 11/05/24 20:16 11/05/24 20:16 Labs: Lab Results 11/05/24 Range/Units 20:16 WBC 5.9 (4.5-11.0) X10^3/uL RBC 3.87 L (4.0-5.2) X10^6/uL Hgb 11.8 L (12.0-16.0) g/dL Hct 35.0 L (36-46) % MCV 90.4 (80-100) fL MCH 30.4 (26-34) PG MCHC 33.6 (30-36) % RDW 16.3 H (11.6-14.8) % Plt Count 330 (150-400) X10^3/uL Neut % (Auto) 62.0 (50-75) % Lymph % (Auto) 23.4 L (25-40) % Walsh % (Auto) 9.8 (3-14) % Eos % (Auto) 3.7 (2-4) % Baso % (Auto) 1.1 (0-2) % Neut # (Auto) 3700 (1068-4285) /uL Lymph # (Auto) 1400 (4078-5027) /uL Walsh # (Auto) 600 (0-900) /uL Eos # (Auto) 200 (0-450) /uL Baso # (Auto) 100 (0-100) /uL PT 11.0 (9.4-12.5) SECONDS INR 1.0 (0.9-1.3) APTT 36 (25.1-36.5) SECONDS Sodium 137 (137-145) mmol/L Potassium 4.1 (3.4-5.1) mmol/L Chloride 100 (98-107) mmol/L Carbon Dioxide 29 (22-32) mmol/L BUN 28 H (7-17) mg/dL Creatinine 1.29 H (0.52-1.04) mg/dL Estimated GFR 42 L (>60) mL/min BUN/Creatinine Ratio 21.7 (6-22) Glucose 116 H (80-110) mg/dL Calcium 10.0 (8.4-10.2) mg/dL Magnesium 1.8 (1.6-2.3) mg/dL Total Bilirubin 0.4 (0.2-1.3) mg/dL AST 35 (14-36) IU/L ALT 25 (<35) IU/L Alkaline Phosphatase 67 (38-126) U/L Total Creatine Kinase 73 (30-135) U/L Troponin I < 0.012 (0.01-0.034) ng/mL NT-Pro-B Natriuret Pep 404 (<450) pg/mL Total Protein 7.0 (6.3-8.2) g/dL Albumin 4.4 (3.5-5.0) g/dL Globulin 2.6 (1.7-4.1) g/dL Albumin/Globulin Ratio 1.7 (1.0-2.8) Lipase 137 (23-300) U/L Imaging Data Chest x-ray: Radiologist's Impression: PROCEDURE: XR CHEST 1V INDICATIONS: chest pain TECHNIQUE: One view of the chest was acquired. COMPARISON: [facility], CR, XR CHEST 2V, 08/28/2024, 10:19. [facility], CR, XR CHEST 1V, 08/03/2020, 18:09. FINDINGS: Surgical changes and devices: None. Lungs and pleura: Lungs are clear. No pleural effusions or pneumothorax. Mediastinum: Mediastinal contours appear normal. Heart size is normal. Bones and chest wall: No suspicious bony lesions. Overlying soft tissues appear unremarkable. IMPRESSION: No acute cardiopulmonary abnormality is seen. Approved by: Дмитрий Antonio M.D. on 11/05/2024 at 20:28 ECG Data Attestation: I personally reviewed and interpreted this ECG as follows: Prior ECG tracings: available for review Interpretation: Normal sinus rhythm rate 64 NH interval 170 QRS [address] changes no T-wave inversions MDM Narrative Medical decision making narrative: Patient is a 79-year-old female history of hypertension presenting today was elevated blood pressure and mild headache. Blood work has been reviewed she was no evidence of end-organ damage. EKGs does not show any evidence of ischemia chest x-ray is within normal limits. Her blood pressure has come down without any sort of intervention. However blood pressure was rising again to a systolic of 170 with a mild headache. She was no focal deficits NIH stroke scale 0. At this time recommend that she continue to check her blood pressure at home follow up with her primary care provider for medication adjustment Discharge Plan Departure Patient Disposition: Home Clinical Impression: Essential hypertension Instructions: DI for High Blood Pressure Activity Restrictions/Additional Instructions: *You have been diagnosed with hypertension *What to do: At this time please follow up with your primary care provider in regards to blood pressure medication Please continue to check blood pressure 1 to 2 times daily *Continue to take medications as directed Tylenol as needed for pain *Follow up with your primary care provider in 2-3 days or call [phone] *Return to ER if you should have increasing headache chest pain shortness of breath weakness numbness or tingling or any new, worsening or concerning symptoms Prescriptions: No Action lisinopril 10 mg tablet 10 mg PO DAILY Qty: 90 3RF multivitamin Capsule 1 cap PO DAILY Qty: 0 trazodone 50 mg tablet 50 mg PO ONCE PM Qty: 90 3RF simvastatin 40 mg tablet 40 mg PO ONCE PM Qty: 90 3RF fenofibrate 160 mg tablet See Rx Instructions .ROUTE .COMPLEX Qty: 90 3RF Dose Instruction: TAKE 1 TABLET BY MOUTH DAILY Rx Instructions: TAKE 1 TABLET BY MOUTH DAILY eszopiclone 1 mg tablet 1 mg PO BEDTIME PRN (Reason: sleep) Qty: 90 3RF Referrals: Fidelia Castro MD [Primary Care Provider] - Stand Alone Forms: Patient Portal/API/Survey
--- NOTE | 2024-11-05 22:12 | PC.NURSE ---
Pt ambulatory to restroom without difficulty or assistance
[2024-11-05] MEDS: ACETAMINOPHEN 325 MG TABLET 975 MG PO (22:33)
== END 2024-11-05 22:45 | disposition home or self-care (01) ==
PROVIDERS: Emergency Provider Emergency Medicine; PCP Family Medicine
DX: I10 Essential (primary) hypertension (principal)
CPT/HCPCS: 36415; 71045; 80053; 82550; 83690; 83735; 83880; 84484; 85025; 85610; 85730; 93005; 93010; 99284

== ENCOUNTER 2024-12-19 16:15 | Outpatient (RCR) | payer MEDICARE, SELFPAY ==
[2024-11-28 09:19] VITALS: BMI 29.5
--- NOTE | 2024-11-29 14:55 | ST.OPIE ---
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 Castro Reason for Referral Dysphagia Setting Assessment Location Outpatient Care Visit Type Note Type Initial evaluation Next Note Type Next Note Type Treatment Note Patient Information Identification Type Name History Pt is a 79 year old female referred for speech evaluation d/t dysphagia. Pt reports swallowing difficulties have been going on for about 6 months, specifically coughing when she drinks liquids. Pt noted, a friend, who is a nurse who observed that pt seems to cough more frequently after drinking water. The patient does state that when she drinks water, she frequently feels like it goes down the wrong tube, and this happens at least 1 to 2 times a day. Pt has a PMH that included CVA 20 years ago and breast cancer with mastectomy (2012). Pt received radiation therapy (35 treatment over 7 weeks) in her chest area following the mastectomy. Pt was also diagnosed with GERD about 15 years ago. She denied current GERD s/sx. She reports she saw ENT Dr. Hinton on 11/08/24 and provided report or videostroboscopy, which revealed incompelte glottic closure. She states she is in the process of getting an endoscopy at the GI set up soon. Pt had a MBS completed on 10/04/24 with the following impressions: Clinical Impressions Dysphagia Type Esophageal Findings See AP observations above. Pt encouraged to discuss findings with her PCP Rehabilitation Potential Excellent Patient Appropriate for Therapy Yes: Base of tongue exercises Recommendations Diet Comments no diet change is recommended Aspiration Precautions Additional Precautions When conversing, swallow before speaking; mindful swallows Treatment Plan Therapy Recommendations Outpatient Speech Therapy,Base of Tongue Exercises Pt dx with esophageal dysphagia, however MBS also revealed Pt with weak BOT and reduced hyolaryngeal elevation . Pt reports it frustrates her a lot when she coughs when drinking liquids. Subjective Observations Pt was pleasant and a good historian of past medical history. Reported by Patient/Caregiver Pain/Discomfort No Other Symptoms Coughing,Difficulty swallowing liquids Current Diet Regular (IDDSI 7) Baseline Feeding Method Independent in self-feeding The IDDSI Framework Protocol: IDDSI.1 Objective Assessment Mental Status Alert,Responsive,Cooperative Oral Integrity WFL Dentition Within normal limits Comment OME WFL Food and Liquid Trials Position During Assessment Upright (90 degrees) Liquids Trialed Thin (IDDSI 0) Solid Trials Regular (IDDSI 7) Administration Type Cup single sip,Self-feeding Oral Impairment Within functional limits Oral Phase Comments Pt consumed about 5 oz of thin water via cup and 1 irene cracker. For water Pt exhibited small single cup sips, good oral acceptance and containment. Pt reported she burped 1x while swallowing thin water because some stayed in her mouth. For irene cracker, Pt took adequate bite size with good bolus formation and control, minimal oral stasis. Pharyngeal Impairment Mildly impaired Pharyngeal Phase Comments Pt exhibited no overt s/s of aspiration with all PO trials, however reduced laryngeal elevation upon palpation. Fatigue/Endurance Endurance WNL The IDDSI Framework Protocol: IDDSI.1 Findings Swallowing Function Pharyngeal phase dysphagia Severity of Swallow Impairment Mildly impaired Prognosis Good Based on Cognitive status,Family support Impact on Safety and Functioning No limitations Recommendations Instrumental Assessment No Swallowing Treatment Yes Frequency 1x/week Duration 3 months Recommended Solids Regular (IDDSI 7) Recommended Liquids Thin (IDDSI 0) Other Recommendations ST recommends regular solids and thin liquids with the below mentioned safe swallowing strategies in place . ST educated Pt on swallow exercises, such as effortful swallow and Supra glottic swallow to prevent s/s of aspiration and strengthen hyolaryngeal musculature. ST recommended Pt complete 2-3x/ day 10 reps each. Pt was able to demonstrate back with 100% accuracy. ST to educate Pt on further swallow exercises during future appointments. Safety Precautions/Swallowing Remain upright (90 degrees) Recommendations during all oral intake,Upright position at least 30 minutes after meals,Small bites and sips when eating,Slow rate; swallow between bites, Alternate liquids and solids Medication Recommendations As Tolerated Referrals Recommended Referrals Gastroenterology Education Patient/Caregiver Education Described results of evaluation,Patient expressed understanding of evaluation, Patient expressed agreement with goals & treatment plans, Patient requires further education/training Goals Short-term Goals STG 1: Pt will tolerate applications of NMES for improved swallow function as evidenced by increased toleration of least restrictive PO diet consistencies. STG 2: Pt will tolerate prescribed diet with <5% overt s/s of aspiration/dysphagia with use of compensatory swallowing strategies and minimal cues. STG 3: Pt will complete hyolaryngeal strengthening exercises for improved pharyngeal phase of swallow with minimal cueing with 90% accuracy. Long-term Goals LTG 1: Patient will consume safest and most efficient least restrictive diet with no clinical s/s of aspiration or dysphagia 100% of the time in order to meet primary nutrition/hydration needs.
--- NOTE | 2024-11-29 14:55 | ST.OPPOC ---
Physical, Occupational & Speech Therapy At [facility] Visit Care Team Role Provider Type Fidelia Castro MD Attending Provider Physician Family Provider Primary Care Provider Referring Provider Address: [address] [place] [address], [address], [place], [address] Speech Pathology Plan of Care Plan of Care Dates 11/29/24-03/01/[address] Castro Patient History Pt is a 79 year old female referred for speech evaluation d/t dysphagia. Pt reports swallowing difficulties have been going on for about 6 months, specifically coughing when she drinks liquids. Pt noted, a friend, who is a nurse who observed that pt seems to cough more frequently after drinking water. The patient does state that when she drinks water, she frequently feels like it goes down the wrong tube, and this happens at least 1 to 2 times a day. Pt has a PMH that included CVA 20 years ago and breast cancer with mastectomy (2012). Pt received radiation therapy (35 treatment over 7 weeks) in her chest area following the mastectomy. Pt was also diagnosed with GERD about 15 years ago. She denied current GERD s/sx. She reports she saw ENT Dr. Hinton on 11/08/24 and provided report or videostroboscopy, which revealed incompelte glottic closure. She states she is in the process of getting an endoscopy at the GI set up soon. Pt had a MBS completed on 10/04/24 with the following impressions: Clinical Impressions Dysphagia Type Esophageal Findings See AP observations above. Pt encouraged to discuss findings with her PCP Rehabilitation Potential Excellent Patient Appropriate for Therapy Yes: Base of tongue exercises Recommendations Diet Comments no diet change is recommended Aspiration Precautions Additional Precautions When conversing, swallow before speaking; mindful swallows Treatment Plan Therapy Recommendations Outpatient Speech Therapy,Base of Tongue Exercises Pt dx with esophageal dysphagia, however MBS also revealed Pt with weak BOT and reduced hyolaryngeal elevation. Pt reports it frustrates her a lot when she coughs when drinking liquids . MBS Comments See AP observations above. Pt encouraged to discuss findings with her PCP Additional Precautions When conversing, swallow before speaking; mindful swallows Short-term Goals STG 1: Pt will tolerate applications of NMES for improved swallow function as evidenced by increased toleration of least restrictive PO diet consistencies. STG 2: Pt will tolerate prescribed diet with <5% overt s/s of aspiration/dysphagia with use of compensatory swallowing strategies and minimal cues. STG 3: Pt will complete hyolaryngeal strengthening exercises for improved pharyngeal phase of swallow with minimal cueing with 90% accuracy. Long-term Goals LTG 1: Patient will consume safest and most efficient least restrictive diet with no clinical s/s of aspiration or dysphagia 100% of the time in order to meet primary nutrition/ hydration needs. Comment: Electronically Signed by: LINCOLN Flaherty 11/29/24 8719 If you are in agreement with this Plan of Care, please return a signed and dated copy. I have reviewed this Plan of Care and certify that the skilled therapy services above are required to meet the patient?s needs. Physician Signature Date Printed Name and Credentials Clinical Instructor Signature Printed Name and Credentials
--- NOTE | 2024-12-05 14:08 | ST.IPDYTX ---
Visit Care Team Role Provider Type Fidelia Castro MD Attending Provider Physician Family Provider Primary Care Provider Referring Provider Specialty: Family Practice Address: [address] [place] [address], [place], [address] Email: [email or web address] MEDIA TECHNICIAN Dysphagia Treatment MEDIA TECHNICIAN Dysphagia Treatment Start: 12/05/24 14:01 Freq: Status: Active Protocol: Document 12/05/24 14:01 MA (Rec: 12/05/24 14:08 MA Desktop) Dysphagia Treatment Session Time Visit Start Time 13:45 Visit Stop Time 14:20 Total Visit Minutes 35 Visit Information Visit Number 2 Plan of Care Dates 11/29/24-03/01/25 Setting Assessment Location Outpatient Care Next Note Type Next Note Type Treatment Note Patient Information Identification Type Name Subjective Observations Pt arrived to therapy on time. Pt reports she has an upper endoscopy scheduled on 12/27/24. Treatment Liquids Trialed Thin (IDDSI 0) Solids Trialed Regular (IDDSI 7) Oral Strategies Upright at 90 degrees Pharyngeal Strategies Effortful Swallow Treatment Activities Neuromuscular Electrical Stimulation (NMES) in conjunction with PO trials and hyolaryngeal strengthening exercises such as Nilda, supraglottic swallow and effortful swallow The IDDSI Framework Protocol: IDDSI.1 Assessment Patient Response to Treatment Excellent Rehab Potential Excellent Assessment of Improvement ST educated Pt on NMES and what to expect with Pt compliant. ST placed electrodes in the 3h position with Pt tolerating stim at a level 8.0mA. Pt consumed saltine crackers and diced peaches with about 5 oz of thin water via cup. Pt reports her swallowing has been going well at home, however she requires more liquids during meals to assist with food going down. She exhibited occasional throat clearing throughout session, no coughing observed. Pt completed 10 reps of each exercise. ST recommends Pt continue swallow exercises at home. Recommendations Recommendations Continue Current Diet Liquids Order Thin (IDDSI 0) Diet Order Regular (IDDSI 7) Medication Recommendations As Tolerated Comments no diet change is recommended Aspiration Precautions Additional Precautions When conversing, swallow before speaking; mindful swallows
--- NOTE | 2024-12-12 14:54 | ST.IPDYTX ---
Visit Care Team Role Provider Type Fidelia Castro MD Attending Provider Physician Family Provider Primary Care Provider Referring Provider Specialty: Family Practice Address: [address] [place] [address], 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 Pt reports she has an upper endoscopy scheduled on 12/27/24. Pt reports her swallowing has been going well with no coughing while drinking liquids. Treatment Liquids Trialed Thin (IDDSI 0) Solids Trialed Regular (IDDSI 7) Oral Strategies Upright at 90 degrees Pharyngeal Strategies Effortful Swallow Treatment Activities Neuromuscular Electrical Stimulation (NMES) in conjunction with PO trials and hyolaryngeal strengthening exercises such as Nilda, supraglottic swallow and effortful swallow. The IDDSI Framework Protocol: IDDSI.1 Assessment Patient Response to Treatment Excellent Rehab Potential Excellent Assessment of Improvement ST educated Pt on NMES and what to expect with Pt compliant. ST placed electrodes in the 3h position with Pt tolerating stim at a level 8.0mA. Pt consumed irene crackers and diced peaches with about 5 oz of thin water via cup. Pt reports her swallowing has been going well at home, however she requires more liquids during meals to assist with food going down. She exhibited occasional throat clearing throughout session, no coughing observed. Pt completed 10 reps of each exercise. ST recommends Pt continue swallow exercises at home. Recommendations Recommendations Continue Current Diet Liquids Order Thin (IDDSI 0) Diet Order Regular (IDDSI 7) Medication Recommendations As Tolerated Comments no diet change is recommended Aspiration Precautions Additional Precautions When conversing, swallow before speaking; mindful swallows
--- NOTE | 2024-12-19 16:39 | ST.IPDYTX ---
Visit Care Team Role Provider Type Fidelia Castro MD Attending Provider Physician Family Provider Primary Care Provider Referring Provider Specialty: Family Practice Address: [address] [place] [address], [facility], [place], [address] Email: [email or web address] CONSTRUCTION ENGINEER Dysphagia Treatment CONSTRUCTION ENGINEER Dysphagia Treatment Start: 12/05/24 14:01 Freq: Status: Active Protocol: Document 12/19/24 16:30 MA (Rec: 12/19/24 16:38 MA Desktop) Dysphagia Treatment Session Time Visit Start Time 16:15 Visit Stop Time 16:50 Total Visit Minutes 35 Visit Information Visit Number 4 Plan of Care Dates 11/29/24-03/01/25 Setting Assessment Location Outpatient Care Next Note Type Next Note Type Treatment Note Patient Information Identification Type Name Subjective Observations Pt arrived to therapy on time. Pt reports she has an upper endoscopy scheduled on 12/27/24. Pt reports her swallowing has been going well with no coughing while drinking liquids. Pt reports she thinks today should be her last session d/t her not having any swallow issues. Treatment Liquids Trialed Thin (IDDSI 0) Solids Trialed Regular (IDDSI 7) Oral Strategies Upright at 90 degrees Pharyngeal Strategies Effortful Swallow Treatment Activities Neuromuscular Electrical Stimulation (NMES) in conjunction with PO trials and hyolaryngeal strengthening exercises such as Nilda, supraglottic swallow and effortful swallow. The IDDSI Framework Protocol: IDDSI.1 Assessment Patient Response to Treatment Excellent Rehab Potential Excellent Assessment of Improvement ST educated Pt on NMES and what to expect with Pt compliant. ST placed electrodes in the 3h position with Pt tolerating stim at a level 8.0mA. Pt consumed irene crackers and diced peaches with about 5 oz of thin water via cup. Pt reports her swallowing has been going well at home, however she requires more liquids during meals to assist with food going down. She exhibited occasional throat clearing throughout session, no coughing observed. Pt completed 10 reps of each exercise. ST recommends Pt continue swallow exercises at home. ST recommends Pt communicate with PCP if increase in swallowing issues arise and to return to therapy . Recommendations Recommendations Continue Current Diet Liquids Order Thin (IDDSI 0) Diet Order Regular (IDDSI 7) Medication Recommendations As Tolerated Comments no diet change is recommended Aspiration Precautions Additional Precautions When conversing, swallow before speaking; mindful swallows Treatment Plan Dysphagia Goals STG 1: Pt will tolerate applications of NMES for improved swallow function as evidenced by increased toleration of least restrictive PO diet consistencies. - GOAL MET STG 2: Pt will tolerate prescribed diet with <5% overt s/s of aspiration/ dysphagia with use of compensatory swallowing strategies and minimal cues.- GOAL MET STG 3: Pt will complete hyolaryngeal strengthening exercises for improved pharyngeal phase of swallow with minimal cueing with 90% accuracy.- GOAL MET LTG 1: Patient will consume safest and most efficient least restrictive diet with no clinical s/s of aspiration or dysphagia 100% of the time in order to meet primary nutrition/ hydration needs. - GOAL MET Referrals/Other Recommended Referrals GI Consult
--- NOTE | 2024-12-19 16:39 | ST.OPDS ---
Visit Care Team Role Provider Type Fidelia Castro MD Attending Provider Physician Family Provider Primary Care Provider Referring Provider Address: [address] [place] [address], [place], [address] Pt discharged this date d/t Pt reporting improved swallow abilities. Please see last treatment note.
== END 2024-12-25 10:57 | disposition home or self-care (01) ==
LOC: SP 16:15
PROVIDERS: Family Provider Family Medicine; PCP Family Medicine; Referring Provider Family Medicine; Visit Provider Family Medicine
DX: R13.10 Dysphagia, unspecified (principal)
CPT/HCPCS: 92526; 92610

== ENCOUNTER 2024-12-20 15:02 | Emergency (ER) | payer MEDICARE, SELFPAY ==
[2024-11-28 09:19] VITALS: BMI 29.5
[2024-12-20 15:06] VITALS: BP 212/85; PULSE 66; RESP 18; TEMP 36.5; O2SAT 97; BMI 27.7
[2024-12-20 15:23] VITALS: BP 196/77
[2024-12-20] MEDS: IBUPROFEN 400 MG TABLET PO (16:12)
[2024-12-20] MEDS: ACETAMINOPHEN 325 MG TABLET PO (16:12)
[2024-12-20] MEDS: AMLODIPINE 5 MG TABLET PO (16:13)
[2024-12-20 17:11] VITALS: BP 190/74; PULSE 62; O2SAT 98
[2024-12-20 18:11] VITALS: BP 203/87; PULSE 57; RESP 18
[2024-12-20 19:12] VITALS: BP 186/77; PULSE 60; RESP 18; TEMP 36.7; O2SAT 97
--- NOTE | 2024-12-20 19:19 | ED_ITS ---
HPI - General Adult General Chief complaint: Hypertension Stated complaint: high BP x 6 weeks, headache- pressure Time Seen by Provider: 12/20/24 15:53 Source: patient Mode of arrival: Ambulatory History of Present Illness HPI narrative: 79-year-old woman with a history of hypertension, hyperlipidemia and chronic kidney disease comes in complaining of blood pressure is remaining elevated and low-grade headache over the frontal area today. No chest pain or dyspnea. No palpitations. She has been working with her primary care physician with changing blood pressure medication with recent increase of lisinopril to b.i.d. She does have follow up appointment with her primary care physician within the next week. Related Data Home Medications Medication Instructions Recorded Confirmed multivitamin 1 cap PO DAILY ##0 02/19/11 11/26/24 Previous Rx's Medication Instructions Recorded eszopiclone 1 mg tablet 1 mg PO BEDTIME PRN sleep #90 tabs 08/26/24 fenofibrate 160 mg tablet 160 mg PO DAILY #90 tabs 12/03/24 simvastatin 40 mg tablet 40 mg PO QPM #90 tabs 12/03/24 trazodone 50 mg tablet 50 mg PO QPM #90 tabs 12/03/24 lisinopril 20 mg tablet 20 mg PO BID #90 tabs 12/12/24 amlodipine 5 mg tablet 5 mg PO DAILY #30 tabs 12/20/24 Allergies Allergy/AdvReac Type Severity Reaction Status Date / Time No Known Drug Allergies Allergy Verified 11/26/24 10:32 Review of Systems Review of Systems Narrative: Pertinent positive and negative findings as per HPI Patient History Medical History (Updated 12/20/24 @ 19:26 by Jennifer Kennedy MD) Insomnia due to medical condition Obstructive sleep apnea, adult (~05/15/20) CVA (cerebral vascular accident) Benign paroxysmal vertigo Chronic kidney disease Concussion (~05/2017) Hyperlipidemia Surgical menopause Infection, Pseudomonas Primary osteoarthritis of both knees Degenerative arthritis of right knee Fracture (1959) Cataracts, bilateral (2011) Vertigo (2014) Ovarian cyst (1967) Infertility (1967) History of heavy periods (1974) Kidney disease (2009) Chicken pox (1954) Measles (1954) Osteopenia (2009) Osteoarthritis (2011) Migraines (1984) Stroke (Unknown) Breast cancer (2011) History of malignant neoplasm of breast (10/05/17) Postconcussion syndrome Surgical History (Updated 06/01/22 @ 14:33 by Renetta Ruiz RN) History of right mastectomy History of arthroplasty of right knee (06/21/19) S/P total knee arthroplasty History of right oophorectomy History of left oophorectomy History of eye surgery H/O right knee surgery History of colonoscopy History of hysterectomy History of non-cataract eye surgery (2015) Anesthesia complication History of non-cataract eye surgery (2016) History of non-cataract eye surgery (2016) History of non-cataract eye surgery (2015) History of dacryocystorhinostomy (2013) History of eye surgery (1954) History of oophorectomy, unilateral (2005) History of oophorectomy, unilateral (1967) History of cataract removal with insertion of prosthetic lens (2014) History of cataract removal with insertion of prosthetic lens (2014) Status post arthroscopy (2014) Status post partial mastectomy (2011) Status post breast biopsy (1989) Status post hysterectomy (1979) Status post tubal ligation (1974) Family History Brother Age: 89 Heart disease Mental health problem Primary progressive aphasia Brother Age: 75 DVT (deep venous thrombosis) Diabetes mellitus Back problem Joint problem Father Cancer Hodgkin's disease Grandfather Heart disease Heart attack Grandmother Stroke Grandfather Cancer Grandmother Stroke Breast cancer Mother Ovarian cancer Sister Brain aneurysm Sister No problems noted. Family/Other Sleep apnea Restless leg Obesity Hypertension Diabetes mellitus Heart disease Dementia Social History marital status: number of children: 2 household members: spouse lives independently: Yes caregiver/support person: No housing: house pets and animals: No education level: college occupational status: previously employed current occupational exposures/hazards: No mindy/latter-day: Mormon special mindy needs: No travel history: recent leisure activities: exercise, reading and other other: traveling seatbelt use: always helmet use: Yes water heater temp set < 120 deg: Yes working smoke detector in home: Yes fire extinguisher in home: No carbon monox detector in home: No firearms in home: Yes firearms unloaded and locked: Yes do you feel safe at home: Yes second hand exposure: No alcohol intake: never substance use type: does not use during the past year weight has: remained stable well-balanced diet: about half the time daily servings fruits/ve-4 caffeine: Yes eating out: 1-3 times/week Type(s) of exercise: walking frequency: daily duration: 15-30 minutes/day Smoking Status: Never smoker Exam Initial Vital Signs Initial Vital Signs: Vital Signs Temperature 97.7 F 12/20/24 15:06 Pulse Rate 66 12/20/24 15:06 Respiratory Rate 18 12/20/24 15:06 Blood Pressure 212/85 H 12/20/24 15:06 Pulse Oximetry 97 12/20/24 15:06 Oxygen Delivery Method Room Air 12/20/24 15:06 General: Healthy appearing, in no acute distress. Able to give a complete and coherent history. Well-nourished well-developed HEENT: Moist mucous membranes, normal sclera with reactive pupils, Respiratory: Lungs are clear to auscultation, no wheezing no rales no rhonchi. Full and symmetrical air movement Cardiac: Regular rate and rhythm no murmurs no bruits Abdomen: Soft, nontender, no rebound or guarding, no flank pain Skin: Warm and dry, no rashes Neurologic: Grossly neurologically intact with no obvious asymmetries or abnormalities, Complains of dull frontal headache Extremities: No trauma, well perfused Psych: Cooperative, appropriate insight and affect Course Orders Ordered: Discontinued Medications Acetaminophen (Acetaminophen 325 Mg Tablet) 325 mg PO NOW ONE Stop: 12/20/24 15:54 Last Admin: 12/20/24 16:12 Dose: 325 mg Documented By: PAMELLA Amlodipine Besylate (Amlodipine 5 Mg Tablet) 5 mg PO NOW ONE Stop: 12/20/24 15:54 Last Admin: 12/20/24 16:13 Dose: 5 mg Documented By: PAMELLA Ibuprofen (Ibuprofen 400 Mg Tablet) 400 mg PO NOW ONE Stop: 12/20/24 15:54 Last Admin: 12/20/24 16:12 Dose: 400 mg Documented By: PAMELLA Vital Signs Vital signs: Vital Signs - 8 hr 12/20/24 15:06 12/20/24 15:23 12/20/24 17:11 Temperature 97.7 F Pulse Rate 66 62 Respiratory Rate 18 Blood Pressure 212/85 H 196/77 H 190/74 H Pulse Oximetry 97 98 Oxygen Delivery Method Room Air Room Air 12/20/24 18:11 Temperature Pulse Rate 57 L Respiratory Rate 18 Blood Pressure 203/87 H Pulse Oximetry Oxygen Delivery Method Medical Decision Making MDM Narrative Medical decision making narrative: 79-year-old woman with recent overall increased to blood pressure, over the last couple of months she has increased from 5 mg to 40 mg of lisinopril in his still not achieving adequate control. She had a low-grade headache today was instructed by her primary care provider's nurse to come into the emergency department. No chest pain shortness of breath or other complications. Blood pressure is elevated in the emergency department. She is given Tylenol and 5 mg of amlodipine with slight reduction in overall blood pressure to186/77 and improvement of headache. There was no signs of acute stroke, acute coronary syndrome or reasons for further workup or hospitalization. she does have follow up appointment with Dr. Borden on December 24. We will give her a prescription for 5 mg of amlodipine have her continue to check daily blood pressures and keep her outpatient appointment. Reviewed reasons to return to the emergency department. She is safe for discharge Discharge Plan Departure Patient Disposition: Home Clinical Impression: Hypertension Instructions: DI for High Blood Pressure Activity Restrictions/Additional Instructions: thank you for coming in today you are given a dose of 5 mg of amlodipine which did slightly bring your blood pressure down. Between the lower blood pressure and the Tylenol your headache has improved somewhat although there is still some pressure. I would recommend that you continue the 5 mg of amlodipine in the evenings, continue current dose of lisinopril 20 mg in the morning and the evening. Please do continue to keep track of daily blood pressures. He was make sure you keep your appointment with Dr. Castro on December 24 as scheduled if you feel that you are getting worse, your headache progresses, you are having weakness, confusion chest pain, shortness of breath or other findings of concern please do return to the emergency department Prescriptions: New amlodipine 5 mg tablet 5 mg PO DAILY Qty: 30 0RF No Action multivitamin Capsule 1 cap PO DAILY Qty: 0 eszopiclone 1 mg tablet 1 mg PO BEDTIME PRN (Reason: sleep) Qty: 90 3RF trazodone 50 mg tablet 50 mg PO QPM Qty: 90 3RF fenofibrate 160 mg tablet 160 mg PO DAILY Qty: 90 3RF simvastatin 40 mg tablet 40 mg PO QPM Qty: 90 3RF lisinopril 20 mg tablet 20 mg PO BID Qty: 90 3RF Referrals: Fidelia Castro MD [Primary Care Provider] - Stand Alone Forms: Patient Portal/API/Survey
--- NOTE | 2024-12-20 19:28 | PC.NURSE ---
Pt here for high blood pressure, headache and pressure feeling in her head. Reports that after getting amlodipine, symptoms have gotten better. Provider notified.
== END 2024-12-20 19:35 | disposition home or self-care (01) ==
PROVIDERS: Emergency Provider Emergency Medicine; Family Provider Family Medicine; PCP Family Medicine
DX: I10 Essential (primary) hypertension (principal); R51.9 Headache, unspecified
CPT/HCPCS: 99283

== ENCOUNTER → 2025-01-01 07:45 | Outpatient (CLI) | payer MEDICARE, SELFPAY ==
[2024-11-28 09:19] VITALS: BMI 29.5
--- NOTE | 2025-01-01 07:46 | DI.ECHO.S_ITS ---
[facility]+ [facility] : : [address] : : [place] : : [id number] : : Phone: [phone] Echocardiogram Report + + :Name: JOAN MRAIA Study Date: 01/01/2025 Height: 66 in : :Hospital ReadingLocation: Weight: 172 lb : : Gender: Female BSA: 1.9 m2 : :: 1945 Age: 79 yrs BP: 125/59 mmHg: :Reason For Study: HYPERTENSION : :Ordering Physician: JAMES, : :CHIP Performed By: Eliza Joseph : :Referring: CHIP RAMIREZ : + + Interpretation Summary Normal sinus rhythm. Normal LV size and wall thickness; normal wall motion and LV systolic function. EF is 60-65%. Normal chamber sizes. No significant valvular abnormalities. Compared to prior echo 08/04/2020 no significant changes have occurred. Procedure: A two-dimensional transthoracic echocardiogram with color flow and Doppler was performed. The study quality was technically adequate. Comparison is made with the echocardiogram of 08/04/2020. The patient was in sinus bradycardia with heart rates between 53-59 bpm during the exam. Left Ventricle: The left ventricle is normal in size and wall thickness. The ejection fraction is estimated to be 60-65%. Right Ventricle: The right ventricle is normal in size and function. Atria: The left atrial size is normal. Right atrial size is normal. There is no Doppler evidence for an interatrial shunt. Mitral Valve: The mitral valve leaflets appear to open well. There is mild mitral regurgitation. Aortic Valve: The aortic valve is trileaflet. The aortic valve opens well. There is no aortic valve stenosis. There is trace aortic regurgitation. Tricuspid Valve: The tricuspid valve leaflets are thin and pliable. There is mild tricuspid regurgitation. The right ventricular systolic pressure is estimated to be at least 36 mmHg based on an estimated right atrial pressure of 3 mm Hg. Pulmonic Valve: The pulmonic valve leaflets are thin and pliable; valve motion is normal. There is mild pulmonic regurgitation. Great Vessels: The aortic root is normal size. The dimensions of the ascending aorta are normal. The IVC is of normal diameter and collapses greater than 50% with a sniff. This suggests a low right atrial pressure of 3 mm Hg. Pericardium/ Pleura There is no pericardial effusion. There is no pleural effusion. MMode/2D Measurements & Calculations LVIDd: 4.3 cm LVOT diam: 2.0 cm LVIDs: 2.6 cm Ao root diam: 2.3 cm FS: 40.3 % asc Aorta Diam: 3.1 cm IVSd: 0.83 cm Ao Arch Diam (Prox Trans): 2.6 cm LVPWd: 0.88 cm LV bray. diameter/BSA (cm/m^2): 2.3 LV sys. diameter/BSA (cm/m^2): 1.4 LA A2 area: 17.2 cm2 RA long axis: 4.7 cm LA A4 area: 14.7 cm2 RA area: 15.0 cm2 LA length (vol): 4.6 cm RA vol: 40.7 ml LA vol: 46.7 ml RA : 21.7 ml/m2 LA vol index: 24.9 ml/m2 IVC diam: 1.9 cm RVD1 (basal): 3.3 cm RVD2 (mid): 2.7 cm TAPSE: 2.3 cm Doppler Measurements & Calculations Ao V2 max: 169.0 cm/sec LVOT Max Patrick: 70.5 cm/sec Ao V2 mean: 114.0 cm/sec LV V1 max P.0 mmHg Ao max P.4 mmHg LV V1 VTI: 17.3 cm Ao mean P.9 mmHg HECTOR(I,D): 1.4 cm2 Ao V2 VTI: 36.4 cm HECTOR(V,D): 1.3 cm2 sev ratio: 0.48 HECTOR indexed to BSA (cm^2/m^2): 0.77 MV E max patrick: 75.0 cm/sec TR max patrick: 286.3 cm/sec MV A max patrick: 91.3 cm/sec TR max P.8 mmHg MV E/A: 0.82 PA V2 max: 100.5 cm/sec Med Peak E' Patrick: 9.6 cm/sec PA V2 mean: 65.8 cm/sec E/E' med: 7.8 PA mean P.9 mmHg Lat Peak E' Patrick: 8.0 cm/sec PA pr(Accel): 28.9 mmHg E/E' lat: 9.4 E/e' average: 8.6 MV dec time: 0.29 sec SV(OT): 52.5 ml Electronically signed by: Migdalia Fried M.D. on Reading Physician:01/02/2025 12:32 AM
== END ==
PROVIDERS: Family Provider Family Medicine; PCP Family Medicine; Referring Provider Family Medicine; Visit Provider Family Medicine
DX: I08.1 Rheumatic disorders of both mitral and tricuspid valves (principal); I10 Essential (primary) hypertension
CPT/HCPCS: 93306

== ENCOUNTER → 2025-04-02 11:45 | Outpatient (CLI) | payer MEDICARE, SELFPAY ==
[2024-11-28 09:19] VITALS: BMI 29.5
[2025-04-02 12:07] LABS: Add Manual Diff / Slide Review NO; Hematocrit 36.1 % (36-46); Hemoglobin 12.1 g/dL (12.0-16.0); Lymphocytes Absolute Auto 1300 /uL (1100-4500); Mean Corpuscular HGB Conc 33.5 % (30-36); Mean Corpuscular Hemoglobin 30.4 PG (26-34); Mean Corpuscular Volume 90.7 fL (80-100); Platelet Count 363 X10^3/uL (150-400)
[2025-04-02 12:38] LABS: Alanine Aminotransferase 27 IU/L (<35); Albumin 4.7 g/dL (3.5-5.0); Albumin Globulin Ratio 2.0 (1.0-2.8); Alkaline Phosphatase 68 U/L (38-126); Blood Urea Nitrogen 36 mg/dL (7-17); Calcium 10.4 mg/dL (8.4-10.2); Carbon Dioxide 25 mmol/L (22-32); Chloride 103 mmol/L (98-107); Estimated Glomerular Filt Rate 47 mL/min (>60); Globulin 2.3 g/dL (1.7-4.1); Glucose 96 mg/dL (70-99); HEMOLYSIS < 15 (0-50); Potassium 4.9 mmol/L (3.4-5.1); Sodium 139 mmol/L (137-145); Total Protein 7.0 g/dL (6.3-8.2)
== END ==
PROVIDERS: PCP Family Medicine; Referring Provider Family Medicine; Visit Provider Family Medicine
DX: I10 Essential (primary) hypertension (principal)
CPT/HCPCS: 36415; 80053; 85025

== ENCOUNTER → 2025-04-05 09:32 | Outpatient (CLI) | payer MEDICARE, SELFPAY ==
[2024-11-28 09:19] VITALS: BMI 29.5
--- NOTE | 2025-04-05 10:02 | EKG_ITS ---
[address] [address] Test Date: 2025-04-05 Pat Name: Talya Obi Department: [facility] Room: Gender: Female Control Room Tender: KIRBY : 1945 Requested By: Order Number: [id number] Reading MD: Hero Brower MD Measurements Intervals [place] Rate: 59 P: 54 RI: 170 QRS: 40 QRSD: 86 T: 40 QT: 384 QTc: 380 Interpretive Statements Sinus bradycardia Electronically Signed On 04-08-2025 7:45:05 PDT by Hero Brower MD
== END ==
PROVIDERS: PCP Family Medicine; Referring Provider Family Medicine; Visit Provider Family Medicine
DX: I10 Essential (primary) hypertension (principal)
CPT/HCPCS: 93005

== ENCOUNTER 2025-05-30 06:04 | Day surgery (SDC) | payer MEDICARE, SELFPAY ==
[2024-11-28 09:19] VITALS: BMI 29.5
[2025-05-15 08:39] VITALS: BMI 25.3
--- NOTE | 2025-05-30 05:46 | P.HP_ITS ---
History of Present Illness
--- NOTE | 2025-05-30 05:46 | PM.HP.1 ---
History of Present Illness History of Present Illness Chief complaint: Right fourth toe deformity Narrative: 79 year old female would like to have it trimmed and the toe partially amputated in the future due to chronic painful ambulation. The toe is sitting lower, and it hurts to walk on it. Patient would also like her calluses trimmed as well. Patient denies n/v/f/c/sob/cp. [facility] Medical History (Updated 01/04/25 @ 00:01 by ) Insomnia due to medical condition Obstructive sleep apnea, adult (~05/15/20) CVA (cerebral vascular accident) Benign paroxysmal vertigo Chronic kidney disease Concussion (~05/2017) Hyperlipidemia Surgical menopause Infection, Pseudomonas Primary osteoarthritis of both knees Degenerative arthritis of right knee Fracture (1959) Cataracts, bilateral (2011) Vertigo (2014) Ovarian cyst (1967) Infertility (1967) History of heavy periods (1974) Kidney disease (2009) Chicken pox (1954) Measles (1954) Osteopenia (2009) Osteoarthritis (2011) Migraines (1984) Stroke (Unknown) Breast cancer (2011) History of malignant neoplasm of breast (10/05/17) Postconcussion syndrome Surgical History (Updated 05/15/25 @ 08:42 by Janice Lux RN) History of right mastectomy History of arthroplasty of right knee (06/21/19) S/P total knee arthroplasty (2018) History of right oophorectomy History of left oophorectomy History of eye surgery H/O right knee surgery History of colonoscopy History of hysterectomy History of non-cataract eye surgery (2015) Anesthesia complication History of non-cataract eye surgery (2016) History of non-cataract eye surgery (2016) History of non-cataract eye surgery (2015) History of dacryocystorhinostomy (2013) History of eye surgery (1954) History of oophorectomy, unilateral (2005) History of oophorectomy, unilateral (1967) History of cataract removal with insertion of prosthetic lens (2014) History of cataract removal with insertion of prosthetic lens (2014) Status post arthroscopy (2014) Status post partial mastectomy (2011) Status post breast biopsy (1989) Status post hysterectomy (1979) Status post tubal ligation (1974) Family History Brother Age: 89 Heart disease Mental health problem Primary progressive aphasia Brother Age: 75 DVT (deep venous thrombosis) Diabetes mellitus Back problem Joint problem Father Cancer Hodgkin's disease Grandfather Heart disease Heart attack Grandmother Stroke Grandfather Cancer Grandmother Stroke Breast cancer Mother Ovarian cancer Sister Brain aneurysm Sister No problems noted. Family/Other Sleep apnea Restless leg Obesity Hypertension Diabetes mellitus Heart disease Dementia Social History marital status: number of children: 2 household members: spouse lives independently: Yes caregiver/support person: No housing: house pets and animals: No education level: college occupational status: previously employed current occupational exposures/hazards: No mindy/scientology: Orthodox special mindy needs: No travel history: recent leisure activities: exercise, reading and other other: traveling seatbelt use: always helmet use: Yes water heater temp set < 120 deg: Yes working smoke detector in home: Yes fire extinguisher in home: No carbon monox detector in home: No firearms in home: Yes firearms unloaded and locked: Yes do you feel safe at home: Yes Smoking Status: Never smoker second hand exposure: No alcohol intake: never substance use type: does not use during the past year weight has: remained stable well-balanced diet: about half the time daily servings fruits/ve-4 caffeine: Yes eating out: 1-3 times/week Type(s) of exercise: walking frequency: daily duration: 15-30 minutes/day Meds Home Medications and Allergies Home Medications ?Medication ?Instructions ?Recorded ?Confirmed ?Type multivitamin 1 cap PO DAILY ##0 02/19/11 04/24/25 History fenofibrate 160 mg tablet 160 mg PO DAILY #90 tabs 12/03/24 04/24/25 Rx simvastatin 40 mg tablet 40 mg PO QPM #90 tabs 12/03/24 04/24/25 Rx trazodone 50 mg tablet 50 mg PO QPM #90 tabs 12/03/24 04/24/25 Rx amlodipine 10 mg tablet 10 mg PO DAILY #90 tabs 12/24/24 04/24/25 Rx lisinopril 20 mg tablet 20 mg PO BID #180 tabs 02/12/25 04/24/25 Rx COVID vac 24-25(12up)(Pfi)(PF) 30 0.3 ml IM ONCE #3 mL 09/02/25 10/01/25 Rx mcg/0.3 mL IM syringe eszopiclone 1 mg tablet 1 mg PO BEDTIME PRN sleep #90 tabs 05/17/25 Rx Allergies Allergy/AdvReac Type Severity Reaction Status Date / Time No Known Drug Allergies Allergy Verified 04/24/25 11:12 Review of Systems Musculoskeletal Comments: Plantarflexed right toe 4. Assessment & Plan Assessment & Plan narrative: 1. Right fourth toe deformity Patient seen and evaluated. Surgical plan: right foot partial amputation fourth digit. Risks and benefits of the procedure discussed with all questions answered to patient's satisfaction. Reviewed potential complications that may include but not limited to the following: DVT, failure to resolve all symptoms, infection, nerve injury, bleeding, recurrence, or wound. Reviewed surgical technique and general aftercare protocols. All questions answered to patient's satisfaction with no guarantees made. Patient verbalized understanding and agreed with surgical plan. RTC for post-op. Time-Based Coding :: [TOTAL MINUTES] spent with patient and on the chart (including review of chart, obtaining history, exam, reviewing outside data, placing orders, documenting exam and treatment plan, and counseling patient) on [DATE].
[2025-05-30] MEDS: LACTATED RINGERS 1,000 ML 42 ML IV (06:58)
[2025-05-30 07:04] VITALS: BP 150/68; PULSE 60; RESP 16; TEMP 36.4; O2SAT 97
--- NOTE | 2025-05-30 07:38 | P.OP.PRE_ITS ---
Pre-operative Note
--- NOTE | 2025-05-30 07:38 | PM.PREOP ---
Pre-operative Note Interval Note History & Physical reviewed/Exam performed by Physician: Yes Changes to H&P: No
--- NOTE | 2025-05-30 08:13 | SUR.OPER ---
Supine on padded OR bed, head on pillow, arms secured on padded arm boards at <90 degrees abduction, legs uncrossed, safety belt at thigh, tape over blanket over lower legs.
[2025-05-30] MEDS: SODIUM CHLORIDE 0.9% 1,000 ML, GENTAMICIN 80 MG IRR (08:25)
[2025-05-30] MEDS: LIDOCAINE 1% 20 ML INJ (08:27)
[2025-05-30 08:44] VITALS: BP 119/57; PULSE 64; RESP 15; TEMP 36.4; O2SAT 96
[2025-05-30 08:50] VITALS: BP 125/66; PULSE 77; RESP 15; TEMP 36.1; O2SAT 100
[2025-05-30 09:02] VITALS: BP 121/59; PULSE 72; RESP 17; TEMP 36.2; O2SAT 97
--- NOTE | 2025-05-30 21:55 | P.OP_ITS ---
Operative Date/Time/Diagnoses
--- NOTE | 2025-05-30 21:55 | PM.OP.1 ---
Operative Date/Time/Diagnoses Date of procedure: 05/30/25 Time of procedure: 07:45 Pre-op diagnosis: 1. Right fourth toe acquired deformity and pain Post-op diagnosis: same Procedure & Clinicians Procedure: 1. Right fourth toe partial amputation Same procedure(s) as scheduled: Yes Surgeon: Wai Levy Assisted?: No Anesthesia Type: Sedation and Local Operative Notes Findings: Consistent with diagnosis Closure Type: primary Specimen(s): none sent Applied: none Estimated Blood Loss (mL): 3 Tourniquet time (min): 9 Procedure in detail: Patient was identified and brought into operating on [facility] and transferred onto operating table in supine position. Deep sedation and local juan was administered using 6 cc 1% lidocaine plain. An ankle tourniquet was applied over well-padded surface and set to 250 mmHg. Left foot was prepped and draped with usual sterile fashion, followed by official timeout with the surgical team. Attention was directed to right fourth toe. A #15 scalpel was used to make a fish-mouth incision from skin down to the bone. Decision was made to disarticulate at proximal interphalangeal joint and resect the head of remaining phalanx head. After adequate excision, the surgical site was irrigated using copious normal saline and closed from deep to superficial using a 4-0 vicryl and 4-0 prolene. Tourniquet was released with adequate capillary fill time noted to all toes. 6 cc of 0.25% marcaine plain was administered for post-op block. Incision site was dressed with iodine soaked Adaptic, gauze, abdominal pad, Kerlix, and Tom bandage. Patient tolerated procedure without complication and was transferred to post-anesthesia care unit with all vital signs stable. Complications: none Post-operative Condition: stable Disposition: same day surgery Plan for aftercare: NWB to surgical limb. Elevate above heart. Ice behind knee. Keep dressing clean, dry, and intact. Take medications and follow-up as discussed.
== END 2025-05-30 09:33 | disposition home or self-care (01) ==
PROVIDERS: PCP Family Medicine; Referring Provider Podiatrist Foot & Ankle Surgery; Visit Provider Podiatrist Foot & Ankle Surgery
PROC: (CPT 28825; principal; 2025-05-30 07:45)
DX: M20.5X1 Other deformities of toe(s) (acquired), right foot (principal)
CPT/HCPCS: 28825; J0687; J1100; J2250; J2405; J2704; J3010; J7030; J7050; J7120